=== PATIENT | female | born 1995 | race Caucasian/White ===

== ENCOUNTER 2017-03-16 16:54 | Emergency (ER) | payer OTHER ==
[2017-03-16 17:22] VITALS: BP 104/69; PULSE 72; RESP 18; TEMP 98.6
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
--- NOTE | 2017-03-16 18:13 | XR ---
EXAMINATION TYPE: XR foot complete RT DATE OF EXAM: 03/16/2017 COMPARISON: NONE HISTORY: Pain TECHNIQUE: 3 views FINDINGS: I see no fracture nor dislocation. Metatarsals are intact. IMPRESSION: Negative right foot exam
== END 2017-03-16 18:06 | disposition home or self-care (01) ==
LOC: EC 16:54
DX: S90.111A Contusion of right great toe without damage to nail, initial encounter (principal); S90.121A Contusion of right lesser toe(s) without damage to nail, initial encounter; V98.8XXA Other specified transport accidents, initial encounter; Y92.69 Other specified industrial and construction area as the place of occurrence of the external cause; Y99.0 Civilian activity done for income or pay
CPT/HCPCS: 99284

== ENCOUNTER 2017-06-01 17:41 | Emergency (ER) | payer OTHER ==
[2017-06-01] MEDS ORDERED: ACETAMINOPHEN TAB 325 MG TAB PO STA (17:58)
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
--- NOTE | 2017-06-01 19:03 | CT ---
EXAMINATION TYPE: CT brain wo con DATE OF EXAM: 06/01/2017 COMPARISON: November 04, 2012. HISTORY: Right sided injury today. Complain of headache and dizziness CT DLP: 999.8 mGycm. Automated Exposure Control for Dose Reduction was Utilized. TECHNIQUE: CT scan of the head is performed without contrast. FINDINGS: There is no acute intracranial hemorrhage, mass effect, or midline shift identified. The ventricles and sulci are within normal limits in size. The globes are intact and the visualized sin uses are clear. There is a mucous retention cyst/polyp in the right maxillary sinus which is stable w hen compared to the previous study from November 04, 2012. IMPRESSION: No acute intracranial hemorrhage, mass effect, or midline shift is seen.
[2017-06-01 19:27] VITALS: BP 120/64; PULSE 75; RESP 18; TEMP 98.4
== END 2017-06-01 19:46 | disposition home or self-care (01) ==
LOC: EC 17:41
DX: S06.0X0A Concussion without loss of consciousness, initial encounter (principal); W22.8XXA Striking against or struck by other objects, initial encounter
CPT/HCPCS: 70450; 81025; 99284

== ENCOUNTER 2017-06-05 08:42 | Emergency (ER) | payer OTHER ==
[2017-06-05 08:57] VITALS: BP 124/75; PULSE 101; RESP 18; TEMP 98.1
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
== END 2017-06-05 09:29 | disposition home or self-care (01) ==
LOC: EC 08:42
DX: F07.81 Postconcussional syndrome (principal); R11.0 Nausea
CPT/HCPCS: 99284

== ENCOUNTER → 2017-06-07 | Outpatient (CLI) | payer OTHER ==
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
== END | disposition home or self-care (01) ==
LOC: RADCTMAIN 14:33
PROVIDERS: ATTEND Family Medicine
DX: G44.319 Acute post-traumatic headache, not intractable (principal); R53.83 Other fatigue; R11.0 Nausea
CPT/HCPCS: 70450

== ENCOUNTER 2017-07-26 19:47 | Emergency (ER) | payer OTHER ==
--- NOTE | 2017-07-26 21:36 | ED ---
General Adult HPI - General Chief complaint: Abdominal Pain Stated complaint: abd pain Time Seen by Provider: 07/26/17 21:30 Source: patient, RN notes reviewed Mode of arrival: ambulatory Limitations: no limitations - History of Present Illness Initial comments: Patient is a pleasant 22-year-old female presenting to the emergency department with lower abdominal discomfort. Onset of symptoms was yesterday morning. Discomfort has been somewhat intermittent. Patient has had some similar symptoms previously associated with her irritable bowel syndrome. Patient does have nausea. No vomiting. patient diarrhea. No fever. Patient is approximately 3 weeks . Last menstrual period was . - Related Data Home Medications Medication Instructions Recorded Confirmed Vitafusion Gummies 2 tab PO DAILY 07/26/17 07/26/17 Allergies Allergy/AdvReac Type Severity Reaction Status Date / Time No Known Allergies Allergy Verified 07/26/17 20:42 Review of Systems ROS Statement: Those systems with pertinent positive or pertinent negative responses have been documented in the HPI. ROS Other: All systems not noted in ROS Statement are negative. Constitutional: Denies: fever Eyes: Denies: eye pain ENT: Denies: ear pain Respiratory: Denies: cough Cardiovascular: Denies: chest pain Endocrine: Denies: fatigue Gastrointestinal: Reports: abdominal pain Genitourinary: Denies: urgency Musculoskeletal: Denies: back pain Skin: Denies: rash Neurological: Denies: weakness Past Medical History Past Medical History: No Reported History History of Any Multi-Drug Resistant Organisms: None Reported Past Surgical History: Adenoidectomy, Tonsillectomy Past Psychological History: Anxiety, Depression Smoking Status: Never smoker Past Alcohol Use History: None Reported Past Drug Use History: None Reported General Exam Limitations: no limitations General appearance: alert, in no apparent distress Head exam: Present: atraumatic Eye exam: Present: normal appearance, PERRL ENT exam: Present: normal oropharynx Neck exam: Present: normal inspection Respiratory exam: Present: normal lung sounds bilaterally Cardiovascular Exam: Present: regular rate, normal rhythm GI/Abdominal exam: Present: soft, tenderness (Mild tenderness in the lower abdomen). Absent: distended, guarding, rebound, rigid External exam: Present: normal external exam (RN Whit is present) Speculum exam: Present: normal speculum exam By manual exam: Present: normal by manual exam Extremities exam: Present: normal inspection Neurological exam: Present: alert Psychiatric exam: Present: normal affect, normal mood Skin exam: Present: normal color Course Vital Signs 07/26/17 20:15 Temperature 98.7 F Pulse Rate 76 Respiratory 18 Rate Blood Pressure 119/67 O2 Sat by Pulse 100 Oximetry Medical Decision Making - Medical Decision Making Patient is reexamined in updated. Patient and mother are made aware that tubal/ ectopic has not completely ruled out at this time. Patient is aware of need for repeat beta hCG level in 48 hours. Patient is also made aware of need to follow-up with [facility] on Saturday. Patient states she has an appointment with her primary care physician on Saturday however is advised to follow-up with [facility] sooner. - Lab Data Result diagrams: 07/26/17 21:40 07/26/17 21:40 Lab Results 07/26/17 07/26/17 07/26/17 Range/Units 20:15 21:40 21:40 WBC 7.8 (4.0-11.0) k/uL RBC 4.13 (3.80-5.40) m/uL Hgb 12.6 (11.4-16.0) gm/dL Hct 37.5 (34.0-46.0) % MCV 91.0 (80.0-100.0) fL MCH 30.4 (25.0-35.0) pg MCHC 33.5 (31.0-37.0) g/dL RDW 13.7 (11.5-15.5) % Plt Count 268 (150-450) k/uL Neutrophils % 56 % Lymphocytes % 34 % Monocytes % 5 % Eosinophils % 1 % Basophils % 1 % Neutrophils # 4.4 (1.3-7.7) k/uL Lymphocytes # 2.7 (1.0-4.8) k/uL Monocytes # 0.4 (0-1.0) k/uL Eosinophils # 0.1 (0-0.7) k/uL Basophils # 0.1 (0-0.2) k/uL Sodium 139 (137-145) mmol/L Potassium 3.9 (3.5-5.1) mmol/L Chloride 106 (98-107) mmol/L Carbon Dioxide 21 L (22-30) mmol/L Anion Gap 12 mmol/L BUN 14 (7-17) mg/dL Creatinine 0.60 (0.52-1.04) mg/dL Est GFR (MDRD) Af Amer >60 (>60 ml/min/1.73 sqM) Est GFR (MDRD) Non-Af >60 (>60 ml/min/1.73 sqM) Glucose 76 (74-99) mg/dL Calcium 9.1 (8.4-10.2) mg/dL Total Bilirubin 0.7 (0.2-1.3) mg/dL AST 18 (14-36) U/L ALT 20 (9-52) U/L Alkaline Phosphatase 69 (38-126) U/L Total Protein 6.7 (6.3-8.2) g/dL Albumin 4.2 (3.5-5.0) g/dL HCG, Quant 113.1 mIU/mL Urine Color Yellow Urine Appearance Cloudy H (Clear) Urine pH 5.5 (5.0-8.0) Ur Specific [place] 1.018 (1.001-1.035) Urine Protein Negative (Negative) Urine Glucose (UA) Negative (Negative) Urine Ketones 2+ H (Negative) Urine Blood Negative (Negative) Urine Nitrite Negative (Negative) Urine Bilirubin Negative (Negative) Urine Urobilinogen <2.0 (<2.0) mg/dL Ur Leukocyte Esterase Negative (Negative) Urine RBC <1 (0-5) /hpf Urine WBC 2 (0-5) /hpf Ur Squamous Epith Cells 17 H (0-4) /hpf Urine Bacteria Rare H (None) /hpf Urine Mucus Rare H (None) /hpf Blood Type Blood Type Recheck 07/26/17 Range/Units 21:40 WBC (4.0-11.0) k/uL RBC (3.80-5.40) m/uL Hgb (11.4-16.0) gm/dL Hct (34.0-46.0) % MCV (80.0-100.0) fL MCH (25.0-35.0) pg MCHC (31.0-37.0) g/dL RDW (11.5-15.5) % Plt Count (150-450) k/uL Neutrophils % % Lymphocytes % % Monocytes % % Eosinophils % % Basophils % % Neutrophils # (1.3-7.7) k/uL Lymphocytes # (1.0-4.8) k/uL Monocytes # (0-1.0) k/uL Eosinophils # (0-0.7) k/uL Basophils # (0-0.2) k/uL Sodium (137-145) mmol/L Potassium (3.5-5.1) mmol/L Chloride (98-107) mmol/L Carbon Dioxide (22-30) mmol/L Anion Gap mmol/L BUN (7-17) mg/dL Creatinine (0.52-1.04) mg/dL Est GFR (MDRD) Af Amer (>60 ml/min/1.73 sqM) Est GFR (MDRD) Non-Af (>60 ml/min/1.73 sqM) Glucose (74-99) mg/dL Calcium (8.4-10.2) mg/dL Total Bilirubin (0.2-1.3) mg/dL AST (14-36) U/L ALT (9-52) U/L Alkaline Phosphatase (38-126) U/L Total Protein (6.3-8.2) g/dL Albumin (3.5-5.0) g/dL HCG, Quant mIU/mL Urine Color Urine Appearance (Clear) Urine pH (5.0-8.0) Ur Specific [place] (1.001-1.035) Urine Protein (Negative) Urine Glucose (UA) (Negative) Urine Ketones (Negative) Urine Blood (Negative) Urine Nitrite (Negative) Urine Bilirubin (Negative) Urine Urobilinogen (<2.0) mg/dL Ur Leukocyte Esterase (Negative) Urine RBC (0-5) /hpf Urine WBC (0-5) /hpf Ur Squamous Epith Cells (0-4) /hpf Urine Bacteria (None) /hpf Urine Mucus (None) /hpf Blood Type O Positive Blood Type Recheck No - Radiology Data Radiology results: report reviewed (Pelvic ultrasound shows no evidence of or ectopic .) Disposition Clinical Impression: Abdominal pain Disposition: HOME SELF-CARE Condition: Stable Instructions: Abdominal Pain in (ED) Additional Instructions: Please follow-up with primary care physician as scheduled or earlier. Please follow-up with [facility] on Saturday. Return for increased pain, vaginal bleeding, fevers, worsening or changing symptoms or other concerns. Description written for repeat serum beta hCG in 48 hours for right now. Referrals: Lynn Clemens MD [Primary Care Provider] - 1-2 days Fely Garcia DO [Doctor of Osteopathic Medicine] - 1-2 days Time of Disposition: 23:16
[2017-07-26 21:54] LABS: Basophils # (A) 0.1 k/uL (0-0.2); Basophils % (A) 1 %; CH 30.2; CHCM 33.3; Eosinophils # (A) 0.1 k/uL (0-0.7); Eosinophils % (A) 1 %; HCT 37.5 % (34.0-46.0); HDW 2.27; HGB 12.6 gm/dL (11.4-16.0); Luc # (Auto) 0.17; Luc % (Auto) 2; Lymphocytes # (A) 2.7 k/uL (1.0-4.8); Lymphocytes % (A) 34 %; MCH 30.4 pg (25.0-35.0); MCHC 33.5 g/dL (31.0-37.0); Mean Platelet Volume 7.9; Monocytes # (A) 0.4 k/uL (0-1.0); Monocytes % (A) 5 %; Neutrophils # (A) 4.4 k/uL (1.3-7.7); Neutrophils % (A) 56 %; RBC 4.13 m/uL (3.80-5.40); RDW 13.7 % (11.5-15.5); WBC 7.8 k/uL (4.0-11.0); WBC (Perox) 8.06
[2017-07-26 21:56] LABS: Appearance,Urine Cloudy (Clear); Bacteria,Urine Rare /hpf; Bilirubin,Urine Negative (Negative); Glucose,Urine (UA) Negative (Negative); Ketones,Urine 2+ (Negative); Leukocyte Esterase,Urine Negative (Negative); Mucus,Urine Rare /hpf; Nitrite,Urine Negative (Negative); PH, Urine 5.5 (5.0-8.0); Particle Count 7085; Protein,Urine Negative (Negative); RBC,Urine <1 /hpf (0-5); Specific Gravity,Urine 1.018 (1.001-1.035); Squamous Epithelial Cell,Urine 17 /hpf (0-4); UA Billing (MACRO vs. MICRO) MICRO; Urobilinogen,Urine <2.0 mg/dL (<2.0); WBC,Urine 2 /hpf (0-5)
[2017-07-26 22:07] LABS: ALT 20 U/L (9-52); AST 18 U/L (14-36); Alkaline Phosphatase 69 U/L (38-126); Anion Gap 12 mmol/L; Blood Urea Nitrogen 14 mg/dL (7-17); Calcium 9.1 mg/dL (8.4-10.2); Carbon Dioxide 21 mmol/L (22-30); Chloride 106 mmol/L (98-107); Glucose 76 mg/dL (74-99); Non-African American GFR(MDRD) >60 (>60 ml/min/1.73 sqM); Potassium 3.9 mmol/L (3.5-5.1); Sodium 139 mmol/L (137-145); Total Bilirubin 0.7 mg/dL (0.2-1.3); Total Protein 6.7 g/dL (6.3-8.2)
--- NOTE | 2017-07-26 22:48 | US ---
EXAMINATION TYPE: US OB <= 14 wks transvag DATE OF EXAM: 07/26/2017 COMPARISON: NONE CLINICAL HISTORY: pain. EXAM PERFORMED: Transvaginal (TV) and Transabdominal (TA) EXAM MEASUREMENTS: GESTATIONAL AGE / DATING Physician Established: Not yet established Dates by LMP: (4 weeks/0 days) EDC: 04/04/2018 Dates by First Scan: No previous this is first scan Dates by Current Scan for: No IUP seen at this time MATERNAL ANATOMY Uterus: 7.5 x 3.5 x 5.0 cm Right Ovary: 2.6 x 1.6 x 1.4cm Left Ovary: 3.2 x 2.1 x 3.5cm Post CDS / Adnexa: wnl Presence of free fluid: no Presence of corpus luteal cyst: no GESTATION / SURVEY CRL: Not seen at this time MSD: Not seen at this time Yolk Sac (normal less than 6mm): Not seen IUP: No IUP seen at this time Date of LMP: 06/28/2018 Beta HcG (if available): Not available at this time No IUP visualized at this time IMPRESSION: No evidence of a . No evidence of ectopic . MTDD
[2017-07-26 23:45] VITALS: BP 110/59; PULSE 83; RESP 14; TEMP 97.8
[2017-07-29 12:05] LABS: Chlamydia/GC Source Vaginal
== END 2017-07-26 23:46 | disposition home or self-care (01) ==
LOC: EC 19:47
DX: O99.89 Other specified diseases and conditions complicating pregnancy, childbirth and the puerperium (principal); R10.30 Lower abdominal pain, unspecified; R11.0 Nausea; Z79.899 Other long term (current) drug therapy; Z3A.01 Less than 8 weeks gestation of pregnancy
CPT/HCPCS: 36415; 76801; 76817; 80053; 81001; 84702; 85025; 86900; 86901; 87070; 87205; 87491; 87591; 87808; 99284

== ENCOUNTER 2017-08-17 21:44 | Emergency (ER) | payer OTHER ==
[2017-08-17 21:50] VITALS: TEMP 98
[2017-08-17 22:50] LABS: Appearance,Urine Cloudy (Clear); Bacteria,Urine Rare /hpf; Bilirubin,Urine Negative (Negative); Blood,Urine Negative (Negative); Color,Urine Yellow; Glucose,Urine (UA) Negative (Negative); Ketones,Urine Trace (Negative); Leukocyte Esterase,Urine Negative (Negative); Mucus,Urine Rare /hpf; Nitrite,Urine Negative (Negative); Protein,Urine Trace (Negative); RBC,Urine 1 /hpf (0-5); Specific Gravity,Urine 1.029 (1.001-1.035); Squamous Epithelial Cell,Urine 8 /hpf (0-4); WBC,Urine 2 /hpf (0-5)
--- NOTE | 2017-08-17 23:13 | ED ---
Skin/Abscess/FB HPI - General Chief complaint: Skin/Abscess/Foreign Body Stated complaint: Rash Time Seen by Provider: 08/17/17 21:55 Source: patient, RN notes reviewed, old records reviewed Mode of arrival: ambulatory Limitations: no limitations - History of Present Illness Initial comments: This is a 22-year-old female presents in there to department today to complain of a rash of her vaginal area for the past three days. Very painful. She reports that she's been diagnosed with herpes in the past. She's currently eight weeks . She denies any fever chills. She denies any vaginal discharge. She reports she came back from [place] and is stressed due to family trouble. This rash started then. - Related Data Home Medications Medication Instructions Recorded Confirmed Vitafusion Gummies 2 tab PO DAILY 07/26/17 08/17/17 Previous Rx's Medication Instructions Recorded Nitrofurantoin Monohyd/M-Cryst 100 mg PO Q12HR #14 cap 08/17/17 [Macrobid] valACYclovir HCL [Valtrex] 1,000 mg PO Q12HR #20 tab 08/17/17 Allergies Allergy/AdvReac Type Severity Reaction Status Date / Time No Known Allergies Allergy Verified 08/17/17 21:50 Review of Systems ROS Statement: Those systems with pertinent positive or pertinent negative responses have been documented in the HPI. ROS Other: All systems not noted in ROS Statement are negative. Past Medical History Past Medical History: No Reported History History of Any Multi-Drug Resistant Organisms: None Reported Past Surgical History: Adenoidectomy, Tonsillectomy Past Psychological History: Anxiety, Depression Smoking Status: Never smoker Past Alcohol Use History: None Reported Past Drug Use History: None Reported General Exam - General Exam Comments Initial Comments: This is a 22 year old female, no distress Limitations: no limitations General appearance: alert, in no apparent distress Head exam: Present: atraumatic, normocephalic, normal inspection Eye exam: Present: normal appearance, PERRL, EOMI. Absent: scleral icterus, conjunctival injection, periorbital swelling ENT exam: Present: normal exam, mucous membranes moist Neck exam: Present: normal inspection. Absent: tenderness, meningismus, lymphadenopathy Respiratory exam: Present: normal lung sounds bilaterally. Absent: respiratory distress, wheezes, rales, rhonchi, stridor Cardiovascular Exam: Present: regular rate, normal rhythm, normal heart sounds. Absent: systolic murmur, diastolic murmur, rubs, gallop, clicks GI/Abdominal exam: Present: soft, normal bowel sounds. Absent: distended, tenderness, guarding, rebound, rigid External exam: Present: normal external exam, lesions (erythematous sporadic lesions over bilateral labia. Some area of blistering. ) Extremities exam: Present: normal inspection, full ROM, normal capillary refill. Absent: tenderness, pedal edema, joint swelling, calf tenderness Back exam: Present: normal inspection Neurological exam: Present: alert, oriented X3, CN II-XII intact Psychiatric exam: Present: normal affect, normal mood Skin exam: Present: warm, dry, intact, normal color. Absent: rash Course Vital Signs 08/17/17 08/17/17 21:48 23:39 Temperature 98 F Pulse Rate 116 H 91 Respiratory 18 16 Rate Blood Pressure 138/69 123/63 O2 Sat by Pulse 98 98 Oximetry Medical Decision Making - Medical Decision Making This is a 22 year old female with 3 days of vaginal rash. She has been diagnosed with herpes in the past. Rash appears to be similiar to herpes genitalia. Patient urinalysis shows evidence of bacteruria. she is 8 weeks . I will start patient on macrobid for bacteruiria, as well as acyclovir. discussed follow up with OBGYN and return parameters discussed. - Lab Data Lab Results 08/17/17 Range/Units 22:38 Urine Color Yellow Urine Appearance Cloudy H (Clear) Urine pH 6.0 (5.0-8.0) Ur Specific [place] 1.029 (1.001-1.035) Urine Protein Trace H (Negative) Urine Glucose (UA) Negative (Negative) Urine Ketones Trace H (Negative) Urine Blood Negative (Negative) Urine Nitrite Negative (Negative) Urine Bilirubin Negative (Negative) Urine Urobilinogen 2.0 (<2.0) mg/dL Ur Leukocyte Esterase Negative (Negative) Urine RBC 1 (0-5) /hpf Urine WBC 2 (0-5) /hpf Ur Squamous Epith Cells 8 H (0-4) /hpf Urine Bacteria Rare H (None) /hpf Urine Mucus Rare H (None) /hpf Disposition Clinical Impression: Herpes genitalia, Bacteriuria during Disposition: HOME SELF-CARE Condition: Good Instructions: Genital Herpes Simplex (ED) Additional Instructions: is follow-up with primary care provider. Return to emergency department if any alarming signs or symptoms occur. Prescriptions: Nitrofurantoin Monohyd/M-Cryst [Macrobid] 100 mg PO Q12HR #14 cap valACYclovir HCL [Valtrex] 1,000 mg PO Q12HR #20 tab Referrals: Lynn Clemens MD [Primary Care Provider] - 1-2 days Time of Disposition: 23:11
[2017-08-17 23:40] VITALS: BP 123/63; PULSE 91; RESP 16
--- NOTE | 2017-08-19 03:00 | CDI ---
Documentation Clarification OP Dear KENNETH Adam: Please do addendum to ED report for HPI , Physical exam and MDM. Thank you, Julienne Chase Specimen Processor If you have any question, Please contact manager social media at [phone] [facility]
== END 2017-08-17 23:40 | disposition home or self-care (01) ==
LOC: EC 21:44
DX: O98.311 Other infections with a predominantly sexual mode of transmission complicating pregnancy, first trimester (principal); A60.09 Herpesviral infection of other urogenital tract; O23.40 Unspecified infection of urinary tract in pregnancy, unspecified trimester; R82.71 Bacteriuria; Z3A.08 8 weeks gestation of pregnancy
CPT/HCPCS: 81001; 87086; 99283

== ENCOUNTER → 2017-08-27 | Outpatient (CLI) | payer BC, OTHER ==
--- NOTE | 2017-08-27 18:30 | US ---
EXAMINATION TYPE: US OB <= 14 wk fetus DATE OF EXAM: 08/27/2017 COMPARISON: CLINICAL HISTORY: Z34.01 Encounter for supervision of normal first p. Dates EXAM PERFORMED: Transabdominal (TA) EXAM MEASUREMENTS: GESTATIONAL AGE / DATING Dates by LMP: (8 weeks/4 days) EDC: 04/04/2018 Dates by First Scan: IUP not seen with first scan Dates by Current Scan for: (8 weeks/3 days) EDC: 04/05/2018 MATERNAL ANATOMY Uterus: 8.2 x 6.5 x 6.0 cm Right Ovary: 3.0 x 1.9 x 1.5 cm Left Ovary: 2.9 x 2.2 x 1.5 cm Post CDS / Adnexa: no free fluid Presence of free fluid: no Presence of corpus luteal cyst: no Presence of subchorionic bleed: Hypoechoic lesion seen in JUDAH adjacent to gestational sac = 1.8 x 2.3 x 1.3 cm GESTATION / SURVEY CRL: 1.9 cm (8 weeks/3 days) MSD: seen, not measured Yolk Sac (normal less than 6mm): 2.8 mm Heart Rate: 168 bpm Rhythm: Normal IUP: Viable IUP Date of LMP: 06/28/2017 Beta HcG (if available): not available Live IUP measuring 8 weeks 3 days. IMPRESSION: The ultrasound gestational age is 8 weeks and 3 days. There is probably a very small subchorionic hem orrhage..
== END | disposition home or self-care (01) ==
LOC: RADUSWWP 16:09
PROVIDERS: ATTEND Obstetrics & Gynecology
DX: Z34.01 Encounter for supervision of normal first pregnancy, first trimester (principal); Z3A.08 8 weeks gestation of pregnancy
CPT/HCPCS: 76801

== ENCOUNTER 2017-10-02 17:25 | Emergency (ER) | payer BC, OTHER ==
[2017-10-02 17:50] VITALS: RESP 18
--- NOTE | 2017-10-02 18:48 | ED ---
General Adult HPI - General Chief complaint: Nausea/Vomiting/Diarrhea Stated complaint: poss med reaction, 14 weeks preg Time Seen by Provider: 10/02/17 18:06 Source: patient, RN notes reviewed Mode of arrival: ambulatory Limitations: no limitations - History of Present Illness Initial comments: 22-year-old female presents to the emergency department with a chief complaint of episode of diarrhea. She states that she is currently on an antibiotic that she does not recall the name for UTI that her BILLBOARD POSTER Y and started on her a few days ago. She states she had one episode of diarrhea and became very concerned. She's been very nervous throughout this entire . She states that she she is very anxious about the whole process she's always anxious about what could happen in the she states this diarrhea just made her feel weird so she thought that she should be seen. She has any abdominal pain she denies any vaginal discharge or any vaginal bleeding. She states she had one episode of diarrhea and since has not had any. She was concerned due the episode and she read the package insert of the antibiotic that said that she should contact her doctor and her doctor is not in the office so she is here. Patient denies any recent fever, chills, shortness of breath, chest pain, back pain, abdominal pain, nausea vomiting, numbness or tingling, dysuria or hematuria, constipation, headaches or visual changes, or any other current symptoms. - Related Data Home Medications Medication Instructions Recorded Confirmed metroNIDAZOLE [Flagyl] 500 mg PO BID 10/02/17 10/02/17 Allergies Allergy/AdvReac Type Severity Reaction Status Date / Time No Known Allergies Allergy Verified 10/02/17 17:50 Review of Systems ROS Statement: Those systems with pertinent positive or pertinent negative responses have been documented in the HPI. ROS Other: All systems not noted in ROS Statement are negative. Past Medical History Past Medical History: No Reported History History of Any Multi-Drug Resistant Organisms: None Reported Past Surgical History: Adenoidectomy, Tonsillectomy Past Psychological History: Anxiety, Depression Smoking Status: Never smoker Past Alcohol Use History: None Reported Past Drug Use History: None Reported General Exam Limitations: no limitations General appearance: alert, in no apparent distress Eye exam: Present: normal appearance, PERRL, EOMI. Absent: scleral icterus, conjunctival injection, periorbital swelling ENT exam: Present: normal exam, mucous membranes moist Neck exam: Present: normal inspection. Absent: tenderness, meningismus, lymphadenopathy Respiratory exam: Present: normal lung sounds bilaterally. Absent: respiratory distress, wheezes, rales, rhonchi, stridor Cardiovascular Exam: Present: regular rate, normal rhythm, normal heart sounds. Absent: systolic murmur, diastolic murmur, rubs, gallop, clicks GI/Abdominal exam: Present: soft, normal bowel sounds. Absent: distended, tenderness, guarding, rebound, rigid Neurological exam: Present: alert, oriented X3 Psychiatric exam: Present: normal affect, normal mood Skin exam: Present: warm, dry, intact, normal color. Absent: rash Course Vital Signs 10/02/17 17:44 Temperature 97.9 F Pulse Rate 103 H Respiratory 18 Rate Blood Pressure 113/68 O2 Sat by Pulse 100 Oximetry Medical Decision Making - Medical Decision Making 22-year-old female presents for diarrhea who is currently . Patient has a lot of anxiety about her . So far she has been told by the OB/ QUALITY IMPROVEMENT ANALYST everything is normal. At this time patient's urinalysis has been reviewed. At this time patient is informed to increase fluids in the diet. At this time we did discuss continued follow-up with the BILLBOARD POSTER. We discussed return parameters all questions. Patient stated that she understood and she is agreement this plan. She'll be discharged - Lab Data Lab Results 10/02/17 Range/Units 18:54 Urine Color Yellow Urine Appearance Clear (Clear) Urine pH 6.0 (5.0-8.0) Ur Specific [place] 1.019 (1.001-1.035) Urine Protein Negative (Negative) Urine Glucose (UA) Negative (Negative) Urine Ketones Trace H (Negative) Urine Blood Negative (Negative) Urine Nitrite Negative (Negative) Urine Bilirubin Negative (Negative) Urine Urobilinogen <2.0 (<2.0) mg/dL Ur Leukocyte Esterase Negative (Negative) Disposition Clinical Impression: Diarrhea Disposition: HOME SELF-CARE Condition: Stable Instructions: Acute Diarrhea (ED) Additional Instructions: Please use medication as discussed. Please follow up with family doctor if symptoms have not improved over the next two days. Please return to the emergency room if your symptoms increase or worsen or for any other concerns. Referrals: Lynn Clemens MD [Primary Care Provider] - 1-2 days Time of Disposition: 19:18
[2017-10-02 19:05] LABS: Appearance,Urine Clear (Clear); Bilirubin,Urine Negative (Negative); Blood,Urine Negative (Negative); Color,Urine Yellow; Glucose,Urine (UA) Negative (Negative); Ketones,Urine Trace (Negative); Leukocyte Esterase,Urine Negative (Negative); Nitrite,Urine Negative (Negative); Protein,Urine Negative (Negative); Specific Gravity,Urine 1.019 (1.001-1.035); Urobilinogen,Urine <2.0 mg/dL (<2.0)
[2017-10-02 19:40] VITALS: BP 118/58; PULSE 89; TEMP 98.2
== END 2017-10-02 19:39 | disposition home or self-care (01) ==
LOC: EC 17:25
DX: O99.89 Other specified diseases and conditions complicating pregnancy, childbirth and the puerperium (principal); R19.7 Diarrhea, unspecified; O99.342 Other mental disorders complicating pregnancy, second trimester; F41.9 Anxiety disorder, unspecified; Z3A.14 14 weeks gestation of pregnancy
CPT/HCPCS: 81003; 87086; 99284

== ENCOUNTER 2017-11-06 17:32 | Emergency (ER) | payer BC, OTHER ==
[2017-11-06 17:44] VITALS: RESP 18; TEMP 97.4
[2017-11-06] MEDS ORDERED: SODIUM CHLORIDE 0.9% 1,000 ML IV STA (18:07)
--- NOTE | 2017-11-06 18:08 | ED ---
Abdominal Pain HPI - General Chief Complaint: Abdominal Pain Stated Complaint: Stomach pain/19 wks Time Seen by Provider: 11/06/17 17:55 Source: patient, RN notes reviewed, old records reviewed Mode of arrival: ambulatory Limitations: no limitations - History of Present Illness Initial Comments: Physical is a 22-year-old female presents emergency Department chief complaint of syncopal episode. She is currently 19 weeks . She states that she started to feel very weird today she thought she initially was having episode of low blood sugar. She states that she also has chronic hyponatremia but has been eating a lot of salty foods lately since she does not believe that the hyponatremia is related to her syncopal episode. Patient states that yesterday she did have an asthma attack which she was "wrestling with her boyfriend". Patient reports that she does not have an inhaler that she is regular. She states that she got over those symptoms briefly denies any chest pain or shortness of breath at this time. She states that she's been having some lower abdominal discomfort during her entire related to the baby growing and stretching. - Related Data Home Medications Medication Instructions Recorded Confirmed Acetaminophen [Tylenol Extra 1,000 mg PO BID PRN 11/06/17 11/06/17 Strength] Pnv No.95/Ferrous Fum/Folic AC 1 tab PO DAILY 11/06/17 11/06/17 [ Multivitamin Tablet] Allergies Allergy/AdvReac Type Severity Reaction Status Date / Time No Known Allergies Allergy Verified 11/06/17 18:31 Review of Systems ROS Statement: Those systems with pertinent positive or pertinent negative responses have been documented in the HPI. ROS Other: All systems not noted in ROS Statement are negative. Past Medical History Past Medical History: No Reported History History of Any Multi-Drug Resistant Organisms: None Reported Past Surgical History: Adenoidectomy, Tonsillectomy Past Psychological History: Anxiety, Depression Smoking Status: Never smoker Past Alcohol Use History: None Reported Past Drug Use History: None Reported General Exam - General Exam Comments Initial Comments: 22-year-old female. No acute distress. Limitations: no limitations General appearance: alert, in no apparent distress Head exam: Present: atraumatic, normocephalic, normal inspection Eye exam: Present: normal appearance, PERRL, EOMI. Absent: scleral icterus, conjunctival injection, periorbital swelling ENT exam: Present: normal exam, mucous membranes moist Neck exam: Present: normal inspection. Absent: tenderness, meningismus, lymphadenopathy Respiratory exam: Present: normal lung sounds bilaterally. Absent: respiratory distress, wheezes, rales, rhonchi, stridor Cardiovascular Exam: Present: regular rate, normal rhythm, normal heart sounds. Absent: systolic murmur, diastolic murmur, rubs, gallop, clicks GI/Abdominal exam: Present: soft, tenderness (Patient reports some left lower quadrant tenderness has been chronic her entire . Patient has protuberant abdomen consistent with proximal smelling 19/20 weeks gestation.), normal bowel sounds. Absent: distended, guarding, rebound, rigid Extremities exam: Present: normal inspection, full ROM, normal capillary refill. Absent: tenderness, pedal edema, joint swelling, calf tenderness Back exam: Present: normal inspection Neurological exam: Present: alert, oriented X3, CN II-XII intact Psychiatric exam: Present: normal affect, normal mood Skin exam: Present: warm, dry, intact, normal color. Absent: rash Course Vital Signs 11/06/17 11/06/17 17:40 18:54 Temperature 97.4 F L Pulse Rate 104 H 86 Respiratory 18 18 Rate Blood Pressure 111/60 120/66 O2 Sat by Pulse 98 99 Oximetry Medical Decision Making - Medical Decision Making Patient is a 22-year-old female is 19 weeks presents after blood. Initial vitals to low blood sugar or low sodium. She snacks and that had a short syncopal episode. She was sitting position and felt slightly forward. She denies any specific pain chest pain shortness of breath. Denies any abdominal pain cramping. Patient was given IV fluids labwork obtained. Patient 's lower was all reviewed with a normal heart tones are between 150 and 140 range. Patient reports otherwise she feels well. Urinalysis negative for infection. Patient is reevaluated states she would like to go home after seeing the fluids. I discussed that she needs to remain hydrated. Discussed return to emergency department if any alarming signs or symptoms occur. She follows up with her WEB PRESS OPERATOR in the next couple days. - Lab Data Result diagrams: 11/06/17 18:12 11/06/17 18:12 Lab Results 11/06/17 11/06/17 11/06/17 Range/Units 18:12 18:12 18:12 WBC 12.1 H (4.0-11.0) k/uL RBC 4.10 (3.80-5.40) m/uL Hgb 12.4 (11.4-16.0) gm/dL Hct 36.3 (34.0-46.0) % MCV 88.4 (80.0-100.0) fL MCH 30.3 (25.0-35.0) pg MCHC 34.2 (31.0-37.0) g/dL RDW 13.1 (11.5-15.5) % Plt Count 269 (150-450) k/uL Neutrophils % 76 % Lymphocytes % 17 % Monocytes % 4 % Eosinophils % 1 % Basophils % 0 % Neutrophils # 9.3 H (1.3-7.7) k/uL Lymphocytes # 2.1 (1.0-4.8) k/uL Monocytes # 0.5 (0-1.0) k/uL Eosinophils # 0.2 (0-0.7) k/uL Basophils # 0.0 (0-0.2) k/uL PT (9.0-12.0) sec INR (<1.2) APTT (22.0-30.0) sec Sodium 139 (137-145) mmol/L Potassium 4.4 (3.5-5.1) mmol/L Chloride 108 H (98-107) mmol/L Carbon Dioxide 20 L (22-30) mmol/L Anion Gap 11 mmol/L BUN 9 (7-17) mg/dL Creatinine 0.40 L (0.52-1.04) mg/dL Est GFR (CKD-EPI)AfAm >90 (>60 ml/min/1.73 sqM) Est GFR (CKD-EPI)NonAf >90 (>60 ml/min/1.73 sqM) Glucose 85 (74-99) mg/dL Calcium 9.6 (8.4-10.2) mg/dL Magnesium 1.8 (1.6-2.3) mg/dL Total Bilirubin 0.4 (0.2-1.3) mg/dL AST 23 (14-36) U/L ALT 11 (9-52) U/L Alkaline Phosphatase 59 (38-126) U/L Total Creatine Kinase 53 (30-135) U/L CK-MB (CK-2) 0.4 (0.0-2.4) ng/mL CK-MB (CK-2) Rel Index 0.8 Troponin I <0.012 (0.000-0.034) ng/mL Total Protein 7.2 (6.3-8.2) g/dL Albumin 4.2 (3.5-5.0) g/dL Urine Color Urine Appearance (Clear) Urine pH (5.0-8.0) Ur Specific [place] (1.001-1.035) Urine Protein (Negative) Urine Glucose (UA) (Negative) Urine Ketones (Negative) Urine Blood (Negative) Urine Nitrite (Negative) Urine Bilirubin (Negative) Urine Urobilinogen (<2.0) mg/dL Ur Leukocyte Esterase (Negative) 11/06/17 11/06/17 Range/Units 18:12 18:12 WBC (4.0-11.0) k/uL RBC (3.80-5.40) m/uL Hgb (11.4-16.0) gm/dL Hct (34.0-46.0) % MCV (80.0-100.0) fL MCH (25.0-35.0) pg MCHC (31.0-37.0) g/dL RDW (11.5-15.5) % Plt Count (150-450) k/uL Neutrophils % % Lymphocytes % % Monocytes % % Eosinophils % % Basophils % % Neutrophils # (1.3-7.7) k/uL Lymphocytes # (1.0-4.8) k/uL Monocytes # (0-1.0) k/uL Eosinophils # (0-0.7) k/uL Basophils # (0-0.2) k/uL PT 9.6 (9.0-12.0) sec INR 1.0 (<1.2) APTT 24.8 (22.0-30.0) sec Sodium (137-145) mmol/L Potassium (3.5-5.1) mmol/L Chloride (98-107) mmol/L Carbon Dioxide (22-30) mmol/L Anion Gap mmol/L BUN (7-17) mg/dL Creatinine (0.52-1.04) mg/dL Est GFR (CKD-EPI)AfAm (>60 ml/min/1.73 sqM) Est GFR (CKD-EPI)NonAf (>60 ml/min/1.73 sqM) Glucose (74-99) mg/dL Calcium (8.4-10.2) mg/dL Magnesium (1.6-2.3) mg/dL Total Bilirubin (0.2-1.3) mg/dL AST (14-36) U/L ALT (9-52) U/L Alkaline Phosphatase (38-126) U/L Total Creatine Kinase (30-135) U/L CK-MB (CK-2) (0.0-2.4) ng/mL CK-MB (CK-2) Rel Index Troponin I (0.000-0.034) ng/mL Total Protein (6.3-8.2) g/dL Albumin (3.5-5.0) g/dL Urine Color Colorless Urine Appearance Clear (Clear) Urine pH 5.5 (5.0-8.0) Ur Specific [place] 1.006 (1.001-1.035) Urine Protein Negative (Negative) Urine Glucose (UA) Negative (Negative) Urine Ketones Negative (Negative) Urine Blood Negative (Negative) Urine Nitrite Negative (Negative) Urine Bilirubin Negative (Negative) Urine Urobilinogen <2.0 (<2.0) mg/dL Ur Leukocyte Esterase Negative (Negative) - Radiology Data Radiology results: report reviewed EKG sinus tachycardia, ventricular rate of 102 bpm. ID interval 132 ms. QRS duration 94 ms. QT QTc is 328/427 ms. No evidence of ST elevation or T-wave inversion. On suture ventricular arrhythmias. Disposition Clinical Impression: Syncope, Disposition: HOME SELF-CARE Condition: Good Instructions: Syncope (ED) Additional Instructions: Patient is follow-up with WEB PRESS OPERATOR. Patient remaining hydrated. Has small frequent snacks throughout the day. Return to the emergency department if any alarming signs or symptoms occur. Referrals: Lynn Clemens MD [Primary Care Provider] - 1-2 days Time of Disposition: 19:52
[2017-11-06 18:26] LABS: Basophils % (A) 0 %; Eosinophils # (A) 0.2 k/uL (0-0.7); Eosinophils % (A) 1 %; HCT 36.3 % (34.0-46.0); HGB 12.4 gm/dL (11.4-16.0); Lymphocytes # (A) 2.1 k/uL (1.0-4.8); Lymphocytes % (A) 17 %; MCH 30.3 pg (25.0-35.0); MCHC 34.2 g/dL (31.0-37.0); MCV 88.4 fL (80.0-100.0); Mean Platelet Volume 7.4; Monocytes # (A) 0.5 k/uL (0-1.0); Monocytes % (A) 4 %; Neutrophils # (A) 9.3 k/uL (1.3-7.7); Neutrophils % (A) 76 %; Platelet Count 269 k/uL (150-450); RDW 13.1 % (11.5-15.5); WBC 12.1 k/uL (4.0-11.0)
[2017-11-06 18:28] LABS: Appearance,Urine Clear (Clear); Bilirubin,Urine Negative (Negative); Blood,Urine Negative (Negative); Color,Urine Colorless; Glucose,Urine (UA) Negative (Negative); Ketones,Urine Negative (Negative); Leukocyte Esterase,Urine Negative (Negative); Nitrite,Urine Negative (Negative); PH, Urine 5.5 (5.0-8.0); Protein,Urine Negative (Negative); Specific Gravity,Urine 1.006 (1.001-1.035); Urobilinogen,Urine <2.0 mg/dL (<2.0)
[2017-11-06 18:46] LABS: ALT 11 U/L (9-52); AST 23 U/L (14-36); Albumin 4.2 g/dL (3.5-5.0); Alkaline Phosphatase 59 U/L (38-126); Anion Gap 11 mmol/L; Blood Urea Nitrogen 9 mg/dL (7-17); Calcium 9.6 mg/dL (8.4-10.2); Carbon Dioxide 20 mmol/L (22-30); Chloride 108 mmol/L (98-107); Glucose 85 mg/dL (74-99); Magnesium 1.8 mg/dL (1.6-2.3); Partial Thromboplastin Time 24.8 sec (22.0-30.0); Potassium 4.4 mmol/L (3.5-5.1); Prothrombin Time 9.6 sec (9.0-12.0); Sodium 139 mmol/L (137-145); Total Bilirubin 0.4 mg/dL (0.2-1.3); Total Protein 7.2 g/dL (6.3-8.2)
[2017-11-06 18:54] LABS: Creatine Kinase 53 U/L (30-135)
[2017-11-06 19:07] LABS: Creatine Kinase MB 0.4 ng/mL (0.0-2.4); Troponin I <0.012 ng/mL (0.000-0.034)
[2017-11-06 20:15] VITALS: BP 109/67; PULSE 84
== END 2017-11-06 20:15 | disposition home or self-care (01) ==
LOC: EC 17:32
DX: O99.89 Other specified diseases and conditions complicating pregnancy, childbirth and the puerperium (principal); R55 Syncope and collapse; Z3A.19 19 weeks gestation of pregnancy
CPT/HCPCS: 36415; 80053; 81003; 82550; 82553; 83735; 84484; 85025; 85610; 85730; 93005; 96360; 96361; 99284

== ENCOUNTER → 2017-11-11 | Outpatient (CLI) | payer BC, OTHER ==
--- NOTE | 2017-11-12 10:02 | US ---
EXAMINATION TYPE: US OB anatomy transabd DATE OF EXAM: 11/11/2017 COMPARISON: NONE HISTORY: Z34.02 Encounter for supervision of normal TECHNIQUE: Transabdominal (TA) EXAM MEASUREMENTS: GESTATIONAL AGE / DATING Physician Established: (19 weeks/3 days) EDC: 04/04/18 Dates by LMP: (19 weeks/3 days) EDC: 04/04/18 Dates by First Scan: (19 weeks/2 days) EDC: 04/05/18 Dates by Current Scan for: (19 weeks/5 days) EDC: 04/02/18 SURVEY IUP: Single PLACENTA: Anterior PREVIA: No previa SHAILESH: 10.2cm CERVICAL LENGTH (transabdominal: norm > 3.0cm): 3.1 cm BIOMETRY PRESENTATION: Breech LIE: Vini BPD: 4.6 cm 19 weeks / 5 days HC: 17.2 cm 19 weeks / 5 days AC: 15.4 cm 20 weeks / 4 days FL: 3.1 cm 19 weeks / 4 days ESTIMATED WEIGHT IN GRAMS: 331 grams ESTIMATED WEIGHT IN LBS/OZ: 0 lbs. 12 oz. WEIGHT PERCENTAGE BASED ON ESTABLISHED DATE: 82 % HC/AC: 1.1 FL/AC: 20.0 HEART RATE: 153 bpm RHYTHM: Normal ANATOMY SEEN (within normal limits): * Lateral Vent (< 1 cm) 0.7 cm * Cisterna Magna (< 1.1 cm) 0.5 cm * Nuchal Fold (< 0.6 cm) 0.4 cm * Cerebellum (varies with age) 1.5 cm Choroid Plexus (bilateral) Midline Falx Cavus Septi Pellucidi Four Chamber Heart Outflow tracts: LVOT/RVOT Stomach Situs Nose / Lips Diaphragm Kidneys (bilateral) Bladder Cord Insert Three Vessel Cord Longitudinal Spine Transverse Spine Arms (bilateral) Legs (bilateral) 2nd tech called in, 4 ch, diaphragm, situs. MP IMPRESSION: Single live intrauterine with a sonographic calculated age of 19 weeks and 5 days and estim ated date of delivery of 04/02/2018, concordant with menstrual age. Unremarkable anatomic exam.
== END | disposition home or self-care (01) ==
LOC: RADUSWWP 13:34
PROVIDERS: ATTEND Obstetrics & Gynecology
DX: Z34.02 Encounter for supervision of normal first pregnancy, second trimester (principal); Z3A.19 19 weeks gestation of pregnancy
CPT/HCPCS: 76811

== ENCOUNTER 2017-11-28 15:15 | Emergency (ER) | payer BC, OTHER ==
[2017-11-28] MEDS ORDERED: SODIUM CHLORIDE 0.9% 500 ML IV STA (15:48)
[2017-11-28] MEDS ORDERED: SODIUM CHLORIDE 0.9% 1,000 ML IV STA (15:48)
[2017-11-28 16:09] LABS: Basophils % (A) 0 %; Eosinophils # (A) 0.1 k/uL (0-0.7); Eosinophils % (A) 1 %; HCT 37.7 % (34.0-46.0); HGB 12.6 gm/dL (11.4-16.0); Lymphocytes # (A) 2.1 k/uL (1.0-4.8); Lymphocytes % (A) 16 %; MCH 30.4 pg (25.0-35.0); MCHC 33.6 g/dL (31.0-37.0); MCV 90.6 fL (80.0-100.0); Mean Platelet Volume 7.4; Monocytes # (A) 0.6 k/uL (0-1.0); Monocytes % (A) 5 %; Neutrophils # (A) 10.1 k/uL (1.3-7.7); Neutrophils % (A) 77 %; Platelet Count 266 k/uL (150-450); RBC 4.16 m/uL (3.80-5.40); WBC 13.1 k/uL (4.0-11.0)
[2017-11-28 16:12] LABS: Appearance,Urine Cloudy (Clear); Bacteria,Urine Rare /hpf; Bilirubin,Urine Negative (Negative); Blood,Urine Negative (Negative); Color,Urine Yellow; Glucose,Urine (UA) Negative (Negative); Ketones,Urine Negative (Negative); Leukocyte Esterase,Urine Negative (Negative); Mucus,Urine Rare /hpf; Nitrite,Urine Negative (Negative); Protein,Urine Negative (Negative); RBC,Urine <1 /hpf (0-5); Specific Gravity,Urine 1.019 (1.001-1.035); Squamous Epithelial Cell,Urine 8 /hpf (0-4); Urobilinogen,Urine <2.0 mg/dL (<2.0); WBC,Urine 2 /hpf (0-5)
[2017-11-28 16:26] LABS: ALT 15 U/L (9-52); AST 23 U/L (14-36); Albumin 3.6 g/dL (3.5-5.0); Alkaline Phosphatase 60 U/L (38-126); Anion Gap 10 mmol/L; Blood Urea Nitrogen 10 mg/dL (7-17); Carbon Dioxide 23 mmol/L (22-30); Chloride 106 mmol/L (98-107); Glucose 63 mg/dL (74-99); Magnesium 1.8 mg/dL (1.6-2.3); Potassium 4.1 mmol/L (3.5-5.1); Sodium 139 mmol/L (137-145); Total Bilirubin 0.3 mg/dL (0.2-1.3); Total Protein 6.2 g/dL (6.3-8.2)
--- NOTE | 2017-11-28 16:33 | ED ---
Syncope HPI - General Chief Complaint: Syncope Stated Complaint: Syncope Time Seen by Provider: 11/28/17 15:48 Source: patient, EMS, RN notes reviewed Mode of arrival: EMS Limitations: no limitations - History of Present Illness Initial Comments: 22-year-old female presents emergency Department chief complaint syncopal episode. Patient was at work at a witnessed syncopal episode. Patient states right before she became hot flash felt very dizzy and lightheaded. Patient states that she's had this happen several times in the past. She's had extensive workup with multiple specialists who told her that it was due to her anxiety and low sodium. Patient states that she feels really normal at this time she is not concerned she does not want to be here at this time. 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 States that she feels baby moving denies any vaginal bleeding or vaginal discharge. Denies chest pain or shortness of breath. - Related Data Home Medications Medication Instructions Recorded Confirmed Acetaminophen [Tylenol Extra 1,000 mg PO BID PRN 11/06/17 11/28/17 Strength] Pnv No.95/Ferrous Fum/Folic AC 1 tab PO DAILY 11/06/17 11/28/17 [ Multivitamin Tablet] Docusate [Colace] 100 mg PO BID PRN 11/28/17 11/28/17 Allergies Allergy/AdvReac Type Severity Reaction Status Date / Time No Known Allergies Allergy Verified 11/28/17 15:24 Review of Systems ROS Statement: Those systems with pertinent positive or pertinent negative responses have been documented in the HPI. ROS Other: All systems not noted in ROS Statement are negative. Past Medical History Past Medical History: No Reported History Additional Past Medical History / Comment(s): syncope, low sodium History of Any Multi-Drug Resistant Organisms: None Reported Past Surgical History: Adenoidectomy, Tonsillectomy Past Psychological History: Anxiety, Depression Smoking Status: Never smoker Past Alcohol Use History: None Reported Past Drug Use History: None Reported General Exam Limitations: no limitations General appearance: alert, in no apparent distress Head exam: Present: atraumatic, normocephalic, normal inspection Eye exam: Present: normal appearance, PERRL, EOMI. Absent: scleral icterus, conjunctival injection, periorbital swelling ENT exam: Present: normal exam, normal oropharynx, mucous membranes moist Neck exam: Present: normal inspection, full ROM. Absent: tenderness, meningismus, lymphadenopathy Respiratory exam: Present: normal lung sounds bilaterally. Absent: respiratory distress, wheezes, rales, rhonchi, stridor Cardiovascular Exam: Present: regular rate, normal rhythm, normal heart sounds. Absent: systolic murmur, diastolic murmur, rubs, gallop, clicks GI/Abdominal exam: Present: soft, normal bowel sounds. Absent: distended, tenderness, guarding, rebound, rigid Neurological exam: Present: alert, oriented X3, CN II-XII intact, reflexes normal. Absent: motor sensory deficit Skin exam: Present: warm, dry, intact, normal color. Absent: rash Course Vital Signs 11/28/17 15:23 Temperature 97.8 F Pulse Rate 97 Respiratory 18 Rate Blood Pressure 111/61 O2 Sat by Pulse 98 Oximetry EKG Findings - EKG Comments: EKG Findings:: EKG performed at 16:50 normal sinus rhythm with rate of 85. PA interval 152 QRS 98 QT/QTC 382/454 Medical Decision Making - Medical Decision Making 22-year-old female presented emergency department for staple episode. Patient had episodes like this in the past has been extensively worked up. Patient is found to be hyperglycemic ccurrently at 63. Patient is improved after eating and drinking. Patient will be discharged with close follow-up return parameters were discussed. - Lab Data Result diagrams: 11/28/17 15:51 11/28/17 15:51 Lab Results 11/28/17 11/28/17 11/28/17 Range/Units 15:51 15:51 15:51 WBC 13.1 H (4.0-11.0) k/uL RBC 4.16 (3.80-5.40) m/uL Hgb 12.6 (11.4-16.0) gm/dL Hct 37.7 (34.0-46.0) % MCV 90.6 (80.0-100.0) fL MCH 30.4 (25.0-35.0) pg MCHC 33.6 (31.0-37.0) g/dL RDW 13.0 (11.5-15.5) % Plt Count 266 (150-450) k/uL Neutrophils % 77 % Lymphocytes % 16 % Monocytes % 5 % Eosinophils % 1 % Basophils % 0 % Neutrophils # 10.1 H (1.3-7.7) k/uL Lymphocytes # 2.1 (1.0-4.8) k/uL Monocytes # 0.6 (0-1.0) k/uL Eosinophils # 0.1 (0-0.7) k/uL Basophils # 0.0 (0-0.2) k/uL Sodium 139 (137-145) mmol/L Potassium 4.1 (3.5-5.1) mmol/L Chloride 106 (98-107) mmol/L Carbon Dioxide 23 (22-30) mmol/L Anion Gap 10 mmol/L BUN 10 (7-17) mg/dL Creatinine 0.40 L (0.52-1.04) mg/dL Est GFR (CKD-EPI)AfAm >90 (>60 ml/min/1.73 sqM) Est GFR (CKD-EPI)NonAf >90 (>60 ml/min/1.73 sqM) Glucose 63 L (74-99) mg/dL Calcium 9.0 (8.4-10.2) mg/dL Magnesium 1.8 (1.6-2.3) mg/dL Total Bilirubin 0.3 (0.2-1.3) mg/dL AST 23 (14-36) U/L ALT 15 (9-52) U/L Alkaline Phosphatase 60 (38-126) U/L Troponin I <0.012 (0.000-0.034) ng/mL Total Protein 6.2 L (6.3-8.2) g/dL Albumin 3.6 (3.5-5.0) g/dL Urine Color Urine Appearance (Clear) Urine pH (5.0-8.0) Ur Specific [place] (1.001-1.035) Urine Protein (Negative) Urine Glucose (UA) (Negative) Urine Ketones (Negative) Urine Blood (Negative) Urine Nitrite (Negative) Urine Bilirubin (Negative) Urine Urobilinogen (<2.0) mg/dL Ur Leukocyte Esterase (Negative) Urine RBC (0-5) /hpf Urine WBC (0-5) /hpf Ur Squamous Epith Cells (0-4) /hpf Urine Bacteria (None) /hpf Urine Mucus (None) /hpf 11/28/17 Range/Units 15:51 WBC (4.0-11.0) k/uL RBC (3.80-5.40) m/uL Hgb (11.4-16.0) gm/dL Hct (34.0-46.0) % MCV (80.0-100.0) fL MCH (25.0-35.0) pg MCHC (31.0-37.0) g/dL RDW (11.5-15.5) % Plt Count (150-450) k/uL Neutrophils % % Lymphocytes % % Monocytes % % Eosinophils % % Basophils % % Neutrophils # (1.3-7.7) k/uL Lymphocytes # (1.0-4.8) k/uL Monocytes # (0-1.0) k/uL Eosinophils # (0-0.7) k/uL Basophils # (0-0.2) k/uL Sodium (137-145) mmol/L Potassium (3.5-5.1) mmol/L Chloride (98-107) mmol/L Carbon Dioxide (22-30) mmol/L Anion Gap mmol/L BUN (7-17) mg/dL Creatinine (0.52-1.04) mg/dL Est GFR (CKD-EPI)AfAm (>60 ml/min/1.73 sqM) Est GFR (CKD-EPI)NonAf (>60 ml/min/1.73 sqM) Glucose (74-99) mg/dL Calcium (8.4-10.2) mg/dL Magnesium (1.6-2.3) mg/dL Total Bilirubin (0.2-1.3) mg/dL AST (14-36) U/L ALT (9-52) U/L Alkaline Phosphatase (38-126) U/L Troponin I (0.000-0.034) ng/mL Total Protein (6.3-8.2) g/dL Albumin (3.5-5.0) g/dL Urine Color Yellow Urine Appearance Cloudy H (Clear) Urine pH 7.0 (5.0-8.0) Ur Specific [place] 1.019 (1.001-1.035) Urine Protein Negative (Negative) Urine Glucose (UA) Negative (Negative) Urine Ketones Negative (Negative) Urine Blood Negative (Negative) Urine Nitrite Negative (Negative) Urine Bilirubin Negative (Negative) Urine Urobilinogen <2.0 (<2.0) mg/dL Ur Leukocyte Esterase Negative (Negative) Urine RBC <1 (0-5) /hpf Urine WBC 2 (0-5) /hpf Ur Squamous Epith Cells 8 H (0-4) /hpf Urine Bacteria Rare H (None) /hpf Urine Mucus Rare H (None) /hpf Disposition Clinical Impression: Syncope, , Hypoglycemia Disposition: HOME SELF-CARE Condition: Stable Instructions: Non-diabetic Hypoglycemia (ED) Additional Instructions: Please return to the Emergency Department if symptoms worsen or any other concerns. Referrals: Lynn Clemens MD [Primary Care Provider] - 1-2 days Time of Disposition: 16:56
[2017-11-28 17:43] VITALS: BP 120/67; PULSE 95; RESP 16; TEMP 98.3
== END 2017-11-28 17:57 | disposition home or self-care (01) ==
LOC: EC 15:15
DX: O99.282 Endocrine, nutritional and metabolic diseases complicating pregnancy, second trimester (principal); E16.2 Hypoglycemia, unspecified; O99.89 Other specified diseases and conditions complicating pregnancy, childbirth and the puerperium; R55 Syncope and collapse; Z3A.22 22 weeks gestation of pregnancy
CPT/HCPCS: 36415; 80053; 81001; 83735; 84484; 85025; 93005; 96360; 99285

== ENCOUNTER 2017-12-14 16:42 | Outpatient (CLI) | payer BC, OTHER ==
[2017-12-14 17:15] LABS: Glucose,Whole Blood 96 mg/dL (75-99)
[2017-12-14] MEDS ORDERED: LACTATED RINGERS 1,000 ML IV SCH (17:29)
[2017-12-14 17:34] LABS: Appearance,Urine Clear (Clear); Bilirubin,Urine Negative (Negative); Blood,Urine Negative (Negative); Color,Urine Yellow; Glucose,Urine (UA) Negative (Negative); Ketones,Urine Negative (Negative); Leukocyte Esterase,Urine Negative (Negative); Nitrite,Urine Negative (Negative); PH, Urine 5.5 (5.0-8.0); Protein,Urine Negative (Negative); Urobilinogen,Urine <2.0 mg/dL (<2.0)
[2017-12-14] MEDS ORDERED: LACTATED RINGERS 1,000 ML IV ONE (18:45)
[2017-12-14 19:27] VITALS: BP 116/61; PULSE 82; RESP 18; TEMP 98.3
--- NOTE | 2017-12-15 07:38 | P.MSEPDOC ---
Presenting Problems - Arrival Data Date of Arrival on Unit: 12/14/17 Time of Arrival on Unit: 16:42 Mode of Transport: Ambulatory - Complaint OB-Reason for Admission/Chief Complaint: Dizziness Medical History - Information : 1 Para: 0 Term: 0 : 0 Abortions: Spontaneous or Elective: 0 Number of Living Children: 0 - Gestational Age Gestational Age by NEHEMIAH (wks/days): 24 Weeks and 1 Days Review of Systems - Review of Systems Constitutional: No problems Breast: No problems ENT: No problems Cardiovascular: No problems Respiratory: No problems Gastrointestinal: No problems Genitourinary: No problems Musculoskeletal: No problems Neurological: No problems Skin: No problems Comment: tonsils and adnoids when a child Vital Signs - Temperature Temperature: 98.3 F Temperature Source: Temporal Artery Scan - Pulse Right Pulse Rate: 82 Pulse Assessment Method: Auscultation - Respirations Respiratory Rate: 18 Oxygen Delivery Method: Room Air - Blood Pressure Right Arm Blood Pressure: 116/61 Blood Pressure Mean: 79 Blood Pressure Source: Automatic Cuff Medical Screen Scoring (Pre) - Cervical Exam Dilation: 0 cm = 0 Membranes: Intact - Uterine Contractions Frequency: N/A Duration: N/A Intensity: N/A - Maternal Vital Signs Maternal Temperature: N/A Maternal Blood Pressure: N/A Signs of Preeclampsia: N/A Maternal Respirations: N/A - Pain Assessment Pain Scale Used: Numeric (1 - 10) Pain Intensity: 0 - Maternal Trauma Maternal Trauma: N/A - Assessment Baseline FHR: 140 Heart Rate - NICHD Category: Category I (Normal) = 0 - Total Score Total Score (Pre): 0 - Level of Risk Level of Risk: Low (0-5) Physician Notification (Pre) - Physician Notified Physician Notified Date: 12/14/17 Physician Notified Time: 18:25 Physician/Practitioner Notifed:: dr elliott New Order Received: Yes - Notification Comment Comment: May discharge home to follow up with dr sousa. No longer govind after hydration Disposition - Disposition OB Disposition: Observe, Triage, Discharge to home, Written follow up instructions reviewed Discharge Date: 12/14/17 Discharge Time: 18:40 I agree with the RN Medical Screening Exam: Yes Risk & Benefit of care provided described in d/c instruction: Yes Diagnosis: DIZZINESS AND GIDDINESS
== END 2017-12-14 18:40 | disposition home or self-care (01) ==
LOC: FBPOP 16:42
PROVIDERS: ATTEND Obstetrics & Gynecology
DX: O26.892 Other specified pregnancy related conditions, second trimester (principal); R42 Dizziness and giddiness; Z3A.24 24 weeks gestation of pregnancy
CPT/HCPCS: 81003; 96360; 99214

== ENCOUNTER 2017-12-16 22:50 | Outpatient (CLI) | payer BC, OTHER ==
[2017-12-17 00:51] VITALS: BP 118/59; PULSE 83; RESP 16; TEMP 97.8
--- NOTE | 2017-12-29 08:00 | P.MSEPDOC ---
Presenting Problems - Arrival Data Date of Arrival on Unit: 12/16/17 Time of Arrival on Unit: 22:50 Mode of Transport: Ambulatory - Complaint OB-Reason for Admission/Chief Complaint: Pain Comment: 6 min lower abdominal pain since resolved Medical History - Information : 1 Para: 0 Term: 0 : 0 Abortions: Spontaneous or Elective: 0 Number of Living Children: 0 - Gestational Age Gestational Age by NEHEMIAH (wks/days): 24 Weeks and 4 Days Review of Systems - Review of Systems Constitutional: No problems Breast: No problems ENT: No problems Cardiovascular: No problems Respiratory: No problems Gastrointestinal: No problems Genitourinary: No problems Musculoskeletal: No problems Neurological: No problems Skin: No problems Vital Signs - Temperature Temperature: 97.8 F Temperature Source: Temporal Artery Scan - Pulse Right Brachial Pulse Rate: 83 Pulse Assessment Method: Automatic Cuff - Respirations Respiratory Rate: 16 Oxygen Delivery Method: Room Air O2 Sat by Pulse Oximetry: 99 - Blood Pressure Right Arm Blood Pressure: 118/59 Blood Pressure Mean: 78 Blood Pressure Source: Automatic Cuff Medical Screen Scoring (Pre) - Cervical Exam Dilation: Exam Deferred Effacement: Exam Deferred Membranes: Intact - Uterine Contractions Frequency: > 5 minutes apart = 1 Duration: N/A Intensity: N/A - Maternal Vital Signs Maternal Temperature: N/A Maternal Blood Pressure: N/A Signs of Preeclampsia: N/A Maternal Respirations: N/A - Total Score Total Score (Pre): 1 - Level of Risk Level of Risk: Low (0-5) Physician Notification (Pre) - Physician Notified Physician Notified Date: 12/16/17 Physician Notified Time: 23:45 Spoke With: Marion Cole Order Received: Yes - Notification Comment Comment: discharge with instruction to follow up with Porsha and seek care at [facility] if non emergent Disposition - Disposition OB Disposition: Discharge to home, Written follow up instructions reviewed Discharge Date: 12/16/17 Discharge Time: 23:50 I agree with the RN Medical Screening Exam: Yes Risk & Benefit of care provided described in d/c instruction: Yes Diagnosis: RELATED CONDITIONS, UNSPECIFIED, SECOND TRIMESTER ( abdominal pain)
== END 2017-12-16 23:50 | disposition home or self-care (01) ==
LOC: FBPOP 22:50
PROVIDERS: ATTEND Obstetrics & Gynecology
DX: O26.92 Pregnancy related conditions, unspecified, second trimester (principal); Z3A.24 24 weeks gestation of pregnancy
CPT/HCPCS: 99213

== ENCOUNTER 2017-12-20 17:00 | Emergency (ER) | payer BC, OTHER ==
[2017-12-20 17:16] VITALS: RESP 18; TEMP 98.5
[2017-12-20] MEDS ORDERED: SODIUM CHLORIDE 0.9% 1,000 ML IV STA (17:29)
--- NOTE | 2017-12-20 17:35 | ED ---
General Adult HPI - General Chief complaint: Syncope Stated complaint: syncope Time Seen by Provider: 12/20/17 17:17 Source: patient, family, RN notes reviewed, old records reviewed Mode of arrival: ambulatory Limitations: no limitations - History of Present Illness Initial comments: This is a 22-year-old female, currently 25 weeks , who presents to the emergency department with chief complaint of syncope. Patient states that she has been evaluated for her syncopal episodes and is supposed to be following up with a kalsominer, although she is unsure why. Patient states that she has called Dr. Guthrie's office multiple times but has not yet heard back. She states that she has passed out 8 times since she was 12 weeks . All episodes of syncope have occurred at work. Patient states that today she passed out at approximately 3:40 in the afternoon. She states she feels hot, dizzy and has a headache before passing out. She was told that she is unconsciousness for a couple minutes each time. 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 Story are both aware of these syncopal episodes. Denies fever, chills, chest pain, shortness of breath, abdominal pain , nausea or vomiting, constipation or diarrhea, dysuria or hematuria, numbness or tingling, or vision changes. - Related Data Home Medications Medication Instructions Recorded Confirmed Acetaminophen Tab [Tylenol Tab] 500 - 1,000 mg PO Q6HR PRN 12/20/17 12/20/17 Docusate [Colace] 100 mg PO DAILY PRN 12/20/17 12/20/17 Hog-Funw-Huyxq Acid 1 cap PO DAILY 12/20/17 12/20/17 [-U Capsule (formulary)] Allergies Allergy/AdvReac Type Severity Reaction Status Date / Time No Known Allergies Allergy Verified 12/20/17 17:19 Review of Systems ROS Statement: Those systems with pertinent positive or pertinent negative responses have been documented in the HPI. ROS Other: All systems not noted in ROS Statement are negative. Past Medical History Past Medical History: No Reported History Additional Past Medical History / Comment(s): syncope, low sodium History of Any Multi-Drug Resistant Organisms: None Reported Past Surgical History: Adenoidectomy, Tonsillectomy Past Psychological History: Anxiety, Depression Smoking Status: Never smoker Past Alcohol Use History: None Reported Past Drug Use History: None Reported General Exam - General Exam Comments Initial Comments: General: Awake and alert, well-developed; in no apparent distress. HEENT: Head atraumatic, normocephalic. Pupils are equal, round and reactive to light. Extraocular movements intact. Oropharynx moist without erythema or exudate. Neck: Supple. Normal ROM. Cardiovascular: Regular rate and rhythm. No murmurs, rubs or gallops. Chest symmetrical. Respiratory: Lungs clear to auscultation bilaterally. No wheezes, rales or rhonchi. Normal respiratory effort with no use of accessory muscles. Abdomen: Soft, non-tender, non-distended. No rigidity, rebound or guarding. Musculoskeletal: Normal ROM, no tenderness bilateral upper and lower extremities. Ambulating normally. Skin: [place], warm and dry without rashes or lesions. Neurological: Alert and oriented x3. CN II-XII grossly intact. Speech is fluent and answers are appropriate. No focal neuro deficits. Psychiatric: Normal mood and affect. No overt signs of depression or anxiety noted. Limitations: no limitations Course Vital Signs 12/20/17 12/20/17 17:13 18:17 Temperature 98.5 F Pulse Rate 76 Pulse Rate [ 78 Bilateral Cleaner And Presser ] Respiratory 18 Rate Blood Pressure 116/67 O2 Sat by Pulse 98 Oximetry EKG Findings - EKG Comments: EKG Findings:: 17:57:51. Normal sinus rhythm. Ventricular rate 88 bpm, AL interval 132, QRS duration 98, QT/QTC 364/440 Medical Decision Making - Medical Decision Making This is a 22-year-old female, currently 25 weeks , who presents to the emergency department with chief complaint of syncope. Patient has been evaluated here in the emergency department as well as by her primary care provider and Dr. Story for these syncopal episodes. Patient presents again today because she had an another syncopal episode while at work. Patient states that she has only had these episodes while working. She states that she believes it is related to her anxiety. CBC, CMP, UA were unremarkable. EKG revealed normal sinus rhythm. Troponin was negative. Patient's mother is at bedside. She states that while in the emergency department she was in contact with Dr. Story's office. Follow-up was discussed and patient was given excusal from work through Saturday. Dr. Story's office did recommend a cardiology consult. Patient will be provided with contact information for the on-call kalsominer. Patient's vital signs have been stable and she is in no acute distress. She will be discharged home at this time. She is in agreement with plan and voices understanding. All questions were answered. - Lab Data Result diagrams: 12/20/17 17:39 12/20/17 17:39 Lab Results 12/20/17 12/20/17 12/20/17 Range/Units 17:31 17:39 17:39 WBC 12.9 H (4.0-11.0) k/uL RBC 3.96 (3.80-5.40) m/uL Hgb 12.3 (11.4-16.0) gm/dL Hct 35.9 (34.0-46.0) % MCV 90.7 (80.0-100.0) fL MCH 31.1 (25.0-35.0) pg MCHC 34.4 (31.0-37.0) g/dL RDW 12.9 (11.5-15.5) % Plt Count 261 (150-450) k/uL Neutrophils % 77 % Lymphocytes % 15 % Monocytes % 6 % Eosinophils % 1 % Basophils % 0 % Neutrophils # 9.9 H (1.3-7.7) k/uL Lymphocytes # 2.0 (1.0-4.8) k/uL Monocytes # 0.7 (0-1.0) k/uL Eosinophils # 0.1 (0-0.7) k/uL Basophils # 0.0 (0-0.2) k/uL PT (9.0-12.0) sec INR (<1.2) APTT (22.0-30.0) sec Sodium 139 (137-145) mmol/L Potassium 4.2 (3.5-5.1) mmol/L Chloride 105 (98-107) mmol/L Carbon Dioxide 22 (22-30) mmol/L Anion Gap 12 mmol/L BUN 10 (7-17) mg/dL Creatinine 0.42 L (0.52-1.04) mg/dL Est GFR (CKD-EPI)AfAm >90 (>60 ml/min/1.73 sqM) Est GFR (CKD-EPI)NonAf >90 (>60 ml/min/1.73 sqM) Glucose 78 (74-99) mg/dL POC Glucose (mg/dL) 85 (75-99) mg/dL POC Glu Lifts And Cranes Inspector ID Carlos Alberto Irby Calcium 9.5 (8.4-10.2) mg/dL Total Bilirubin 0.3 (0.2-1.3) mg/dL AST 24 (14-36) U/L ALT 31 (9-52) U/L Alkaline Phosphatase 73 (38-126) U/L Troponin I (0.000-0.034) ng/mL Total Protein 6.4 (6.3-8.2) g/dL Albumin 3.9 (3.5-5.0) g/dL Amylase 82 (30-110) U/L Lipase 100 (23-300) U/L Urine Color Urine Appearance (Clear) Urine pH (5.0-8.0) Ur Specific [place] (1.001-1.035) Urine Protein (Negative) Urine Glucose (UA) (Negative) Urine Ketones (Negative) Urine Blood (Negative) Urine Nitrite (Negative) Urine Bilirubin (Negative) Urine Urobilinogen (<2.0) mg/dL Ur Leukocyte Esterase (Negative) 12/20/17 12/20/17 12/20/17 Range/Units 17:39 17:39 17:39 WBC (4.0-11.0) k/uL RBC (3.80-5.40) m/uL Hgb (11.4-16.0) gm/dL Hct (34.0-46.0) % MCV (80.0-100.0) fL MCH (25.0-35.0) pg MCHC (31.0-37.0) g/dL RDW (11.5-15.5) % Plt Count (150-450) k/uL Neutrophils % % Lymphocytes % % Monocytes % % Eosinophils % % Basophils % % Neutrophils # (1.3-7.7) k/uL Lymphocytes # (1.0-4.8) k/uL Monocytes # (0-1.0) k/uL Eosinophils # (0-0.7) k/uL Basophils # (0-0.2) k/uL PT 9.5 (9.0-12.0) sec INR 0.9 (<1.2) APTT 24.1 (22.0-30.0) sec Sodium (137-145) mmol/L Potassium (3.5-5.1) mmol/L Chloride (98-107) mmol/L Carbon Dioxide (22-30) mmol/L Anion Gap mmol/L BUN (7-17) mg/dL Creatinine (0.52-1.04) mg/dL Est GFR (CKD-EPI)AfAm (>60 ml/min/1.73 sqM) Est GFR (CKD-EPI)NonAf (>60 ml/min/1.73 sqM) Glucose (74-99) mg/dL POC Glucose (mg/dL) (75-99) mg/dL POC Glu Lifts And Cranes Inspector ID Calcium (8.4-10.2) mg/dL Total Bilirubin (0.2-1.3) mg/dL AST (14-36) U/L ALT (9-52) U/L Alkaline Phosphatase (38-126) U/L Troponin I <0.012 (0.000-0.034) ng/mL Total Protein (6.3-8.2) g/dL Albumin (3.5-5.0) g/dL Amylase (30-110) U/L Lipase (23-300) U/L Urine Color Light Yellow Urine Appearance Clear (Clear) Urine pH 5.5 (5.0-8.0) Ur Specific [place] 1.008 (1.001-1.035) Urine Protein Negative (Negative) Urine Glucose (UA) Negative (Negative) Urine Ketones Negative (Negative) Urine Blood Negative (Negative) Urine Nitrite Negative (Negative) Urine Bilirubin Negative (Negative) Urine Urobilinogen <2.0 (<2.0) mg/dL Ur Leukocyte Esterase Negative (Negative) Disposition Clinical Impression: Syncope Disposition: HOME SELF-CARE Condition: Good Instructions: Syncope (ED) Additional Instructions: Please follow-up with Dr. Story's office as scheduled. Please follow up with cardiology as was discussed. Please follow up with primary care provider within 1-2 days. Return to emergency department if symptoms should worsen or any concerns arise. Is patient prescribed a controlled substance at d/c from ED?: No Referrals: Lynn Clemens MD [Primary Care Provider] - 1-2 days Jose Francisco Gilliland MD [STAFF PHYSICIAN] - 1-2 days Time of Disposition: 18:47
[2017-12-20 17:39] LABS: Glucose,Whole Blood 85 mg/dL (75-99)
[2017-12-20 17:56] LABS: Basophils % (A) 0 %; Eosinophils # (A) 0.1 k/uL (0-0.7); Eosinophils % (A) 1 %; HCT 35.9 % (34.0-46.0); HGB 12.3 gm/dL (11.4-16.0); Lymphocytes % (A) 15 %; MCH 31.1 pg (25.0-35.0); MCHC 34.4 g/dL (31.0-37.0); MCV 90.7 fL (80.0-100.0); Mean Platelet Volume 7.6; Monocytes # (A) 0.7 k/uL (0-1.0); Monocytes % (A) 6 %; Neutrophils # (A) 9.9 k/uL (1.3-7.7); Neutrophils % (A) 77 %; Platelet Count 261 k/uL (150-450); RBC 3.96 m/uL (3.80-5.40); RDW 12.9 % (11.5-15.5); WBC 12.9 k/uL (4.0-11.0)
[2017-12-20 18:00] LABS: Appearance,Urine Clear (Clear); Bilirubin,Urine Negative (Negative); Blood,Urine Negative (Negative); Color,Urine Light Yellow; Glucose,Urine (UA) Negative (Negative); Ketones,Urine Negative (Negative); Leukocyte Esterase,Urine Negative (Negative); Nitrite,Urine Negative (Negative); PH, Urine 5.5 (5.0-8.0); Protein,Urine Negative (Negative); Specific Gravity,Urine 1.008 (1.001-1.035); Urobilinogen,Urine <2.0 mg/dL (<2.0)
[2017-12-20 18:04] LABS: INR 0.9 (<1.2); Partial Thromboplastin Time 24.1 sec (22.0-30.0); Prothrombin Time 9.5 sec (9.0-12.0)
[2017-12-20 18:05] LABS: ALT 31 U/L (9-52); AST 24 U/L (14-36); Albumin 3.9 g/dL (3.5-5.0); Alkaline Phosphatase 73 U/L (38-126); Amylase 82 U/L (30-110); Anion Gap 12 mmol/L; Blood Urea Nitrogen 10 mg/dL (7-17); Calcium 9.5 mg/dL (8.4-10.2); Carbon Dioxide 22 mmol/L (22-30); Chloride 105 mmol/L (98-107); Glucose 78 mg/dL (74-99); Lipase 100 U/L (23-300); Potassium 4.2 mmol/L (3.5-5.1); Sodium 139 mmol/L (137-145); Total Bilirubin 0.3 mg/dL (0.2-1.3); Total Protein 6.4 g/dL (6.3-8.2)
[2017-12-20 19:13] VITALS: BP 110/59; PULSE 84
== END 2017-12-20 19:13 | disposition home or self-care (01) ==
LOC: EC 17:00
DX: O99.89 Other specified diseases and conditions complicating pregnancy, childbirth and the puerperium (principal); R55 Syncope and collapse; R42 Dizziness and giddiness; R51 Headache; Z3A.25 25 weeks gestation of pregnancy
CPT/HCPCS: 36415; 80053; 81003; 82150; 83690; 84484; 85025; 85610; 85730; 93005; 96360; 99284

== ENCOUNTER → 2017-12-31 | Outpatient (CLI) | payer BC, OTHER ==
[2017-12-31 15:20] LABS: T4, Free (Free Thyroxine) 0.64 ng/dL (0.78-2.19)
== END | disposition home or self-care (01) ==
LOC: LABWHC1 13:54
PROVIDERS: ATTEND Internal Medicine Interventional Cardiology
DX: E05.90 Thyrotoxicosis, unspecified without thyrotoxic crisis or storm (principal); R00.2 Palpitations
CPT/HCPCS: 36415; 84439; 84443

== ENCOUNTER 2018-02-14 13:38 | Outpatient (CLI) | payer BC, OTHER ==
[2018-02-14] MEDS ORDERED: valACYclovir 500 MG TAB PO STA (14:25)
[2018-02-14] MEDS ORDERED: LACTATED RINGERS 1,000 ML IV ONE (14:45)
[2018-02-14] MEDS: TERBUTALINE 1 MG/ML VIAL SQ PRN ×2 (14:57→15:13)
[2018-02-14 16:23] VITALS: BP 113/68; PULSE 92; RESP 16; TEMP 97.2
== END 2018-02-14 15:45 | disposition home or self-care (01) ==
LOC: FBPOP 13:38
PROVIDERS: ATTEND Obstetrics & Gynecology Obstetrics
DX: O47.03 False labor before 37 completed weeks of gestation, third trimester (principal); Z3A.33 33 weeks gestation of pregnancy
CPT/HCPCS: 59025; 99214; 96360; 96365; 96372; 84112; 82731; J3105

== ENCOUNTER 2018-02-15 13:15 | Outpatient (CLI) | payer BC, OTHER ==
[2018-02-15 14:09] LABS: Appearance,Urine Cloudy (Clear); Bacteria,Urine Moderate /hpf; Bilirubin,Urine Negative (Negative); Blood,Urine Negative (Negative); Color,Urine Yellow; Glucose,Urine (UA) Negative (Negative); Ketones,Urine Negative (Negative); Leukocyte Esterase,Urine Large (Negative); Mucus,Urine Occasional /hpf; Nitrite,Urine Negative (Negative); PH, Urine 6.5 (5.0-8.0); Protein,Urine Trace (Negative); Specific Gravity,Urine 1.015 (1.001-1.035); Squamous Epithelial Cell,Urine 19 /hpf (0-4); Urobilinogen,Urine <2.0 mg/dL (<2.0); WBC,Urine 13 /hpf (0-5)
[2018-02-15 14:31] VITALS: BP 122/71; PULSE 109; RESP 16; TEMP 97.2
--- NOTE | 2018-02-15 16:39 | US ---
EXAMINATION TYPE: US OB TV Cervical Measurement DATE OF EXAM: 02/15/2018 COMPARISON: None HISTORY: 22-year-old female with contractions REASON FOR EXAM: Per Ordering Physician?this transvaginal scan is to assess the CERVICAL LENGTH for i ncompetence or funneling. GESTATIONAL AGE / DATING Physician Established: (33 weeks/1 days) EDC: 04/04/2018 MATERNAL/ SURVEY CERVICAL LENGTH (transvaginal: norm> 2.5cm): 3.1 cm Ultrasound evidence of shortened cervix? no Ultrasound evidence of funneling? no HEART RATE: 126 bpm RHYTHM: Normal Multiple images of cervix taken. IMPRESSION: No ultrasound evidence for cervical shortening or any significant funneling at this time.
--- NOTE | 2018-02-17 09:57 | P.MSEPDOC ---
Presenting Problems - Arrival Data Date of Arrival on Unit: 02/15/18 Time of Arrival on Unit: 13:15 Mode of Transport: Portable - Complaint OB-Reason for Admission/Chief Complaint: Observation/Evaluation Medical History - Information : 1 Para: 0 Term: 0 : 0 Abortions: Spontaneous or Elective: 0 Number of Living Children: 0 - Gestational Age Gestational Age by NEHEMIAH (wks/days): 33 Weeks and 1 Days - History Comment: herpes Review of Systems - Review of Systems Constitutional: No problems Breast: No problems ENT: No problems Cardiovascular: No problems Respiratory: No problems Gastrointestinal: No problems Genitourinary: No problems Musculoskeletal: No problems Neurological: No problems Skin: No problems Vital Signs - Temperature Temperature: 97.2 F Temperature Source: Temporal Artery Scan - Pulse Right Sitting Pulse Rate: 109 Pulse Assessment Method: Automatic Cuff - Respirations Respiratory Rate: 16 Oxygen Delivery Method: Room Air - Blood Pressure Right Arm Blood Pressure: 122/71 Blood Pressure Mean: 88 Blood Pressure Source: Automatic Cuff Medical Screen Scoring (Pre) - Uterine Contractions Frequency: > 5 minutes apart = 1 Duration: > 40 seconds = 2 - Maternal Vital Signs Maternal Temperature: N/A Maternal Blood Pressure: N/A Signs of Preeclampsia: N/A Maternal Respirations: N/A - Pain Assessment Pain Location and Character: Back Pain Scale Used: Numeric (1 - 10) Pain Intensity: 7 Pain Management Goal: 7 Pain Description: *Chronic Pain Frequency: Intermittent Pain Duration Units: Months Pain Behavior: None Exhibited - Maternal Trauma Maternal Trauma: N/A - Assessment Baseline FHR: 135 Heart Rate - NICHD Category: Category I (Normal) = 0 NST: Reactive Position: N/A Station: N/A - Total Score Total Score (Pre): 3 - Level of Risk Level of Risk: Low (0-5) Physician Notification (Pre) - Physician Notified Physician Notified Date: 02/15/18 Physician Notified Time: 14:14 Physician/Practitioner Notifed:: Carter New Order Received: Yes (check cervix and transvag u/s) Medical Screen Scoring (Post) - Cervical Exam Dilation: 0 cm = 0 Membranes: Intact - Uterine Contractions Frequency: > 5 minutes apart = 1 Duration: > 40 seconds = 2 - Maternal Vital Signs Maternal Temperature: N/A Maternal Blood Pressure: N/A Signs of Preeclampsia: N/A Maternal Respirations: N/A - Pain Assessment Pain Behavior: None Exhibited - Assessment Heart Rate: 135 Heart Rate - NICHD Category: Category I (Normal) = 0 NST: Reactive Position: N/A Station: N/A - Total Score Total Score (Post): 3 - Post Treatment Level of Risk Post Treatment Level of Risk: Low (0-5) Physician Notification (Post) - Physician Notified Physician Notified Date: 02/15/18 Physician Notified Time: 15:38 Physician/Practitioner Notified:: Carter New Order Received: Yes (Discharge home) - Notification Comment Comment: antibiotics called into [facility] for UTI Disposition - Disposition OB Disposition: Discharge to home Discharge Date: 02/15/18 Discharge Time: 15:43 I agree with the RN Medical Screening Exam: Yes Risk & Benefit of care provided described in d/c instruction: Yes Diagnosis: UNSPECIFIED ABNORMAL FINDINGS IN URINE
== END 2018-02-15 15:43 | disposition home or self-care (01) ==
LOC: FBPOP 13:15
PROVIDERS: ATTEND Obstetrics & Gynecology
DX: O99.89 Other specified diseases and conditions complicating pregnancy, childbirth and the puerperium (principal); R82.90 Unspecified abnormal findings in urine; Z3A.33 33 weeks gestation of pregnancy
CPT/HCPCS: 59025; 76817; 81001; 99213

== ENCOUNTER 2018-03-12 14:31 | Outpatient (CLI) | payer BC, OTHER ==
[2018-03-12 15:51] LABS: Appearance,Urine Cloudy (Clear); Bacteria,Urine Rare /hpf; Bilirubin,Urine Negative (Negative); Blood,Urine Negative (Negative); Color,Urine Yellow; Glucose,Urine (UA) Negative (Negative); Ketones,Urine Negative (Negative); Leukocyte Esterase,Urine Trace (Negative); Mucus,Urine Few /hpf; Nitrite,Urine Negative (Negative); Protein,Urine Trace (Negative); RBC,Urine 1 /hpf (0-5); Specific Gravity,Urine 1.016 (1.001-1.035); Squamous Epithelial Cell,Urine 10 /hpf (0-4); Urobilinogen,Urine <2.0 mg/dL (<2.0); WBC,Urine 3 /hpf (0-5)
[2018-03-12 16:41] VITALS: BP 141/82; PULSE 138; RESP 18; TEMP 97.8
--- NOTE | 2018-03-26 19:34 | P.MSEPDOC ---
Presenting Problems - Arrival Data Date of Arrival on Unit: 03/12/18 Time of Arrival on Unit: 14:28 Mode of Transport: Wheelchair - Complaint OB-Reason for Admission/Chief Complaint: Possible Onset of Labor Comment: reports pain for past hour and a half. possible rom, loss of mucus plug Medical History - Information : 1 Para: 0 Term: 0 : 0 Abortions: Spontaneous or Elective: 0 Number of Living Children: 1 - Gestational Age Gestational Age by NEHEMIAH (wks/days): 37 Weeks and 0 Days Review of Systems - Review of Systems Constitutional: No problems Breast: No problems ENT: No problems Cardiovascular: No problems Respiratory: No problems Gastrointestinal: No problems Genitourinary: No problems Musculoskeletal: No problems Neurological: No problems Skin: No problems Vital Signs - Temperature Temperature: 97.8 F Temperature Source: Temporal Artery Scan - Pulse Pulse Oximetery Pulse Rate: 138 Pulse Assessment Method: Pulse Oximetry - Respirations Respiratory Rate: 18 Oxygen Delivery Method: Room Air - Blood Pressure Right Arm Blood Pressure: 141/82 Blood Pressure Mean: 101 Blood Pressure Source: Automatic Cuff Medical Screen Scoring (Pre) - Cervical Exam Dilation: 1-3 cm = 1 Membranes: Intact - Uterine Contractions Frequency: N/A Duration: N/A - Maternal Vital Signs Maternal Temperature: N/A Signs of Preeclampsia: N/A Maternal Respirations: N/A - Pain Assessment Pain Location and Character: Abdomen Pain Scale Used: Numeric (1 - 10) Pain Intensity: 5 Pain Duration: 1 Pain Duration Units: Hours Pain Behavior: None Exhibited - Assessment Baseline FHR: 145 Heart Rate - NICHD Category: Category I (Normal) = 0 NST: Reactive Position: N/A - Total Score Total Score (Pre): 1 - Level of Risk Level of Risk: Low (0-5) Physician Notification (Pre) - Physician Notified Physician Notified Date: 03/12/18 Physician Notified Time: 14:42 Physician/Practitioner Notifed:: dahlia Spoke With: dahlia New Order Received: Yes - Notification Comment Comment: at bedside. orders ua and repeat cervical exam in one hour. pt may be discharged home with no change and ua wnl Disposition - Disposition OB Disposition: Discharge to home Discharge Date: 03/12/18 Discharge Time: 16:29 I agree with the RN Medical Screening Exam: Yes Risk & Benefit of care provided described in d/c instruction: Yes Diagnosis: FALSE LABOR BEFORE 37 COMPLETED WEEKS OF GEST, THIRD TRI
== END 2018-03-12 16:29 | disposition home or self-care (01) ==
LOC: FBPOP 14:31
PROVIDERS: ATTEND Obstetrics & Gynecology Obstetrics
DX: O47.03 False labor before 37 completed weeks of gestation, third trimester (principal); Z3A.37 37 weeks gestation of pregnancy
CPT/HCPCS: 59025; 81001; 99213

== ENCOUNTER 2018-03-21 02:45 | Inpatient (IN) | payer BC, OTHER ==
[2018-03-21] MEDS ORDERED: CARBOPROST TROMETHAMINE 250 MCG/ML 1 ML AMP IM PRN (03:18)
[2018-03-21] MEDS ORDERED: LIDOCAINE 1% (PF) 10 MG/ML (30 ML SDV) SQ PRN (03:18)
[2018-03-21] MEDS ORDERED: OXYTOCIN 10 UNIT/ML 1 ML VIAL IM PRN (03:18)
[2018-03-21] MEDS ORDERED: METHYLERGONOVINE 0.2 MG/ML 1 ML AMP IM PRN (03:18)
[2018-03-21] MEDS ORDERED: TERBUTALINE 1 MG/ML VIAL SQ PRN (03:18)
[2018-03-21] MEDS: LACTATED RINGERS 1,000 ML IV SCH ×3 (04:02→20:59)
[2018-03-21 04:23] LABS: Basophils # (A) 0.1 k/uL (0-0.2); Basophils % (A) 0 %; Eosinophils # (A) 0.1 k/uL (0-0.7); Eosinophils % (A) 0 %; HCT 38.6 % (34.0-46.0); HGB 12.5 gm/dL (11.4-16.0); Lymphocytes # (A) 2.5 k/uL (1.0-4.8); Lymphocytes % (A) 17 %; MCH 30.4 pg (25.0-35.0); MCHC 32.5 g/dL (31.0-37.0); MCV 93.4 fL (80.0-100.0); Mean Platelet Volume 7.4; Monocytes % (A) 7 %; Neutrophils % (A) 73 %; Platelet Count 267 k/uL (150-450); RBC 4.13 m/uL (3.80-5.40); RDW 13.4 % (11.5-15.5); WBC 15.1 k/uL (3.8-10.6)
[2018-03-21] MEDS: BUTORPHANOL 1 MG/ML 1 ML VIAL IV PRN ×2 (05:03→08:50)
[2018-03-21] MEDS ORDERED: OXYTOCIN 20 UNITS/1000 ML NS 1,000 ML IV SCH (06:15)
[2018-03-21] MEDS ORDERED: fentaNYL (PF) 50 MCG/ML 5 ML AMP ONE (11:12)
[2018-03-21] MEDS ORDERED: SODIUM CHLORIDE 0.9% 100 ML BAG ONE (11:12)
[2018-03-21] MEDS ORDERED: ROPIVACAINE 5MG/ML 20ML VIAL ONE (11:12)
--- NOTE | 2018-03-21 15:09 | P.HPOB ---
History of Present Illness H&P Date: 03/21/18 Chief Complaint: IUP at 38-0/7 weeks, spontaneous rupture of membranes This is a 23-year-old 1 para 0 at 38-0/7 weeks with an estimated due date of 2017. Patient presents with complaints of spontaneous rupture of membranes clear in nature. Patient notes occasional contraction, good movement. 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 GBS is negative. Review of Systems Constitutional: Reports fatigue, Denies chills, Denies fever Cardiovascular: Reports leg edema Respiratory: Denies dyspnea Gastrointestinal: Denies constipation, Denies diarrhea Genitourinary: Reports Past Medical History Past Medical History: Asthma Additional Past Medical History / Comment(s): syncope, IBS, tachycardia during History of Any Multi-Drug Resistant Organisms: None Reported Past Surgical History: Adenoidectomy, Tonsillectomy Additional Past Surgical History / Comment(s): childhood Past Anesthesia/Blood Transfusion Reactions: No Reported Reaction Past Psychological History: Anxiety, Depression Smoking Status: Never smoker Past Alcohol Use History: None Reported Past Drug Use History: None Reported - Past Family History Mother Family Medical History: Diabetes Mellitus, Hypertension, Vascular Disorder Additional Family Medical History / Comment(s): crohns, hernia, neuropathy Medications and Allergies Home Medications Medication Instructions Recorded Confirmed Type Crc-Cwnk-Mkcgy Acid 1 cap PO DAILY 12/20/17 03/21/18 History [-U Capsule (formulary)] Acyclovir 500 mg PO DAILY 03/21/18 03/21/18 History Allergies Allergy/AdvReac Type Severity Reaction Status Date / Time No Known Allergies Allergy Verified 03/21/18 02:54 Exam Osteopathic Statement: *. No significant issues noted on an osteopathic structural exam other than those noted in the History and Physical/Consult. Vital Signs Temp Pulse Pulse Resp BP BP Pulse Ox 03/21/18 03:27 97.5 F L 126 H 16 128/80 98 03/21/18 02:56 97.5 F L 126 H 16 128/80 98 Intake and Output 03/21/18 03/21/18 03/21/18 06:59 14:59 22:59 Other: # Voids 2 1 Weight 84.368 kg - OBG Physical Exam Abdomen: Gravid Cervix: 2/80/-2 AROM clear fluid obtained without difficulty. Patient was grossly ruptured on initial exam, but bulging amniotic membrane was noted on exam there for rupture of membranes was performed Uterus: enlarged (Appropriate for gestational age) Results Result Diagrams: 03/21/18 03:52 Abnormal Lab Results - Last 24 Hours (Table) 03/21/18 Range/Units 03:52 WBC 15.1 H (3.8-10.6) k/uL Neutrophils # 11.0 H (1.3-7.7) k/uL Assessment and Plan (1) Term Current Visit: Yes Status: Acute Code(s): Z34.80 - ENCOUNTER FOR SUPRVSN OF NORMAL , UNSP TRIMESTER SNOMED Code(s): 99390918 (2) SROM (spontaneous rupture of membranes) Current Visit: Yes Status: Acute Code(s): TTA2180 - SNOMED Code(s): 737430277 Plan: Admitted to labor and delivery, will await spontaneous labor if she does not start govind regularly we'll start Pitocin augmentation of labor. Anticipate spontaneous vaginal delivery later today. Epidural/Stadol for pain management
--- NOTE | 2018-03-21 15:11 | P.PROBDLV ---
Vaginal Delivery Note - . Vaginal Delivery Note: This is a pleasant 23-year-old 1 para 0 at 38-0/7 weeks that presented to labor and delivery on 727 with complaints of spontaneous rupture of membranes. Patient was admitted to labor and delivery and Pitocin augmentation of labor was begun. On initial physical exam she was 2 cm and a bulging membrane was noted therefore amniotomy was performed with clear fluid. Patient progressed through labor eventually getting an epidural becoming complete and had a normal spontaneous vaginal delivery of a viable male at 1441, weight of 7 pounds 2.1 ounces, Apgars of 8 and 9 at one and 5 minutes or sexually. Patient had a loose nuchal cord at delivery which was delivered through. A spontaneous cry was noted at delivery. The placenta was then removed spontaneously intact with a three-vessel cord. Estimated blood loss approximately 400 mL. A second-degree midline vaginal laceration was noted after delivery and inspection the vaginal vault was performed. This laceration was then repaired with 3-0 Vicryl in the routine fashion. Afterwards the vaginal vault was inspected once again hemostasis was appreciated from the laceration no further lacerations were appreciated. The uterus was firm and below the umbilicus at this time. Mother and infant tolerated delivery well and are resting comfortably.
[2018-03-21 20:55] VITALS: RESP 16
[2018-03-21] MEDS ORDERED: LANOLIN CREAM 5 GM TUBE TOPICAL PRN (22:52)
[2018-03-21] MEDS ORDERED: diphenhydrAMINE 50 MG CAP PO PRN (22:52)
[2018-03-21] MEDS ORDERED: HYDROCORTISONE 2.5% RECTAL CREAM 30 GM TUBE RECTAL PRN (22:52)
[2018-03-21] MEDS ORDERED: SIMETHICONE 80 MG CHEWABLE PO PRN (22:52)
[2018-03-21] MEDS ORDERED: ACETAMINOPHEN TAB 325 MG TAB PO PRN (22:52)
[2018-03-21] MEDS ORDERED: ZOLPIDEM 5 MG TAB PO PRN (22:52)
[2018-03-21] MEDS ORDERED: WITCH HAZEL 1 EACH MED..PAD TOPICAL PRN (22:52)
[2018-03-21] MEDS ORDERED: BENZOCAINE/MENTHOL SPRAY 1 GM/SPRAY AEROSOL TOPICAL PRN (22:52)
[2018-03-21] MEDS ORDERED: diphenhydrAMINE 25 MG CAP PO PRN (22:52)
[2018-03-21] MEDS ORDERED: diphenhydrAMINE 50 MG/ML 1 ML VIAL IVP PRN ×2 (22:52)
[2018-03-21] MEDS ORDERED: IBUPROFEN 600 MG TAB PO PRN (22:52)
[2018-03-22 07:53] LABS: Basophils % (A) 0 %; Eosinophils # (A) 0.1 k/uL (0-0.7); Eosinophils % (A) 0 %; HGB 10.7 gm/dL (11.4-16.0); Lymphocytes # (A) 2.5 k/uL (1.0-4.8); Lymphocytes % (A) 15 %; MCH 30.7 pg (25.0-35.0); MCHC 32.4 g/dL (31.0-37.0); MCV 94.8 fL (80.0-100.0); Mean Platelet Volume 7.6; Monocytes % (A) 6 %; Neutrophils % (A) 77 %; Platelet Count 240 k/uL (150-450); RBC 3.48 m/uL (3.80-5.40); RDW 13.5 % (11.5-15.5); WBC 16.8 k/uL (3.8-10.6)
[2018-03-22] MEDS ORDERED: SENNOSIDES-DOCUSATE SODIUM 1 EACH TAB PO SCH (08:00)
--- NOTE | 2018-03-22 08:54 | P.DS ---
Providers Date of admission: 03/21/18 03:06 Expected date of discharge: 03/22/18 Attending physician: Emiliana Herrera Primary care physician: Emiliana Herrera - Discharge Diagnosis(es) (1) Term Current Visit: Yes Status: Acute (2) SROM (spontaneous rupture of membranes) Current Visit: Yes Status: Acute (3) Status post vaginal delivery Current Visit: Yes Status: Acute Hospital Course: This is a very pleasant 23-year-old 1 para 0 at 38-0/7 weeks with an estimated due date of 810. Patient presented to labor and delivery with complaints of rupture of membranes this was confirmed she was grossly ruptured. On initial physical exam she was noted to have a bulging bag of water rupture was suspected this bulging bag was then ruptured and clear fluid was obtained. Patient was admitted to labor and delivery and Pitocin augmentation of labor was begun. Patient did request an epidural during labor and this was placed without difficulty by anesthesia. She progressed throughout eventually becoming complete she started pushing and had a normal spontaneous vaginal delivery of viable male at 1442, weight of 7 pounds 2.1 ounces, Apgars of 8 and 9 at one and 5 minutes respectively. Patient's course has been uneventful she is ambulating and voiding without difficulty. She tolerated regular diet this morning without nausea or vomiting. She states her pain is well-controlled. She is bottle feeding. She states her lochia is minimal at this time. She does wish discharge home this afternoon. Patient Condition at Discharge: Good Plan - Discharge Summary New Discharge Prescriptions: No Action Wbj-Yryk-Uirsc Acid [-U Capsule (formulary)] 1 cap PO DAILY Acyclovir 500 mg PO DAILY Discharge Medication List Jla-Niia-Jrnxp Acid [-U Capsule (formulary)] 1 cap PO DAILY [History] Acyclovir 500 mg PO DAILY 03/21/18 [History] Follow up Appointment(s)/Referral(s): Emiliana Herrera DO [Primary Care Provider] - 4 Weeks Patient Instructions/Handouts: Vaginal Delivery (DC), Vaginal Delivery (GEN) Activity/Diet/Wound Care/Special Instructions: No tub baths or intercourse until 6 weeks Discharge Disposition: HOME SELF-CARE
[2018-03-22] MEDS ORDERED: MEASLES-MUMPS-RUBELLA VACC/PF 12,500 UNIT/0.5 ML VIAL SQ ONE (14:05)
[2018-03-22 15:56] VITALS: BP 109/71; PULSE 105; TEMP 98.7
== END 2018-03-22 18:00 | disposition home or self-care (01) | DRG 774 ==
LOC: FBPOP 02:45 → 4FBP 03:06
PROVIDERS: ADMIT Obstetrics & Gynecology; ATTEND Obstetrics & Gynecology Obstetrics
PROC: 00HU33Z Insertion of Infusion Device into Spinal Canal, Percutaneous Approach (ICD-10-PCS; principal; 2018-03-21)
PROC: 10907ZC Drainage of Amniotic Fluid, Therapeutic from Products of Conception, Via Natural or Artificial Opening (ICD-10-PCS; principal; 2018-03-21)
PROC: 3E0R3NZ Introduction of Analgesics, Hypnotics, Sedatives into Spinal Canal, Percutaneous Approach (ICD-10-PCS; principal; 2018-03-21)
PROC: 0KQM0ZZ Repair Perineum Muscle, Open Approach (ICD-10-PCS; principal; 2018-03-21)
PROC: 10E0XZZ Delivery of Products of Conception, External Approach (ICD-10-PCS; principal; 2018-03-21)
DX: O69.81X0 Labor and delivery complicated by cord around neck, without compression, not applicable or unspecified (principal); O98.32 Other infections with a predominantly sexual mode of transmission complicating childbirth; Z37.0 Single live birth; O70.1 Second degree perineal laceration during delivery; A60.00 Herpesviral infection of urogenital system, unspecified; Z3A.38 38 weeks gestation of pregnancy; Z82.49 Family history of ischemic heart disease and other diseases of the circulatory system; Z83.3 Family history of diabetes mellitus; Z79.899 Other long term (current) drug therapy
CPT/HCPCS: 59025; 84112; 85025; 90707; 99213

== ENCOUNTER 2018-06-22 07:18 | Emergency (ER) | payer OTHER ==
[2018-06-22 07:28] VITALS: BP 120/76; PULSE 80; RESP 18; TEMP 98.2
[2018-06-22] MEDS ORDERED: PROPARACAINE 0.5% OPHTH DROPS 15 ML BTL LEFT EYE STA (07:47)
--- NOTE | 2018-06-22 08:03 | ED ---
General Adult HPI - General Chief complaint: Eye Problems Stated complaint: swollen eye Time Seen by Provider: 06/22/18 07:43 Source: patient, RN notes reviewed, old records reviewed Mode of arrival: ambulatory Limitations: no limitations - History of Present Illness Initial comments: 23-year-old female presenting for evaluation of left eye irritation and pain. Patient states yesterday evening she rubbed her eye and had a burning sensation on the medial left upper lid. Today she noted there was some swelling in her lid. Patient is otherwise healthy, no chronic medical problems. No fever or chills. She does not wear contacts, no specific trauma reported. Denies any visual changes. Denies any URI symptoms. - Related Data Home Medications Medication Instructions Recorded Confirmed Zzf-Arsm-Cdhra Acid 1 cap PO DAILY 12/20/17 03/21/18 [-U Capsule (formulary)] Acyclovir 500 mg PO DAILY 03/21/18 03/21/18 Previous Rx's Medication Instructions Recorded Erythromycin Ophth Oint [Romycin 1 applic LEFT EYE QID #3.5 gm 06/22/18 Ophth Oint] Allergies Allergy/AdvReac Type Severity Reaction Status Date / Time No Known Allergies Allergy Verified 03/21/18 02:54 Review of Systems ROS Statement: Those systems with pertinent positive or pertinent negative responses have been documented in the HPI. ROS Other: All systems not noted in ROS Statement are negative. Past Medical History Past Medical History: Asthma Additional Past Medical History / Comment(s): syncope, IBS, tachycardia during History of Any Multi-Drug Resistant Organisms: None Reported Past Surgical History: Adenoidectomy, Tonsillectomy Additional Past Surgical History / Comment(s): childhood Past Anesthesia/Blood Transfusion Reactions: No Reported Reaction Past Psychological History: Anxiety, Depression Smoking Status: Never smoker Past Alcohol Use History: None Reported Past Drug Use History: None Reported - Past Family History Mother Family Medical History: Diabetes Mellitus, Hypertension, Vascular Disorder Additional Family Medical History / Comment(s): crohns, hernia, neuropathy General Exam Limitations: no limitations General appearance: alert, in no apparent distress Head exam: Present: atraumatic, normocephalic Eye exam: Present: normal appearance, PERRL, EOMI, other (Very small edema and erythema in the medial upper lid. Globes are soft, normal ocular movement. ). Absent: periorbital swelling ENT exam: Present: normal exam, normal oropharynx Neck exam: Present: normal inspection. Absent: tenderness, meningismus Respiratory exam: Present: normal lung sounds bilaterally. Absent: respiratory distress Cardiovascular Exam: Present: regular rate, normal rhythm GI/Abdominal exam: Present: soft. Absent: distended, tenderness, guarding Course Vital Signs 06/22/18 07:26 Temperature 98.2 F Pulse Rate 80 Respiratory 18 Rate Blood Pressure 120/76 O2 Sat by Pulse 99 Oximetry Medical Decision Making - Medical Decision Making 23-year-old female with irritation of the left eye. She has a small amount of edema and erythema suggestive of early hordeolum. Lid is everted, no foreign body, there is no corneal abrasion on fluorescein staining. Visual acuity is normal. Globes are soft. Patient will begin warm compresses, avoid eye makeup , and apply topical antibiotic. Disposition Clinical Impression: Internal hordeolum Disposition: HOME SELF-CARE Condition: Good Instructions: Laney (ED) Prescriptions: Erythromycin Ophth Oint [Romycin Ophth Oint] 1 applic LEFT EYE QID #3.5 gm Is patient prescribed a controlled substance at d/c from ED?: No Referrals: Lynn Clemens MD [Primary Care Provider] - 1-2 days Time of Disposition: 08:02
== END 2018-06-22 08:23 | disposition home or self-care (01) ==
LOC: EC 07:18
DX: H00.024 Hordeolum internum left upper eyelid (principal); Z79.899 Other long term (current) drug therapy
CPT/HCPCS: 99283

== ENCOUNTER 2018-08-20 12:25 | Emergency (ER) | payer BC, OTHER ==
[2018-08-20 12:49] VITALS: BP 114/63; PULSE 89; RESP 18; TEMP 98.2
--- NOTE | 2018-08-20 14:30 | ED ---
General Adult HPI - General Chief complaint: Upper Respiratory Infection Stated complaint: Sore throat, congested Time Seen by Provider: 08/20/18 13:56 Source: patient, RN notes reviewed Mode of arrival: ambulatory Limitations: no limitations - History of Present Illness Initial comments: Patient is a 23 year old female with history of adenoidectomy and tonsillectomy with complaint of sore throat, congestion and runny nose since yesterday. Her baby has RSV. Denies cough, shortness of breath, fever, chills, ear pain or drainage, chest pain, abdominal pain, back pain, nausea, vomiting, diarrhea, changes in bowel movements, or any other complaints. - Related Data Home Medications Medication Instructions Recorded Confirmed Pzh-Emod-Sfqvj Acid 1 cap PO DAILY 12/20/17 03/21/18 [-U Capsule (formulary)] Acyclovir 500 mg PO DAILY 03/21/18 03/21/18 Previous Rx's Medication Instructions Recorded Erythromycin Ophth Oint [Romycin 1 applic LEFT EYE QID #3.5 gm 06/22/18 Ophth Oint] Allergies Allergy/AdvReac Type Severity Reaction Status Date / Time No Known Allergies Allergy Verified 08/20/18 12:45 Review of Systems ROS Statement: Those systems with pertinent positive or pertinent negative responses have been documented in the HPI. ROS Other: All systems not noted in ROS Statement are negative. Past Medical History Past Medical History: Asthma Additional Past Medical History / Comment(s): syncope, IBS, tachycardia during History of Any Multi-Drug Resistant Organisms: None Reported Past Surgical History: Adenoidectomy, Tonsillectomy Additional Past Surgical History / Comment(s): childhood Past Anesthesia/Blood Transfusion Reactions: No Reported Reaction Past Psychological History: Anxiety, Depression Smoking Status: Never smoker Past Alcohol Use History: None Reported Past Drug Use History: None Reported - Past Family History Mother Family Medical History: Diabetes Mellitus, Hypertension, Vascular Disorder Additional Family Medical History / Comment(s): crohns, hernia, neuropathy General Exam Limitations: no limitations General appearance: alert, in no apparent distress Head exam: Present: atraumatic, normocephalic Eye exam: Present: normal appearance ENT exam: Present: normal exam, normal oropharynx (No tonsils.), TM's normal bilaterally Neck exam: Present: normal inspection, other (No lymphadenopathy.) Respiratory exam: Present: normal lung sounds bilaterally Cardiovascular Exam: Present: regular rate, normal rhythm Neurological exam: Present: alert, oriented X3 Psychiatric exam: Present: normal affect, normal mood Skin exam: Present: warm, dry Course Vital Signs 08/20/18 12:45 Temperature 98.2 F Pulse Rate 89 Respiratory 18 Rate Blood Pressure 114/63 O2 Sat by Pulse 97 Oximetry Medical Decision Making - Medical Decision Making RSV is positive. Influenza A/B and Rapid Strep are negative. Case discussed in detail with attending physician Dr. Jett. - Lab Data Lab Results 08/20/18 08/20/18 Range/Units 14:31 14:31 Influenza Type A RNA Not Detected (Not Detectd) Influenza Type B (PCR) Not Detected (Not Detectd) RSV (PCR) Positive H (Negative) Group A Strep Rapid Negative (Negative) Disposition Clinical Impression: RSV infection Disposition: HOME SELF-CARE Condition: Good Instructions: Upper Respiratory Infection (ED) Additional Instructions: Follow up with your PCP in 1-2 days. Return to the ER if your symptoms worsen or any other concerns. Is patient prescribed a controlled substance at d/c from ED?: No Referrals: Lynn Clemens MD [Primary Care Provider] - 1-2 days Time of Disposition: 16:16
== END 2018-08-20 16:30 | disposition home or self-care (01) ==
LOC: EC 12:25
DX: B97.4 Respiratory syncytial virus as the cause of diseases classified elsewhere (principal)
CPT/HCPCS: 87081; 87430; 87502; 87634; 99283

== ENCOUNTER 2018-09-16 20:46 | Emergency (ER) | payer BC, OTHER ==
[2018-09-16 20:51] LABS: Glucose,Whole Blood 95 mg/dL (75-99)
[2018-09-16] MEDS ORDERED: SODIUM CHLORIDE 0.9% 1,000 ML IV STA ×2 (20:51)
--- NOTE | 2018-09-16 20:51 | ED ---
Chest Pain HPI - General Stated Complaint: Chest Pain Time Seen by Provider: 09/16/18 20:50 Source: RN notes reviewed, old records reviewed - History of Present Illness Initial Comments: This is a 23-year-old female the ER for evaluation patient resents today for evaluation regards to chest pain and near syncopal event, then patient did have a syncopal event here in the ER waiting for triaged. Syncope last seconds. Patient no change in color, patient was unresponsive but continued breathing. Patient's coming of chest pain anterior chest pain feels muscular scale mainly when she takes a deep breath. States she had some heart disease with a recent and delivery about 6 months ago. Was taken off all medications as of recent. Does not get occasional chest pain. Patient denies any modifying factors for symptoms no fever cough or congestion MD Complaint: chest pain -: hour(s) Onset: during rest Pain Location: substernal Pain Radiation: none Severity: mild Severity scale (1-10): 3 Quality: aching, dull Consistency: constant, other Improves With: nothing Worsens With: nothing Other Symptoms: syncope Treatments Prior to Arrival: none - Related Data Home Medications Medication Instructions Recorded Confirmed Albuterol Sulfate [Proair Hfa] 2 puff INHALATION RT-Q6H PRN 09/16/18 09/16/18 Docusate [Colace] 100 mg PO DAILY PRN 09/16/18 09/16/18 Allergies Allergy/AdvReac Type Severity Reaction Status Date / Time No Known Allergies Allergy Verified 09/16/18 21:06 Review of Systems ROS Statement: Those systems with pertinent positive or pertinent negative responses have been documented in the HPI. ROS Other: All systems not noted in ROS Statement are negative. EKG Findings - EKG Comments: EKG Findings:: EKG shows normal sinus rhythm rate of 87, NE 1:30, QRS 90, QTc 442 Past Medical History Past Medical History: Asthma Additional Past Medical History / Comment(s): syncope, IBS, tachycardia during History of Any Multi-Drug Resistant Organisms: None Reported Past Surgical History: Adenoidectomy, Tonsillectomy Additional Past Surgical History / Comment(s): childhood Past Anesthesia/Blood Transfusion Reactions: No Reported Reaction Past Psychological History: Anxiety, Depression Smoking Status: Never smoker Past Alcohol Use History: None Reported Past Drug Use History: None Reported - Past Family History Mother Family Medical History: Diabetes Mellitus, Hypertension, Vascular Disorder Additional Family Medical History / Comment(s): crohns, hernia, neuropathy General Exam General appearance: alert, in no apparent distress Head exam: Present: atraumatic, normocephalic, normal inspection Eye exam: Present: normal appearance, PERRL, EOMI. Absent: scleral icterus, conjunctival injection, periorbital swelling ENT exam: Present: normal exam, mucous membranes moist Neck exam: Present: normal inspection. Absent: tenderness, meningismus, lymphadenopathy Respiratory exam: Present: normal lung sounds bilaterally. Absent: respiratory distress, wheezes, rales, rhonchi, stridor Cardiovascular Exam: Present: regular rate, normal rhythm, normal heart sounds. Absent: systolic murmur, diastolic murmur, rubs, gallop, clicks GI/Abdominal exam: Present: soft, normal bowel sounds. Absent: distended, tenderness, guarding, rebound, rigid Extremities exam: Present: normal inspection, full ROM, normal capillary refill. Absent: tenderness, pedal edema, joint swelling, calf tenderness Back exam: Present: normal inspection Neurological exam: Present: alert, oriented X3, CN II-XII intact Psychiatric exam: Present: normal affect, normal mood Skin exam: Present: warm, dry, intact, normal color. 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 Disposition Clinical Impression: Chest pain, Syncope and collapse Disposition: HOME SELF-CARE Condition: Good Instructions (If sedation given, give patient instructions): Chest Pain (ED) Is patient prescribed a controlled substance at d/c from ED?: No Referrals: Lynn Clemens MD [Primary Care Provider] - 1-2 days
[2018-09-16 21:05] VITALS: RESP 18
[2018-09-16 21:17] LABS: Basophils # (A) 0.1 k/uL (0-0.2); Basophils % (A) 1 %; Eosinophils # (A) 0.2 k/uL (0-0.7); Eosinophils % (A) 2 %; HCT 39.8 % (34.0-46.0); HGB 12.9 gm/dL (11.4-16.0); Lymphocytes # (A) 3.7 k/uL (1.0-4.8); Lymphocytes % (A) 36 %; MCH 28.4 pg (25.0-35.0); MCHC 32.5 g/dL (31.0-37.0); MCV 87.5 fL (80.0-100.0); Mean Platelet Volume 6.7; Monocytes # (A) 0.5 k/uL (0-1.0); Monocytes % (A) 5 %; Neutrophils # (A) 5.5 k/uL (1.3-7.7); Neutrophils % (A) 54 %; Platelet Count 293 k/uL (150-450); RBC 4.55 m/uL (3.80-5.40); RDW 13.5 % (11.5-15.5); WBC 10.2 k/uL (3.8-10.6)
[2018-09-16 21:30] LABS: INR 0.9 (<1.2)
--- NOTE | 2018-09-16 21:30 | XR ---
EXAMINATION: XR chest 2V DATE AND TIME: 09/16/2018 9:19 PM CLINICAL INDICATION: PHH; Chest Pain TECHNIQUE: Departmental protocol COMPARISON: 10/20/2012 FINDINGS: The lungs are clear. The pleural spaces are negative. The cardiac silhouette is not enlarged. The remainder of the mediastinal silhouette is unremarkable. The skeletal structures and soft tissues are negative for acute findings. IMPRESSION: NO ACUTE PROCESS.
[2018-09-16 21:31] LABS: D-Dimer <0.17 mg/L FEU (<0.60); Partial Thromboplastin Time 27.4 sec (22.0-30.0); Prothrombin Time 10.2 sec (9.0-12.0)
[2018-09-16 21:37] LABS: ALT 14 U/L (9-52); AST 20 U/L (14-36); Albumin 4.5 g/dL (3.5-5.0); Alkaline Phosphatase 88 U/L (38-126); Anion Gap 10 mmol/L; Blood Urea Nitrogen 17 mg/dL (7-17); Calcium 9.5 mg/dL (8.4-10.2); Carbon Dioxide 23 mmol/L (22-30); Chloride 110 mmol/L (98-107); Glucose 99 mg/dL (74-99); Lipase 102 U/L (23-300); Potassium 4.1 mmol/L (3.5-5.1); Sodium 143 mmol/L (137-145); Total Bilirubin 0.5 mg/dL (0.2-1.3); Total Protein 7.1 g/dL (6.3-8.2)
[2018-09-16 21:54] LABS: Creatine Kinase 128 U/L (30-135)
[2018-09-16 22:07] LABS: Creatine Kinase MB 0.7 ng/mL (0.0-2.4); Troponin I <0.012 ng/mL (0.000-0.034)
[2018-09-16 22:44] VITALS: TEMP 98
[2018-09-16] MEDS ORDERED: DIAZEPAM 5 MG/ML 2 ML INJ IVP STA (22:48)
[2018-09-16] MEDS ORDERED: KETOROLAC 30 MG/ML 1 ML VIAL IVP STA (22:48)
[2018-09-16 22:54] LABS: Appearance,Urine Clear (Clear); Bilirubin,Urine Negative (Negative); Blood,Urine Negative (Negative); Color,Urine Yellow; Glucose,Urine (UA) Negative (Negative); Ketones,Urine Negative (Negative); Leukocyte Esterase,Urine Negative (Negative); Nitrite,Urine Negative (Negative); PH, Urine 6.5 (5.0-8.0); Protein,Urine Negative (Negative); Specific Gravity,Urine 1.024 (1.001-1.035)
[2018-09-16 23:22] VITALS: BP 118/70; PULSE 80
== END 2018-09-16 23:21 | disposition home or self-care (01) ==
LOC: EC 20:46
DX: R07.9 Chest pain, unspecified (principal); R55 Syncope and collapse; J45.909 Unspecified asthma, uncomplicated
CPT/HCPCS: 36415; 93005; 85379; 83880; 80053; 82550; 82553; 83690; 83735; 84484; 85025; 85610; 85730; 81003; 71046; 99285; 96374; 96361 ×2; J1885

== ENCOUNTER → 2018-10-09 | Day surgery (SDC) | payer OTHER ==
[2018-10-07 10:39] VITALS: BMI 26.5
[~2018-10-09] MED LIST: SODIUM CHLORIDE 0.9% 1,000 ML IV SCH
--- NOTE | 2018-10-09 15:29 | P.PCN ---
Preoperative Diagnosis: Diagnosis Recurrent dizzy spells Twelve-lead ECG shows sinus rhythm with normal VT narrow QRS normal ST segments normal QT interval Tilt table test per protocol Baseline blood pressure 125/85 mmHg Baseline heart rate 72 beats a minute. Patient was tilted upright at an angle of 70 per protocol heart rate and blood pressure remained stable Immediately upon assuming upright position the patient was unable to speak and appeared to have passed out briefly and then subsequently woke up spontaneously and then complained of her hands tingling did during this apparent phase of unresponsiveness her heart rate and blood pressure remained normal She found that she was seeing spots. Pulse rate 85 blood pressure 108/69 mmHg Impression Normal heart rate and blood pressure response to upright tilting Normal twelve-lead ECG with normal QT interval During the period of apparent unresponsiveness, patient's heart rate and blood pressure were completely normal Consider psychogenic syncope in the differential diagnosis of her symptomatology Follow-up with Dr. Guthrie and with Dr. Bailey
== END ==
LOC: CATHEP 09:43
PROVIDERS: ATTEND Internal Medicine Clinical Cardiac Electrophysiology
DX: R55 Syncope and collapse (principal); R00.0 Tachycardia, unspecified; I95.1 Orthostatic hypotension; R00.2 Palpitations; Z79.899 Other long term (current) drug therapy
CPT/HCPCS: 81025; 93660

== ENCOUNTER → 2019-01-01 | Outpatient (CLI) | payer OTHER ==
--- NOTE | 2019-01-01 17:38 | MR ---
EXAMINATION TYPE: MR brain wo con DATE OF EXAM: 01/01/2019 COMPARISON: CT 06/07/2017 HISTORY: 23-year-old female Vasovagal syncope TECHNIQUE: Multiplanar, multisequence images of the brain and brainstem were acquired without IV con trast. Diffusion weighted imaging is performed. FINDINGS: No evidence for acute infarction, hemorrhage, mass, mass effect, midline shift, herniation, effacemen t of basal cisterns, or extra-axial fluid collection. The ventricles and sulci are age-appropriate. Major intracranial flow voids are intact. No white matter signal abnormality. Midline structures demonstrate normal morphology. The craniocervical junction is normal. Redemonstrated polyp within the right maxillary sinus. Globes are intact. Slight leftward nasal septa l deviation. IMPRESSION: 1. No intracranial abnormality seen. 2. Mucosal retention cyst redemonstrated within the right maxillary sinus..
== END | disposition home or self-care (01) ==
LOC: RADMRIMAIN 13:43
PROVIDERS: ATTEND Psychiatry & Neurology Neurology
DX: R55 Syncope and collapse (principal)
CPT/HCPCS: 70551

== ENCOUNTER 2019-11-14 14:40 | Emergency (ER) | payer BC, OTHER ==
[2019-11-14 14:43] VITALS: BP 117/78; PULSE 63; RESP 18; TEMP 98
[2019-11-14 15:23] LABS: Basophils % (A) 1 %; Eosinophils # (A) 0.1 k/uL (0-0.7); Eosinophils % (A) 1 %; HCT 40.5 % (34.0-46.0); HGB 13.1 gm/dL (11.4-16.0); Lymphocytes % (A) 37 %; MCH 29.5 pg (25.0-35.0); MCHC 32.4 g/dL (31.0-37.0); MCV 91.1 fL (80.0-100.0); Mean Platelet Volume 7.7; Monocytes # (A) 0.4 k/uL (0-1.0); Monocytes % (A) 5 %; Neutrophils # (A) 4.4 k/uL (1.3-7.7); Neutrophils % (A) 54 %; Platelet Count 256 k/uL (150-450); RBC 4.45 m/uL (3.80-5.40); RDW 12.1 % (11.5-15.5); WBC 8.2 k/uL (3.8-10.6)
[2019-11-14 15:30] LABS: ALT 6 U/L (4-34); AST 21 U/L (14-36); African American GFR (CKD) >90 (>60 ml/min/1.73 sqM); Albumin 4.6 g/dL (3.5-5.0); Alkaline Phosphatase 82 U/L (38-126); Anion Gap 9 mmol/L; Blood Urea Nitrogen 18 mg/dL (7-17); Calcium 9.2 mg/dL (8.4-10.2); Carbon Dioxide 24 mmol/L (22-30); Chloride 105 mmol/L (98-107); Glucose 97 mg/dL (74-99); Non-African American GFR(CKD) >90 (>60 ml/min/1.73 sqM); Potassium 3.7 mmol/L (3.5-5.1); Sodium 138 mmol/L (137-145); Total Bilirubin 0.3 mg/dL (0.2-1.3); Total Protein 7.1 g/dL (6.3-8.2)
--- NOTE | 2019-11-14 15:31 | ED ---
General Adult HPI - General Chief complaint: Vaginal Bleeding Stated complaint: 6 wks preg/vaginal bleeding Time Seen by Provider: 11/14/19 14:46 Source: patient, RN notes reviewed Mode of arrival: ambulatory Limitations: no limitations - History of Present Illness Initial comments: 24-year-old female currently about 6 weeks with an LMP of 10/01/2019 presents to the emergency department for a chief complaint of vaginal bleeding. Patient states she was having some mild pelvic cramping today at work. States that when she went to the bathroom she noticed that she was having light vaginal bleeding. Patient states she became concerned and wanted to present to the emergency Department. Patient denies lightheadedness. She denies chest pain or shortness of breath. Patient has not yet had a confirmed intrauterine by ultrasound. She is taking vitamins.Patient has no other complaints at this time including shortness of breath, chest pain, abdominal pain, nausea or vomiting, headache, or visual changes. - Related Data Home Medications Medication Instructions Recorded Confirmed Pnv No.95/Ferrous Fum/Folic AC 1 tab PO DAILY 11/14/19 11/14/19 [ Multivitamin Tablet] Previous Rx's Medication Instructions Recorded Cephalexin [Keflex] 500 mg PO Q8H 7 Days #21 cap 11/14/19 Allergies Allergy/AdvReac Type Severity Reaction Status Date / Time No Known Allergies Allergy Verified 11/14/19 15:38 Review of Systems ROS Statement: Those systems with pertinent positive or pertinent negative responses have been documented in the HPI. ROS Other: All systems not noted in ROS Statement are negative. Past Medical History Past Medical History: Asthma Additional Past Medical History / Comment(s): syncope, IBS, tachycardia during History of Any Multi-Drug Resistant Organisms: None Reported Past Surgical History: Adenoidectomy, Tonsillectomy Additional Past Surgical History / Comment(s): childhood Past Anesthesia/Blood Transfusion Reactions: No Reported Reaction Past Psychological History: Anxiety, Depression Smoking Status: Never smoker Past Alcohol Use History: None Reported Past Drug Use History: None Reported - Past Family History Mother Family Medical History: Diabetes Mellitus, Hypertension, Vascular Disorder Additional Family Medical History / Comment(s): crohns, hernia, neuropathy General Exam Limitations: no limitations General appearance: alert, in no apparent distress Head exam: Present: atraumatic, normocephalic, normal inspection Eye exam: Present: normal appearance, PERRL, EOMI. Absent: scleral icterus, conjunctival injection, periorbital swelling ENT exam: Present: normal exam, mucous membranes moist Neck exam: Present: normal inspection. Absent: tenderness, meningismus, lymph adenopathy Respiratory exam: Present: normal lung sounds bilaterally. Absent: respiratory distress, wheezes, rales, rhonchi, stridor Cardiovascular Exam: Present: regular rate, normal rhythm, normal heart sounds. Absent: systolic murmur, diastolic murmur, rubs, gallop, clicks GI/Abdominal exam: Present: soft, normal bowel sounds. Absent: distended, tenderness (no significant abdominal tenderenss), guarding, rebound, rigid External exam: Present: normal external exam. Absent: erythema, swelling, lesions, lacerations, ecchymosis Speculum exam: Present: vaginal bleeding (Minimal bleeding from cervix). Absent: normal speculum exam, erythema, vaginal discharge, cervical discharge, foreign body, tissue, laceration, other By manual exam: Present: uterine tenderness (Mild). Absent: normal by manual exam, cervical motion tenderness, adnexal tenderness, adnexal mass, uterine enlargement Course Vital Signs 11/14/19 14:41 Temperature 98 F Pulse Rate 63 Respiratory 18 Rate Blood Pressure 117/78 O2 Sat by Pulse 100 Oximetry Medical Decision Making - Medical Decision Making Vitals are stable. Patient is well-appearing. Physical exam does reveal minimal vaginal bleeding with uterine tenderness. CBC CMP unremarkable. U rinalysis does show 8 white blood cells with occasional bacteria, patient will be treated for possible urinary tract infection. Patient is O+ blood type, does not require RhoGAM. Ultrasound shows an empty uterus without adnexal mass or free fluid. There is no sign of ectopic . HCG is 413. I discussed the patient that it is possible this could be an early versus miscarriage. I also discussed the importance of ruling out ectopic and repeating an hCG in 2 days. Discussed the importance of returning if she has worsening pain. Otherwise she will follow-up with [facility], patient is already established. - Lab Data Result diagrams: 11/14/19 14:55 11/14/19 14:55 Lab Results 11/14/19 11/14/19 11/14/19 Range/Units 14:55 14:55 14:55 WBC 8.2 (3.8-10.6) k/uL RBC 4.45 (3.80-5.40) m/uL Hgb 13.1 (11.4-16.0) gm/dL Hct 40.5 (34.0-46.0) % MCV 91.1 (80.0-100.0) fL MCH 29.5 (25.0-35.0) pg MCHC 32.4 (31.0-37.0) g/dL RDW 12.1 (11.5-15.5) % Plt Count 256 (150-450) k/uL Neutrophils % 54 % Lymphocytes % 37 % Monocytes % 5 % Eosinophils % 1 % Basophils % 1 % Neutrophils # 4.4 (1.3-7.7) k/uL Lymphocytes # 3.0 (1.0-4.8) k/uL Monocytes # 0.4 (0-1.0) k/uL Eosinophils # 0.1 (0-0.7) k/uL Basophils # 0.0 (0-0.2) k/uL Sodium 138 (137-145) mmol/L Potassium 3.7 (3.5-5.1) mmol/L Chloride 105 (98-107) mmol/L Carbon Dioxide 24 (22-30) mmol/L Anion Gap 9 mmol/L BUN 18 H (7-17) mg/dL Creatinine 0.51 L (0.52-1.04) mg/dL Est GFR (CKD-EPI)AfAm >90 (>60 ml/min/1.73 sqM) Est GFR (CKD-EPI)NonAf >90 (>60 ml/min/1.73 sqM) Glucose 97 (74-99) mg/dL Calcium 9.2 (8.4-10.2) mg/dL Total Bilirubin 0.3 (0.2-1.3) mg/dL AST 21 (14-36) U/L ALT 6 (4-34) U/L Alkaline Phosphatase 82 (38-126) U/L Total Protein 7.1 (6.3-8.2) g/dL Albumin 4.6 (3.5-5.0) g/dL HCG, Quant 413.4 mIU/mL Urine Color Urine Appearance (Clear) Urine pH (5.0-8.0) Ur Specific [place] (1.001-1.035) Urine Protein (Negative) Urine Glucose (UA) (Negative) Urine Ketones (Negative) Urine Blood (Negative) Urine Nitrite (Negative) Urine Bilirubin (Negative) Urine Urobilinogen (<2.0) mg/dL Ur Leukocyte Esterase (Negative) Urine RBC (0-5) /hpf Urine WBC (0-5) /hpf Ur Squamous Epith Cells (0-4) /hpf Urine Bacteria (None) /hpf Hyaline Casts (0-2) /lpf Urine Mucus (None) /hpf Blood Type O Positive Blood Type Recheck O Pos Bld Type Recheck Status No 11/14/19 Range/Units 15:00 WBC (3.8-10.6) k/uL RBC (3.80-5.40) m/uL Hgb (11.4-16.0) gm/dL Hct (34.0-46.0) % MCV (80.0-100.0) fL MCH (25.0-35.0) pg MCHC (31.0-37.0) g/dL RDW (11.5-15.5) % Plt Count (150-450) k/uL Neutrophils % % Lymphocytes % % Monocytes % % Eosinophils % % Basophils % % Neutrophils # (1.3-7.7) k/uL Lymphocytes # (1.0-4.8) k/uL Monocytes # (0-1.0) k/uL Eosinophils # (0-0.7) k/uL Basophils # (0-0.2) k/uL Sodium (137-145) mmol/L Potassium (3.5-5.1) mmol/L Chloride (98-107) mmol/L Carbon Dioxide (22-30) mmol/L Anion Gap mmol/L BUN (7-17) mg/dL Creatinine (0.52-1.04) mg/dL Est GFR (CKD-EPI)AfAm (>60 ml/min/1.73 sqM) Est GFR (CKD-EPI)NonAf (>60 ml/min/1.73 sqM) Glucose (74-99) mg/dL Calcium (8.4-10.2) mg/dL Total Bilirubin (0.2-1.3) mg/dL AST (14-36) U/L ALT (4-34) U/L Alkaline Phosphatase (38-126) U/L Total Protein (6.3-8.2) g/dL Albumin (3.5-5.0) g/dL HCG, Quant mIU/mL Urine Color Yellow Urine Appearance Clear (Clear) Urine pH 5.5 (5.0-8.0) Ur Specific [place] 1.028 (1.001-1.035) Urine Protein Negative (Negative) Urine Glucose (UA) Negative (Negative) Urine Ketones Negative (Negative) Urine Blood Moderate H (Negative) Urine Nitrite Negative (Negative) Urine Bilirubin Negative (Negative) Urine Urobilinogen <2.0 (<2.0) mg/dL Ur Leukocyte Esterase Small H (Negative) Urine RBC 3 (0-5) /hpf Urine WBC 8 H (0-5) /hpf Ur Squamous Epith Cells 3 (0-4) /hpf Urine Bacteria Occasional H (None) /hpf Hyaline Casts 1 (0-2) /lpf Urine Mucus Rare H (None) /hpf Blood Type Blood Type Recheck Bld Type Recheck Status Disposition Clinical Impression: Vaginal bleeding during , Threatened miscarriage Disposition: HOME SELF-CARE Condition: Good Instructions (If sedation given, give patient instructions): Threatened Miscarriage (ED) Additional Instructions: Please repeat blood work on Saturday afternoon. Call Dr. Lance on Saturday for an appointment. If you have worsening symptoms such as worsening abdominal pain re turn here to the emergency department. Otherwise take antibiotics as directed. Prescriptions: Cephalexin [Keflex] 500 mg PO Q8H 7 Days #21 cap Is patient prescribed a controlled substance at d/c from ED?: No Referrals: Lynn Clemens MD [Primary Care Provider] - 1-2 days Emiliana Herrera DO [Family Provider] - 1-2 days Time of Disposition: 16:34
[2019-11-14 15:43] LABS: Appearance,Urine Clear (Clear); Bacteria,Urine Occasional /hpf; Bilirubin,Urine Negative (Negative); Blood,Urine Moderate (Negative); Color,Urine Yellow; Glucose,Urine (UA) Negative (Negative); Hyaline Casts,Urine 1 /lpf (0-2); Ketones,Urine Negative (Negative); Leukocyte Esterase,Urine Small (Negative); Mucus,Urine Rare /hpf; Nitrite,Urine Negative (Negative); PH, Urine 5.5 (5.0-8.0); Protein,Urine Negative (Negative); RBC,Urine 3 /hpf (0-5); Specific Gravity,Urine 1.028 (1.001-1.035); Squamous Epithelial Cell,Urine 3 /hpf (0-4); Urobilinogen,Urine <2.0 mg/dL (<2.0); WBC,Urine 8 /hpf (0-5)
[2019-11-14 15:46] LABS: HCG,Quantitative Serum 413.4 mIU/mL
--- NOTE | 2019-11-14 16:03 | US ---
EXAMINATION TYPE: Transabdominal DATE OF EXAM: 11/14/2019 2:55 PM COMPARISON: NONE CLINICAL HISTORY: vag bleeding. Pelvic cramping and bleeding x 1 day, 2, para 1 EXAM PERFORMED: Transabdominal (TA) EXAM MEASUREMENTS: GESTATIONAL AGE / DATING Physician Established: Not established yet Dates by LMP: (6 weeks/1 days) EDC: 07/08/2020 Dates by First Scan: This is 1st scan Dates by Current Scan for: No IUP seen at this time MATERNAL ANATOMY Uterus: 7.7 x 4.0 x 5.7cm, anteverted Right Ovary: 2.4 x 1.3 x 1.7cm Left Ovary: 2.3 x 1.5 x 2.1cm Post CDS / Adnexa: wnl Presence of free fluid: no Presence of corpus luteal cyst: not seen Presence of subchorionic bleed: no GESTATION / SURVEY IUP: No IUP seen at this time Date of LMP: 10/02/2019 Beta HcG (if available): Not available at time of exam. IMPRESSION: Empty uterus. No adnexal mass or free fluid. No sign of ectopic .
[2019-11-14] MEDS ORDERED: CEPHALEXIN 500MG STARTER PACK 4 CAP BTL PO STA (16:31)
[2019-11-15 13:59] LABS: C. trachomatis,PCR Negative (Neg,Equiv); Chlamydia trachomatis Source Vagina; N. gonorrhoeae,PCR Negative (Neg,Equiv); Neisseria Source Vagina
== END 2019-11-14 17:07 | disposition home or self-care (01) ==
LOC: EC 14:40
DX: O20.0 Threatened abortion (principal); O20.9 Hemorrhage in early pregnancy, unspecified; Z3A.01 Less than 8 weeks gestation of pregnancy
CPT/HCPCS: 36415; 76801; 80053; 81001; 84702; 85025; 86900; 86901; 87086; 87491; 87591; 99284

== ENCOUNTER → 2019-11-16 | Outpatient (CLI) | payer OTHER | END | disposition home or self-care (01) | LOC: LABWHC1 10:11 | PROVIDERS: ATTEND Physician Assistant Medical | DX: O46.90 Antepartum hemorrhage, unspecified, unspecified trimester (principal); Z3A.00 Weeks of gestation of pregnancy not specified | CPT/HCPCS: 36415; 84702 ==

== ENCOUNTER → 2019-12-01 | Outpatient (CLI) | payer OTHER | END | disposition home or self-care (01) | LOC: LABWHC1 11:26 | PROVIDERS: ATTEND Obstetrics & Gynecology Obstetrics | DX: O02.1 Missed abortion (principal) | CPT/HCPCS: 36415; 84702 ==

== ENCOUNTER 2020-05-14 18:54 | Emergency (ER) | payer OTHER ==
[2020-05-14] MEDS ORDERED: ACETAMINOPHEN TAB 500 MG TAB PO STA (19:06)
[2020-05-14 19:56] LABS: Appearance,Urine Clear (Clear); Bilirubin,Urine Negative (Negative); Blood,Urine Negative (Negative); Color,Urine Colorless; Glucose,Urine (UA) Negative (Negative); Ketones,Urine Negative (Negative); Leukocyte Esterase,Urine Negative (Negative); Nitrite,Urine Negative (Negative); Protein,Urine Negative (Negative); Specific Gravity,Urine 1.005 (1.001-1.035); Urobilinogen,Urine <2.0 mg/dL (<2.0)
[2020-05-14 20:18] VITALS: RESP 16
--- NOTE | 2020-05-14 20:28 | ED ---
General Adult HPI - General Chief complaint: Back Pain/Injury Stated complaint: Lower Back Pain Time Seen by Provider: 05/14/20 19:00 Source: patient, RN notes reviewed Mode of arrival: ambulatory Limitations: no limitations - History of Present Illness Initial comments: 25-year-old female currently 5 weeks presents to the emergency room for a chief complaint of back pain. Patient reports she has pain in her tailbone area patient states that she has had this pain in the past with previous pregnancies. States it persisted throughout her first . Patient denies any abdominal pain whatsoever. Denies any vaginal bleeding. P yamilex reports she did miscarry about 6 months ago. Patient denies dysuria. Denies fevers or chills. No flank pain.Patient has no other complaints at this time including shortness of breath, chest pain, abdominal pain, nausea or vomiting, headache, or visual changes. - Related Data Home Medications Medication Instructions Recorded Confirmed Pnv No.95/Ferrous Fum/Folic AC 1 tab PO DAILY 11/14/19 05/14/20 [ Multivitamin Tablet] Albuterol Sulfate [Ventolin HFA] 1 - 2 puff INHALATION RT-Q6H PRN 05/14/20 05/14/20 Allergies Allergy/AdvReac Type Severity Reaction Status Date / Time No Known Allergies Allergy Verified 05/14/20 21:02 Review of Systems ROS Statement: Those systems with pertinent positive or pertinent negative responses have been documented in the HPI. ROS Other: All systems not noted in ROS Statement are negative. Past Medical History Past Medical History: Asthma Additional Past Medical History / Comment(s): syncope, IBS, tachycardia during History of Any Multi-Drug Resistant Organisms: None Reported Past Surgical History: Adenoidectomy, Tonsillectomy Additional Past Surgical History / Comment(s): childhood Past Anesthesia/Blood Transfusion Reactions: No Reported Reaction Past Psychological History: Anxiety, Depression Smoking Status: Never smoker Past Alcohol Use History: None Reported Past Drug Use History: None Reported - Past Family History Mother Family Medical History: Diabetes Mellitus, Hypertension, Vascular Disorder Additional Family Medical History / Comment(s): crohns, hernia, neuropathy General Exam Limitations: no limitations General appearance: alert, in no apparent distress Head exam: Present: atraumatic, normocephalic, normal inspection Eye exam: Present: normal appearance, PERRL, EOMI. Absent: scleral icterus, conjunctival injection, periorbital swelling ENT exam: Present: normal exam, mucous membranes moist Neck exam: Present: normal inspection. Absent: tenderness, meningismus, lymphadenopathy Respiratory exam: Present: normal lung sounds bilaterally. Absent: respiratory distress, wheezes, rales, rhonchi, stridor Cardiovascular Exam: Present: regular rate, normal rhythm, normal heart sounds. Absent: systolic murmur, diastolic murmur, rubs, gallop, clicks GI/Abdominal exam: Present: soft, normal bowel sounds. Absent: distended, tenderness (No abdominal tenderness whatsoever), guarding, rebound, rigid Back exam: Absent: CVA tenderness (R), CVA tenderness (L), vertebral tenderness (No lumbar spine tenderness. Full range of motion of lumbar spine.) Course Vital Signs 05/14/20 05/14/20 05/14/20 18:57 20:05 21:10 Temperature 97.8 F 98.0 F 98.4 F Pulse Rate 109 H 80 87 Respiratory 18 16 16 Rate Blood Pressure 120/77 118/63 128/70 O2 Sat by Pulse 99 99 99 Oximetry Medical Decision Making - Medical Decision Making Urinalysis was initially performed given patient was concerned that she had a urinary tract infection with this back pain. Urinalysis was unremarkable. Therefore I did have a discussion with patient about following up outpatient versus further workup here in the emergency room. Patient would prefer to have ultrasound and laboratory evaluation performed today. CBC and CMP are unremarkable. HCG Quant is 4700. Urinalysis is negative. Ultrasound shows too early to visualize intrauterine . However spontaneous is in the differential an ectopic is not entirely excluded. There is a possible early gestational sac. Both ovaries are identified without suspicious extra ovarian adnexal lesion. There is no free fluid present. Patient reevaluated after Tylenol and has no pain at this time. No history of vaginal bleeding. I did speak with patient's FORENSIC ACCOUNTANT Dr. Herrera who feels this is likely an early and recommends repeat hCG and to see her early next week. Prescription given for repeat blood work. Patient adamantly refused pelvic exam throughout her stay. - Lab Data Result diagrams: 05/14/20 20:31 05/14/20 20:31 Lab Results 05/14/20 05/14/20 05/14/20 Range/Units 19:14 19:14 20:31 WBC 11.3 H (3.8-10.6) k/uL RBC 4.42 (3.80-5.40) m/uL Hgb 13.0 (11.4-16.0) gm/dL Hct 39.3 (34.0-46.0) % MCV 88.7 (80.0-100.0) fL MCH 29.3 (25.0-35.0) pg MCHC 33.0 (31.0-37.0) g/dL RDW 12.0 (11.5-15.5) % Plt Count 282 (150-450) k/uL Neutrophils % 67 % Lymphocytes % 25 % Monocytes % 4 % Eosinophils % 2 % Basophils % 1 % Neutrophils # 7.6 (1.3-7.7) k/uL Lymphocytes # 2.9 (1.0-4.8) k/uL Monocytes # 0.5 (0-1.0) k/uL Eosinophils # 0.2 (0-0.7) k/uL Basophils # 0.1 (0-0.2) k/uL Sodium (137-145) mmol/L Potassium (3.5-5.1) mmol/L Chloride (98-107) mmol/L Carbon Dioxide (22-30) mmol/L Anion Gap mmol/L BUN (7-17) mg/dL Creatinine (0.52-1.04) mg/dL Est GFR (CKD-EPI)AfAm (>60 ml/min/1.73 sqM) Est GFR (CKD-EPI)NonAf (>60 ml/min/1.73 sqM) Glucose (74-99) mg/dL Calcium (8.4-10.2) mg/dL Total Bilirubin (0.2-1.3) mg/dL AST (14-36) U/L ALT (4-34) U/L Alkaline Phosphatase (38-126) U/L Total Protein (6.3-8.2) g/dL Albumin (3.5-5.0) g/dL HCG, Quant mIU/mL Urine Color Colorless Urine Appearance Clear (Clear) Urine pH 6.0 (5.0-8.0) Ur Specific Irene 1.005 (1.001-1.035) Urine Protein Negative (Negative) Urine Glucose (UA) Negative (Negative) Urine Ketones Negative (Negative) Urine Blood Negative (Negative) Urine Nitrite Negative (Negative) Urine Bilirubin Negative (Negative) Urine Urobilinogen <2.0 (<2.0) mg/dL Ur Leukocyte Esterase Negative (Negative) Urine HCG, Qual Detected (Not Detectd) 05/14/20 Range/Units 20:31 WBC (3.8-10.6) k/uL RBC (3.80-5.40) m/uL Hgb (11.4-16.0) gm/dL Hct (34.0-46.0) % MCV (80.0-100.0) fL MCH (25.0-35.0) pg MCHC (31.0-37.0) g/dL RDW (11.5-15.5) % Plt Count (150-450) k/uL Neutrophils % % Lymphocytes % % Monocytes % % Eosinophils % % Basophils % % Neutrophils # (1.3-7.7) k/uL Lymphocytes # (1.0-4.8) k/uL Monocytes # (0-1.0) k/uL Eosinophils # (0-0.7) k/uL Basophils # (0-0.2) k/uL Sodium 139 (137-145) mmol/L Potassium 4.5 (3.5-5.1) mmol/L Chloride 108 H (98-107) mmol/L Carbon Dioxide 22 (22-30) mmol/L Anion Gap 9 mmol/L BUN 12 (7-17) mg/dL Creatinine 0.54 (0.52-1.04) mg/dL Est GFR (CKD-EPI)AfAm >90 (>60 ml/min/1.73 sqM) Est GFR (CKD-EPI)NonAf >90 (>60 ml/min/1.73 sqM) Glucose 105 H (74-99) mg/dL Calcium 9.2 (8.4-10.2) mg/dL Total Bilirubin 0.6 (0.2-1.3) mg/dL AST 27 (14-36) U/L ALT 7 (4-34) U/L Alkaline Phosphatase 64 (38-126) U/L Total Protein 7.0 (6.3-8.2) g/dL Albumin 4.5 (3.5-5.0) g/dL HCG, Quant 4731.7 mIU/mL Urine Color Urine Appearance (Clear) Urine pH (5.0-8.0) Ur Specific Irene (1.001-1.035) Urine Protein (Negative) Urine Glucose (UA) (Negative) Urine Ketones (Negative) Urine Blood (Negative) Urine Nitrite (Negative) Urine Bilirubin (Negative) Urine Urobilinogen (<2.0) mg/dL Ur Leukocyte Esterase (Negative) Urine HCG, Qual (Not Detectd) Disposition Clinical Impression: Elevated serum hCG Disposition: HOME SELF-CARE Condition: Good Instructions (If sedation given, give patient instructions): (ED) Additional Instructions: Please repeat beta hCG on Saturday through the outpatient lab. Follow-up with Dr. Herrera for an appointment on Saturday or Saturday. If you have any worsening symptoms such as severe abdominal pain or vaginal bleeding [place] [facility] [place] Is patient prescribed a controlled substance at d/c from ED?: No Referrals: Lynn Clemens MD [Primary Care Provider] - 1-2 days Emiliana Herrera DO [Doctor of Osteopathic Medicine] - 1-2 days Time of Disposition: 21:59
[2020-05-14 20:50] LABS: Basophils # (A) 0.1 k/uL (0-0.2); Basophils % (A) 1 %; Eosinophils # (A) 0.2 k/uL (0-0.7); Eosinophils % (A) 2 %; HCT 39.3 % (34.0-46.0); Lymphocytes # (A) 2.9 k/uL (1.0-4.8); Lymphocytes % (A) 25 %; MCH 29.3 pg (25.0-35.0); MCV 88.7 fL (80.0-100.0); Mean Platelet Volume 7.2; Monocytes # (A) 0.5 k/uL (0-1.0); Monocytes % (A) 4 %; Neutrophils # (A) 7.6 k/uL (1.3-7.7); Neutrophils % (A) 67 %; Platelet Count 282 k/uL (150-450); RBC 4.42 m/uL (3.80-5.40); WBC 11.3 k/uL (3.8-10.6)
[2020-05-14 20:59] LABS: ALT 7 U/L (4-34); AST 27 U/L (14-36); African American GFR (CKD) >90 (>60 ml/min/1.73 sqM); Albumin 4.5 g/dL (3.5-5.0); Alkaline Phosphatase 64 U/L (38-126); Anion Gap 9 mmol/L; Blood Urea Nitrogen 12 mg/dL (7-17); Calcium 9.2 mg/dL (8.4-10.2); Carbon Dioxide 22 mmol/L (22-30); Chloride 108 mmol/L (98-107); Glucose 105 mg/dL (74-99); Non-African American GFR(CKD) >90 (>60 ml/min/1.73 sqM); Potassium 4.5 mmol/L (3.5-5.1); Sodium 139 mmol/L (137-145); Total Bilirubin 0.6 mg/dL (0.2-1.3)
[2020-05-14 21:14] LABS: HCG,Quantitative Serum 4731.7 mIU/mL
[2020-05-14 21:18] VITALS: BP 128/70; PULSE 87; TEMP 98.4
--- NOTE | 2020-05-14 21:20 | US ---
EXAMINATION TYPE: Transabdominal DATE OF EXAM: 05/14/2020 9:00 PM COMPARISON: NONE CLINICAL HISTORY: pain. Low back pain. Positive beta-hCG test. EXAM PERFORMED: Transabdominal (TA) EXAM MEASUREMENTS: GESTATIONAL AGE / DATING Physician Established: Not yet established Dates by LMP: 04/05/2020 (5 weeks/4 days) EDC: 01/10/2021 Dates by First Scan: No previous this is first scan Dates by Current Scan for: Unable to date by today's study MATERNAL ANATOMY Uterus: 7.9 x 4.8 x 6.7 cm Right Ovary: 4.4 x 2.7 x 2.3 cm Left Ovary: 3.9 x 2.2 x 2.9 cm Post CDS / Adnexa: wnl Presence of free fluid: none Presence of subchorionic bleed: 1.2 x 0.5 x 0.7 cm hypoechoic area adjacent to gestational sac. GESTATION / SURVEY MSD: 0.8 cm measures out of range or too small to date. Date of LMP: 04/05/2020 Beta HcG (if available): not available at time of scan Suboptimal as only transabdominal pelvic ultrasound imaging performed. Heterogeneous anteverted uteru s with endometrium thickened up to 22 mm. Oval 1.0 x 0.4 x 0.9 7 cm anechoic area could reflect early gestational sac. Adjacent small hypoechoic area suspicious for adjacent implantation bleeding No yol k sac or pole seen. No free fluid in pelvic cul-de-sac. Both ovaries identified without suspicious extraovarian adnexal lesion. IMPRESSION: Suspect too early to visualize intrauterine . However spontaneous is in the differential and ectopic is not entirely excluded. Serial beta-hCG and ultrasound foll ow-up advised.
== END 2020-05-14 22:06 | disposition home or self-care (01) ==
LOC: EC 18:54
DX: O99.511 Diseases of the respiratory system complicating pregnancy, first trimester (principal); J45.909 Unspecified asthma, uncomplicated; R79.89 Other specified abnormal findings of blood chemistry; M54.5 Low back pain; Z3A.01 Less than 8 weeks gestation of pregnancy
CPT/HCPCS: 36415; 76801; 80053; 81003; 81025; 84702; 85025; 99284

== ENCOUNTER → 2020-05-16 | Outpatient (CLI) | payer OTHER | END | disposition home or self-care (01) | LOC: LABWHC1 12:43 | PROVIDERS: ATTEND Physician Assistant Medical | DX: R10.9 Unspecified abdominal pain (principal); N93.9 Abnormal uterine and vaginal bleeding, unspecified; O02.81 Inappropriate change in quantitative human chorionic gonadotropin (hCG) in early pregnancy | CPT/HCPCS: 36415; 84702 ==

== ENCOUNTER 2020-10-14 00:40 | Outpatient (CLI) | payer OTHER ==
[2020-10-14] MEDS ORDERED: FAMOTIDINE 20 MG TAB PO STA (01:23)
[2020-10-14 03:11] VITALS: BP 114/68; PULSE 95; RESP 16; TEMP 96.4
--- NOTE | 2020-10-21 15:40 | P.MSEPDOC ---
Presenting Problems - Arrival Data Date of Arrival on Unit: 10/14/20 Time of Arrival on Unit: 00:40 Mode of Transport: Wheelchair - Complaint OB-Reason for Admission/Chief Complaint: Other Comment: patient presents to triage stating that she has had upper abdominal and back. pain rated at a 6/10. patient states that the pain started at 4:58pm on 10/13/20. patient also reports that she has been having nausea but no vommiting. Patient. states that she did have [employer] earlier today, but typically food does not upset her. stomach. Medical History - Information : 3 Para: 1 Term: 1 : 0 Abortions: Spontaneous or Elective: 1 Number of Living Children: 1 - Gestational Age Gestational Age by NEHEMIAH (wks/days): 27 Weeks and 1 Days Review of Systems - Review of Systems Constitutional: No problems Breast: No problems ENT: No problems Cardiovascular: No problems Respiratory: No problems Gastrointestinal: No problems Genitourinary: No problems Musculoskeletal: No problems Neurological: No problems Skin: No problems Vital Signs - Temperature Temperature: 96.4 F Temperature Source: Temporal Artery Scan - Pulse Right Brachial Pulse Rate: 95 Pulse Assessment Method: Automatic Cuff - Respirations Respiratory Rate: 16 Oxygen Delivery Method: Room Air O2 Sat by Pulse Oximetry: 100 - Blood Pressure Right Arm Blood Pressure: 114/68 Blood Pressure Mean: 83 Blood Pressure Source: Automatic Cuff Medical Screen Scoring (Pre) - Cervical Exam Dilation: Exam Deferred Effacement: Exam Deferred Membranes: Intact - Uterine Contractions Frequency: N/A, Scheduled / = 6 Intensity: N/A - Maternal Vital Signs Maternal Temperature: N/A Signs of Preeclampsia: N/A Maternal Respirations: N/A - Maternal Trauma Maternal Trauma: N/A - Assessment - Baby A Baseline FHR: 145 Heart Rate - NICHD Category: Category I (Normal) = 0 Position: N/A Station: N/A - Total Score - Baby A Total Score - Baby A: 6 - Total Score - Baby B Total Score - Baby B: 6 - Total Score - Baby C Total Score - Baby C: 6 - Level of Risk - Baby A Level of Risk - Baby A: Medium (6-9) - Level of Risk - Baby B Level of Risk - Baby B: Medium (6-9) - Level of Risk - Baby C Level of Risk - Baby C: Medium (6-9) Physician Notification (Pre) - Physician Notified Physician Notified Date: 10/14/20 Physician Notified Time: 01:17 New Order Received: Yes - Notification Comment Comment: report given to Dr. Fernandes on abdominal/ back pain and nausea, vitals wnl,. tracing, and no contractions noted. Dr. Fernandes ordered pepcid 20mg po to be. given. Patient to follow up in office tomorrow for work up of gallbladder and liver. no. further ordered recieved. Disposition - Disposition OB Disposition: Discharge to home Discharge Date: 10/14/20 Discharge Time: 01:45 I agree with the RN Medical Screening Exam: Yes Physician's MSE Comment: Patient was not seen or examined by myself Case reviewed; plan agreed upon as documented in EMR&OBIX.: Yes Diagnosis: PAIN, UNSPECIFIED
== END 2020-10-14 01:45 | disposition home or self-care (01) ==
LOC: FBPOP 00:40
PROVIDERS: ATTEND Obstetrics & Gynecology Obstetrics
DX: O99.891 Other specified diseases and conditions complicating pregnancy (principal); M54.9 Dorsalgia, unspecified; O26.892 Other specified pregnancy related conditions, second trimester; R10.10 Upper abdominal pain, unspecified; Z3A.27 27 weeks gestation of pregnancy
CPT/HCPCS: 99213

== ENCOUNTER 2020-12-03 10:03 | Outpatient (CLI) | payer OTHER ==
[2020-12-03] MEDS: LACTATED RINGERS 1,000 ML IV SCH ×2 (10:33→11:00)
[2020-12-03 10:53] LABS: Glucose,Whole Blood 83 mg/dL (75-99)
[2020-12-03] MEDS: TERBUTALINE 1 MG/ML VIAL SQ PRN ×3 (11:31→12:07)
[2020-12-03 12:15] VITALS: BP 123/69; PULSE 101; RESP 18; TEMP 97.2
--- NOTE | 2020-12-08 17:41 | P.MSEPDOC ---
Presenting Problems - Arrival Data Date of Arrival on Unit: 12/03/20 Time of Arrival on Unit: 09:55 Mode of Transport: Ambulatory - Complaint OB-Reason for Admission/Chief Complaint: Pain Comment: pelvic pressure, back pain, nausea & dizziness Medical History - Information : 2 Para: 1 Term: 1 : 0 Abortions: Spontaneous or Elective: 0 Number of Living Children: 1 - Gestational Age Gestational Age by NEHEMIAH (wks/days): 34 Weeks and 2 Days Review of Systems - Review of Systems Constitutional: No problems Breast: No problems ENT: No problems Cardiovascular: No problems Respiratory: No problems Gastrointestinal: No problems Genitourinary: No problems Musculoskeletal: No problems Neurological: No problems Skin: No problems Vital Signs - Temperature Temperature: 97.2 F Temperature Source: Temporal Artery Scan - Pulse Right Sitting Brachial Pulse Rate: 101 Pulse Assessment Method: Automatic Cuff - Respirations Respiratory Rate: 18 Oxygen Delivery Method: Room Air O2 Sat by Pulse Oximetry: 98 - Blood Pressure Right Arm Sitting Blood Pressure: 123/69 Blood Pressure Mean: 87 Blood Pressure Source: Automatic Cuff Medical Screen Scoring (Pre) - Cervical Exam Dilation: 1-3 cm = 1 - Uterine Contractions Frequency: < 36 weeks = 6 Duration: > 40 seconds = 2 Intensity: N/A - Maternal Vital Signs Maternal Temperature: N/A Maternal Blood Pressure: N/A Signs of Preeclampsia: Nausea/Vomiting = 1 Maternal Respirations: N/A - Maternal Trauma Maternal Trauma: N/A - Assessment - Baby A Baseline FHR: 135 Heart Rate - NICHD Category: Category I (Normal) = 0 NST: Reactive Position: N/A - Total Score - Baby A Total Score - Baby A: 10 - Total Score - Baby B Total Score - Baby B: 10 - Total Score - Baby C Total Score - Baby C: 10 - Level of Risk - Baby A Level of Risk - Baby A: High (10+) - Level of Risk - Baby B Level of Risk - Baby B: High (10+) - Level of Risk - Baby C Level of Risk - Baby C: High (10+) Physician Notification (Pre) - Physician Notified Physician Notified Date: 12/03/20 Physician Notified Time: 11:00 New Order Received: Yes - Notification Comment Comment: IV fluids, FFN, repeat sterile vaginal exam, Terb protocol Medical Screen Scoring (Post) - Cervical Exam Dilation: 1-3 cm = 1 - Uterine Contractions Frequency: > 5 minutes apart = 1 Duration: > 40 seconds = 2 Intensity: N/A - Maternal Vital Signs Maternal Temperature: N/A Maternal Blood Pressure: N/A Signs of Preeclampsia: N/A Maternal Respirations: N/A - Pain Assessment Pain Scale Used: Numeric (1 - 10) Pain Intensity: 0 Pain Management Goal: 3 - Maternal Trauma Maternal Trauma: N/A - Assessment - Baby A Heart Rate: 135 Heart Rate - NICHD Category: Category I (Normal) = 0 - Total Score Total Score - Baby A: 4 Total Score - Baby B: 4 Total Score - Baby C: 4 - Post Treatment Level of Risk Post Treatment Level of Risk - Baby A: Low (0-5) Post Treatment Level of Risk - Baby B: Low (0-5) Post Treatment Level of Risk - Baby C: Low (0-5) Physician Notification (Post) - Physician Notified Physician Notified Date: 12/03/20 Physician Notified Time: 12:45 Physician/Practitioner Notified:: dahlia New Order Received: Yes - Notification Comment Comment: PT denies pain or contractions. FFN & covid neg. Terb x3. Dc home, pelvic rest and off work until seen in the office next week. Disposition - Disposition OB Disposition: Discharge to home Discharge Date: 12/03/20 Discharge Time: 12:50 I agree with the RN Medical Screening Exam: Yes Case reviewed; plan agreed upon as documented in EMR&OBIX.: Yes Diagnosis: FALSE LABOR BEFORE 37 COMPLETED WEEKS OF GEST, THIRD TRI
== END 2020-12-03 12:50 | disposition home or self-care (01) ==
LOC: FBPOP 10:03
PROVIDERS: ATTEND Obstetrics & Gynecology Obstetrics
DX: O47.03 False labor before 37 completed weeks of gestation, third trimester (principal); Z3A.34 34 weeks gestation of pregnancy
CPT/HCPCS: 59025; 96360; 96361; 96372; 82731; 87635; G0463; J3105; 99214

== ENCOUNTER 2021-01-05 06:05 | Inpatient (IN) | payer OTHER ==
[~2021-01-05 06:05] MED LIST changes: +ROPIVACAINE 5MG/ML 20ML VIAL ONE; -SODIUM CHLORIDE 0.9% 1,000 ML IV SCH; +SODIUM CHLORIDE 0.9% 100 ML BAG ONE; +fentaNYL (PF) 50 MCG/ML 5 ML AMP ONE
[2021-01-05] MEDS ORDERED: LIDOCAINE 0.5% (PF) 5 MG/ML (50 ML SDV) SQ PRN (06:37)
[2021-01-05] MEDS ORDERED: TERBUTALINE 1 MG/ML VIAL SQ PRN (06:37)
[2021-01-05] MEDS ORDERED: AMPICILLIN 2,000 MG in SODIUM CHLORIDE 0.9% 100 ML IVPB STA (06:37)
[2021-01-05] MEDS ORDERED: CARBOPROST TROMETHAMINE 250 MCG/ML 1 ML AMP IM PRN (06:37)
[2021-01-05] MEDS ORDERED: METHYLERGONOVINE 0.2 MG/ML 1 ML AMP IM PRN (06:37)
[2021-01-05] MEDS ORDERED: OXYTOCIN 10 UNIT/ML 1 ML VIAL IM PRN (06:37)
[2021-01-05] MEDS ORDERED: OXYTOCIN 30 UNITS/500 ML NS 30 UNIT in SALINE 1 500ML.BAG IV SCH ×2 (06:45→15:00)
[2021-01-05] MEDS: LACTATED RINGERS 1,000 ML IV SCH ×3 (06:54→11:12)
[2021-01-05 07:36] LABS: Basophils % (A) 0 %; Eosinophils # (A) 0.1 k/uL (0-0.7); Eosinophils % (A) 1 %; HCT 36.5 % (34.0-46.0); HGB 12.4 gm/dL (11.4-16.0); Lymphocytes # (A) 2.3 k/uL (1.0-4.8); Lymphocytes % (A) 21 %; MCH 30.2 pg (25.0-35.0); MCHC 33.9 g/dL (31.0-37.0); MCV 89.1 fL (80.0-100.0); Mean Platelet Volume 8.1; Monocytes # (A) 0.7 k/uL (0-1.0); Monocytes % (A) 7 %; Neutrophils # (A) 7.5 k/uL (1.3-7.7); Neutrophils % (A) 69 %; Platelet Count 259 k/uL (150-450); RDW 13.4 % (11.5-15.5); WBC 10.9 k/uL (3.8-10.6)
[2021-01-05] MEDS ORDERED: BUTORPHANOL 1 MG/ML 1 ML VIAL IV PRN (08:38)
--- NOTE | 2021-01-05 08:38 | P.HPOB ---
History of Present Illness H&P Date: 01/05/21 Chief Complaint: IUP at 39 0/7 weeks This is a 25-year-old 011 at 39 0/7 weeks with an estimated due date of 01/12 that presents for elective induction of labor. Patient has been receiving routine care which has been essentially uncomplicated. Patient doesn't have a history of HSV for which she has been taking Valtrex since weeks. This morning patient does note good movement and occasional contractions but denies loss of fluid or vaginal bleeding. On bloodwork this patient has a blood type of O+, rubella status immune, hepatitis B surface antigen negative, HIV negative, RPR nonreactive, GBS is positive. Review of Systems Constitutional: Denies chills, Denies fatigue, Denies fever Ears, nose, mouth and throat: Denies headache Cardiovascular: Reports leg edema Respiratory: Denies dyspnea Gastrointestinal: Denies constipation, Denies diarrhea, Denies nausea, Denies vomiting Genitourinary: Reports Past Medical History Past Medical History: Asthma Additional Past Medical History / Comment(s): syncope, IBS, tachycardia during , hypoglycemia History of Any Multi-Drug Resistant Organisms: None Reported Past Surgical History: Adenoidectomy, Tonsillectomy Additional Past Surgical History / Comment(s): childhood Past Anesthesia/Blood Transfusion Reactions: No Reported Reaction Past Psychological History: Anxiety, Depression Additional Psychological History / Comment(s): NOT ON ANY RX Smoking Status: Never smoker Past Alcohol Use History: None Reported Past Drug Use History: None Reported - Past Family History Mother Family Medical History: Diabetes Mellitus, Hypertension, Vascular Disorder Additional Family Medical History / Comment(s): crohns, hernia, neuropathy Medications and Allergies Home Medications Medication Instructions Recorded Confirmed Type Pnv No.95/Ferrous Fum/Folic AC 1 tab PO DAILY 11/14/19 01/05/21 History [ Multivitamin Tablet] Albuterol Inhaler [Ventolin Hfa 2 puff INHALATION ONCE 12/03/20 01/05/21 History Inhaler] valACYclovir [Valtrex] 500 mg PO DAILY 01/05/21 01/05/21 History Allergies Allergy/AdvReac Type Severity Reaction Status Date / Time No Known Allergies Allergy Verified 01/05/21 06:19 Exam Osteopathic Statement: *. No significant issues noted on an osteopathic structural exam other than those noted in the History and Physical/Consult. Vital Signs Temp Pulse Resp BP Pulse Ox 01/05/21 06:19 97.2 F L 120 H 18 131/76 97 Intake and Output 01/04/21 01/05/21 01/05/21 22:59 06:59 14:59 Other: Weight 90.718 kg Targeted physical exam is performed in this date and negative retoucher a well-nourished well-developed female in no acute distress, breathing is noted to be nonlabored, heart has a regular rate and rhythm, abdomen is gravid and appropriate for gestational age, on cervical exam she is 2/70 and -2 station amniotomy is performed and clear fluid was obtained. Results Result Diagrams: 01/05/21 06:30 Abnormal Lab Results - Last 24 Hours (Table) 01/05/21 Range/Units 06:30 WBC 10.9 H (3.8-10.6) k/uL Assessment and Plan (1) Term Current Visit: No Status: Acute Code(s): Z34.80 - ENCOUNTER FOR SUPRVSN OF NORMAL , UNSP TRIMESTER SNOMED Code(s): 69128120 (2) Positive GBS test Current Visit: Yes Status: Acute Code(s): B95.1 - STREPTOCOCCUS, GROUP B, C AUSING DISEASES CLASSD ELSR SNOMED Code(s): 205968380 Plan: This 3 para 1011 at 39-0/7 weeks presents to labor and delivery for elec tive induction of labor, Pitocin induction of labor is begun per hospital protocol. Patient is offered Stadol versus epidural and she will consider both. Anticipate spontaneous vaginal delivery later today.
[2021-01-05] MEDS ORDERED: SODIUM CHLORIDE 0.9% 100 ML BAG ONE (09:28)
[2021-01-05] MEDS ORDERED: fentaNYL (PF) 50 MCG/ML 5 ML AMP ONE (09:28)
[2021-01-05] MEDS ORDERED: ROPIVACAINE 5MG/ML 20ML VIAL ONE (09:28)
[2021-01-05] MEDS: AMPICILLIN 1,000 MG in SODIUM CHLORIDE 0.9% 50 ML IVPB SCH (11:12)
[2021-01-05] MEDS ORDERED: BENZOCAINE/MENTHOL SPRAY 1 GM/SPRAY AEROSOL TOPICAL PRN (14:52)
[2021-01-05] MEDS ORDERED: SIMETHICONE 80 MG CHEWABLE PO PRN (14:52)
[2021-01-05] MEDS ORDERED: ZOLPIDEM 5 MG TAB PO PRN (14:52)
[2021-01-05] MEDS ORDERED: diphenhydrAMINE 50 MG/ML 1 ML VIAL IVP PRN ×2 (14:52)
[2021-01-05] MEDS ORDERED: diphenhydrAMINE 25 MG CAP PO PRN (14:52)
[2021-01-05] MEDS ORDERED: LANOLIN CREAM 5 GM TUBE TOPICAL PRN (14:52)
[2021-01-05] MEDS ORDERED: HYDROCORTISONE 2.5% RECTAL CREAM 30 GM TUBE RECTAL PRN (14:52)
[2021-01-05] MEDS ORDERED: diphenhydrAMINE 50 MG CAP PO PRN (14:52)
--- NOTE | 2021-01-05 14:54 | P.PROBDLV ---
Vaginal Delivery Note - . Vaginal Delivery Note: This is a 25-year-old 011 at 39-0/7 weeks that presented to labor and delivery this morning for elective induction of labor. Patient had been receiving routine care for further details on this patient please see the dictated history and physical. Patient was admitted to labor and delivery Pitocin induction of labor was begun per hospital protocol. Amniotomy was performed and clear fluid was obtained. Patient progressed through labor eventually becoming uncomfortable and requesting epidural placement. Epidural was placed without difficulty by the anesthesia department. Patient progressed to complete began pushing and had a normal spontaneous vaginal delivery of a viable female at 1444, weight of 7 lbs. 15 oz. with Apgars of 9 and 9 at one and 5 minutes respectively. After two-minute delayed the umbo cord was doubly clamped and cut and the placenta was delivered spontaneously intact with three-vessel cord being noted. The uterus is noted to be firm and below the umbilicus. Estimated blood loss 200 mL, the bladder was then drained for 100 mL of clear yellow urine. Inspection the patient's vaginal vault no lacerations were appreciated. All counts were noted to be correct times through the end of the delivery. Patient and tolerated delivery well and are resting comfortably.
[2021-01-05] MEDS: IBUPROFEN 600 MG TAB PO SCH ×2 (16:06→23:30)
[2021-01-05 20:51] VITALS: RESP 16
[2021-01-05] MEDS: ACETAMINOPHEN TAB 325 MG TAB PO PRN (21:04)
[2021-01-06] MEDS: SENNOSIDES-DOCUSATE SODIUM 1 EACH TAB PO SCH ×2 (00:18→08:48)
[2021-01-06] MEDS: ACETAMINOPHEN TAB 325 MG TAB PO PRN (06:03)
[2021-01-06] MEDS: IBUPROFEN 600 MG TAB PO SCH ×2 (07:14→09:36)
[2021-01-06 09:36] VITALS: BP 140/78; PULSE 112; TEMP 98.2
[2021-01-06] MEDS: AMPICILLIN 1,000 MG in SODIUM CHLORIDE 0.9% 50 ML IVPB SCH (09:36)
--- NOTE | 2021-01-06 09:37 | P.DS ---
Providers Date of admission: 01/05/21 06:05 Expected date of discharge: 01/06/21 Attending physician: Emiliana Herrera Primary care physician: Stated None - Discharge Diagnosis(es) (1) Term Current Visit: No Status: Acute (2) Positive GBS test Current Visit: Yes Status: Acute (3) Status post vaginal delivery Current Visit: No Status: Acute Hospital Course: This is a 25-year-old 011 at 39 0/7 weeks that presented to labor and delivery yesterday for scheduled induction of labor, elective. Patient had been receiving routine care which had been essentially uncomplicated. 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 For further details on this patient please see the dictated history and physical. Patient was admitted to labor and delivery and Pitocin induction of labor was begun. Once regular contractions were noted amniotomy is performed and clear fluid was obtained. Patient became uncomfortable and did request epidural placement. Epidural was placed without difficulty by the anesthesia department. Patient progressed to complete began pushing and had a normal spontaneous vaginal delivery of a viable female infant at 1444, weight of 7 lbs. 15 oz. Apgars were 9 and 9 at one and 5 metastases respectively. Patient's course has been essentially uneventful. This post day #1 she is a billing and voiding without difficulty. She is tolerating a regular diet without nausea or vomiting. She states her pain is well- controlled. She is bottle feeding. She would like discharge home at 24 hours. Patient Condition at Discharge: Good Plan - Discharge Summary New Discharge Prescriptions: No Action Pnv No.95/Ferrous Fum/Folic AC [ Multivitamin Tablet] 1 tab PO DAILY Albuterol Inhaler [Ventolin Hfa Inhaler] 2 puff INHALATION ONCE valACYclovir [Valtrex] 500 mg PO DAILY Discharge Medication List Pnv No.95/Ferrous Fum/Folic AC [ Multivitamin Tablet] 1 tab PO DAILY 11/14/19 [History] Albuterol Inhaler [Ventolin Hfa Inhaler] 2 puff INHALATION ONCE 12/03/20 [History] valACYclovir [Valtrex] 500 mg PO DAILY 01/05/21 [History] Follow up Appointment(s)/Referral(s): Emiliana Herrera DO [Doctor of Osteopathic Medicine] - 4 Weeks Patient Instructions/Handouts: Vaginal Delivery (GEN), Vaginal Delivery (DC)
== END 2021-01-06 15:30 | disposition home or self-care (01) | DRG 807 ==
LOC: 4FBP 06:05
PROVIDERS: ADMIT Obstetrics & Gynecology Obstetrics; ATTEND Obstetrics & Gynecology Obstetrics
PROC: 10E0XZZ Delivery of Products of Conception, External Approach (ICD-10-PCS; principal; 2021-01-05)
DX: O99.824 Streptococcus B carrier state complicating childbirth (principal); Z37.0 Single live birth; O99.52 Diseases of the respiratory system complicating childbirth; J45.909 Unspecified asthma, uncomplicated; Z3A.39 39 weeks gestation of pregnancy; Z79.899 Other long term (current) drug therapy; Z82.49 Family history of ischemic heart disease and other diseases of the circulatory system; Z83.3 Family history of diabetes mellitus
CPT/HCPCS: 85025; 86850; 86900; 86901

== ENCOUNTER 2021-01-08 10:42 | Emergency (ER) | payer OTHER ==
[2021-01-08 10:56] VITALS: RESP 18; TEMP 98.5
[2021-01-08] MEDS ORDERED: ONDANSETRON 4 MG/2 ML VIAL IVP STA (11:13)
[2021-01-08] MEDS ORDERED: SODIUM CHLORIDE 0.9% 2,000 ML IV STA (11:13)
--- NOTE | 2021-01-08 11:32 | ED ---
General Adult HPI - General Chief complaint: Nausea/Vomiting/Diarrhea Stated complaint: Covid Symptoms, NVD, Fever Time Seen by Provider: 01/08/21 10:57 Source: patient, RN notes reviewed Mode of arrival: ambulatory Limitations: no limitations - History of Present Illness Initial comments: 25-year-old female presents emergency Department with chief complaint of abdominal pain, nausea vomiting diarrhea. Patient states started overnight has been severe complaint of body aches. Patient states her has similar symptoms. No reported fever patient states that she did have vaginal delivery uncomplicated 3 days ago. She states she has mild vaginal bleeding which is not worsening no dysuria no hematuria no cough or cold-like symptoms - Related Data Home Medications Medication Instructions Recorded Confirmed Pnv No.95/Ferrous Fum/Folic AC 1 tab PO DAILY 11/14/19 01/05/21 [ Multivitamin Tablet] Albuterol Inhaler [Ventolin Hfa 2 puff INHALATION ONCE 12/03/20 01/05/21 Inhaler] valACYclovir [Valtrex] 500 mg PO DAILY 01/05/21 01/05/21 Previous Rx's Medication Instructions Recorded Ondansetron Odt [Zofran Odt] 4 mg PO Q8HR PRN #10 tab 01/08/21 Allergies Allergy/AdvReac Type Severity Reaction Status Date / Time No Known Allergies Allergy Verified 01/08/21 10:56 Review of Systems ROS Statement: Those systems with pertinent positive or pertinent negative responses have been documented in the HPI. ROS Other: All systems not noted in ROS Statement are negative. Past Medical History Past Medical History: Asthma Additional Past Medical History / Comment(s): syncope, IBS, tachycardia during , hypoglycemia History of Any Multi-Drug Resistant Organisms: None Reported Past Surgical History: Adenoidectomy, Tonsillectomy Additional Past Surgical History / Comment(s): childhood Past Anesthesia/Blood Transfusion Reactions: No Reported Reaction Past Psychological History: Anxiety, Depression Smoking Status: Never smoker Past Alcohol Use History: None Reported Past Drug Use History: None Reported - Past Family History Mother Family Medical History: Diabetes Mellitus, Hypertension, Vascular Disorder Additional Family Medical History / Comment(s): crohns, hernia, neuropathy General Exam Limitations: no limitations General appearance: alert, in no apparent distress Head exam: Present: atraumatic, normocephalic, normal inspection Eye exam: Present: normal appearance, PERRL, EOMI. Absent: scleral icterus, conjunctival injection, periorbital swelling Neck exam: Present: normal inspection, full ROM. Absent: tenderness, meningismus, lymphadenopathy Respiratory exam: Present: normal lung sounds bilaterally. Absent: respiratory distress, wheezes, rales, rhonchi, stridor Cardiovascular Exam: Present: normal rhythm, tachycardia, normal heart sounds. Absent: systolic murmur, diastolic murmur, rubs, gallop, clicks GI/Abdominal exam: Present: soft, tenderness, normal bowel sounds. Absent: distended, guarding, rebound, rigid Back exam: Absent: CVA tenderness (R), CVA tenderness (L) Neurological exam: Present: alert Skin exam: Present: warm, dry, intact, normal color. Absent: rash Course Vital Signs 01/08/21 01/08/21 01/08/21 10:51 11:34 12:26 Temperature 98.5 F Pulse Rate 147 H 127 H 120 H Respiratory 18 18 18 Rate Blood Pressure 106/61 110/69 112/63 O2 Sat by Pulse 96 97 99 Oximetry EKG Findings - EKG Comments: EKG Findings:: EKG performed at 11:47 sinus tachycardia with a rate of 106 ND 134 QRS 84 QT/QTC 342/454 - EKG Results: EKG: interpreted by SAAD Medical Decision Making - Medical Decision Making 25-year-old female presented for nausea vomiting diarrhea. Symptoms started late last night is some her symptoms she is improved after IV fluids are rate of EKG is improved after IV fluids patient currently states she feels better over discharged in stable condition. - Lab Data Result diagrams: 01/08/21 11:20 01/08/21 11:20 Lab Results 01/08/21 01/08/21 01/08/21 Range/Units 11:20 11:20 12:34 WBC 9.6 (3.8-10.6) k/uL RBC 4.42 (3.80-5.40) m/uL Hgb 13.3 (11.4-16.0) gm/dL Hct 39.2 (34.0-46.0) % MCV 88.7 (80.0-100.0) fL MCH 30.1 (25.0-35.0) pg MCHC 33.9 (31.0-37.0) g/dL RDW 13.5 (11.5-15.5) % Plt Count 300 (150-450) k/uL MPV 7.8 Neutrophils % 87 % Lymphocytes % 6 % Monocytes % 5 % Eosinophils % 1 % Basophils % 0 % Neutrophils # 8.3 H (1.3-7.7) k/uL Lymphocytes # 0.6 L (1.0-4.8) k/uL Monocytes # 0.5 (0-1.0) k/uL Eosinophils # 0.1 (0-0.7) k/uL Basophils # 0.0 (0-0.2) k/uL Sodium 140 (137-145) mmol/L Potassium 4.1 (3.5-5.1) mmol/L Chloride 111 H (98-107) mmol/L Carbon Dioxide 19 L (22-30) mmol/L Anion Gap 10 mmol/L BUN 11 (7-17) mg/dL Creatinine 0.58 (0.52-1.04) mg/dL Est GFR (CKD-EPI)AfAm >90 (>60 ml/min/1.73 sqM) Est GFR (CKD-EPI)NonAf >90 (>60 ml/min/1.73 sqM) Glucose 112 H (74-99) mg/dL Calcium 8.6 (8.4-10.2) mg/dL Total Bilirubin 0.6 (0.2-1.3) mg/dL AST 22 (14-36) U/L ALT 8 (4-34) U/L Alkaline Phosphatase 139 H (38-126) U/L Total Protein 6.2 L (6.3-8.2) g/dL Albumin 3.6 (3.5-5.0) g/dL Amylase 58 (30-110) U/L Lipase 43 (23-300) U/L Urine Color Yellow Urine Appearance Cloudy H (Clear) Urine pH 6.0 (5.0-8.0) Ur Specific Kimball 1.043 H (1.001-1.035) Urine Protein 1+ H (Negative) Urine Glucose (UA) Negative (Negative) Urine Ketones Trace H (Negative) Urine Blood Large H (Negative) Urine Nitrite Negative (Negative) Urine Bilirubin Negative (Negative) Urine Urobilinogen <2.0 (<2.0) mg/dL Ur Leukocyte Esterase Trace H (Negative) Urine RBC 113 H (0-5) /hpf Urine WBC 11 H (0-5) /hpf Ur Squamous Epith Cells 11 H (0-4) /hpf Urine Mucus Moderate H (None) /hpf Disposition Clinical Impression: Gastroenteritis Disposition: HOME SELF-CARE Condition: Stable Instructions (If sedation given, give patient instructions): Gastroenteritis (ED) Additional Instructions: Please return to the Emergency Department if symptoms worsen or any other concerns. Prescriptions: Ondansetron Odt [Zofran Odt] 4 mg PO Q8HR PRN #10 tab PRN Reason: Nausea Is patient prescribed a controlled substance at d/c from ED?: No Referrals: Lynn Clemens MD [Primary Care Provider] - 1-2 days Time of Disposition: 13:03
[2021-01-08 11:46] LABS: Basophils % (A) 0 %; Eosinophils # (A) 0.1 k/uL (0-0.7); Eosinophils % (A) 1 %; HCT 39.2 % (34.0-46.0); HGB 13.3 gm/dL (11.4-16.0); Lymphocytes # (A) 0.6 k/uL (1.0-4.8); Lymphocytes % (A) 6 %; MCH 30.1 pg (25.0-35.0); MCHC 33.9 g/dL (31.0-37.0); MCV 88.7 fL (80.0-100.0); Mean Platelet Volume 7.8; Monocytes # (A) 0.5 k/uL (0-1.0); Monocytes % (A) 5 %; Neutrophils # (A) 8.3 k/uL (1.3-7.7); Neutrophils % (A) 87 %; Platelet Count 300 k/uL (150-450); RBC 4.42 m/uL (3.80-5.40); RDW 13.5 % (11.5-15.5); WBC 9.6 k/uL (3.8-10.6)
[2021-01-08 11:55] LABS: ALT 8 U/L (4-34); AST 22 U/L (14-36); African American GFR (CKD) >90 (>60 ml/min/1.73 sqM); Albumin 3.6 g/dL (3.5-5.0); Alkaline Phosphatase 139 U/L (38-126); Amylase 58 U/L (30-110); Anion Gap 10 mmol/L; Blood Urea Nitrogen 11 mg/dL (7-17); Calcium 8.6 mg/dL (8.4-10.2); Carbon Dioxide 19 mmol/L (22-30); Chloride 111 mmol/L (98-107); Glucose 112 mg/dL (74-99); Lipase 43 U/L (23-300); Non-African American GFR(CKD) >90 (>60 ml/min/1.73 sqM); Potassium 4.1 mmol/L (3.5-5.1); Sodium 140 mmol/L (137-145); Total Bilirubin 0.6 mg/dL (0.2-1.3); Total Protein 6.2 g/dL (6.3-8.2)
[2021-01-08 12:48] LABS: Appearance,Urine Cloudy (Clear); Bilirubin,Urine Negative (Negative); Blood,Urine Large (Negative); Color,Urine Yellow; Glucose,Urine (UA) Negative (Negative); Ketones,Urine Trace (Negative); Leukocyte Esterase,Urine Trace (Negative); Mucus,Urine Moderate /hpf; Nitrite,Urine Negative (Negative); Protein,Urine 1+ (Negative); RBC,Urine 113 /hpf (0-5); Specific Gravity,Urine 1.043 (1.001-1.035); Squamous Epithelial Cell,Urine 11 /hpf (0-4); Urobilinogen,Urine <2.0 mg/dL (<2.0); WBC,Urine 11 /hpf (0-5)
[2021-01-08 13:29] VITALS: BP 103/68; PULSE 119
== END 2021-01-08 13:29 | disposition home or self-care (01) ==
LOC: EC 10:42
DX: K52.9 Noninfective gastroenteritis and colitis, unspecified (principal); J45.909 Unspecified asthma, uncomplicated; F32.9 Major depressive disorder, single episode, unspecified; Z90.09 Acquired absence of other part of head and neck
CPT/HCPCS: 36415; 93005; 80053; 82150; 83690; 85025; 81001; 87086; 99284; 96374; J2405

== ENCOUNTER 2021-06-21 08:53 | Emergency (ER) | payer OTHER ==
[2021-06-21 09:07] VITALS: BP 111/74; PULSE 100; RESP 18; TEMP 98.4
--- NOTE | 2021-06-21 10:12 | ED ---
General Adult HPI - General Source: patient, RN notes reviewed Mode of arrival: ambulatory Limitations: no limitations <Rian Turk - Last Filed: 06/21/21 10:09> <Monica Florez - Last Filed: 07/02/21 13:42> - General Chief complaint: Upper Respiratory Infection Stated complaint: cough/diarrhea Time Seen by Provider: 06/21/21 09:09 - History of Present Illness Initial comments: 26-year-old female presents to the emergency room for a chief complaint of covid symptoms. States that she has not felt well for 6 days now. States that she initially had a fever cough and congestion as well as diarrhea. Fevers have resolved and her symptoms have been improving. However her came to the ER today and was diagnosed with coronavirus the patient wanted to be tested. Patient denies any shortness of breath or chest pain.Patient has no other complaints at this time including shortness of breath, chest pain, abdominal pain, nausea or vomiting, headache, or visual changes. (Rian Turk) - Related Data Home Medications Medication Instructions Recorded Confirmed Pnv No.95/Ferrous Fum/Folic AC 1 tab PO DAILY 11/14/19 01/05/21 [ Multivitamin Tablet] Albuterol Inhaler [Ventolin Hfa 2 puff INHALATION ONCE 12/03/20 01/05/21 Inhaler] valACYclovir [Valtrex] 500 mg PO DAILY 01/05/21 01/05/21 Previous Rx's Medication Instructions Recorded Ondansetron Odt [Zofran Odt] 4 mg PO Q8HR PRN #10 tab 01/08/21 Allergies Allergy/AdvReac Type Severity Reaction Status Date / Time No Known Allergies Allergy Verified 06/21/21 09:04 Review of Systems ROS Other: All systems not noted in ROS Statement are negative. <Rian Turk - Last Filed: 06/21/21 10:09> ROS Other: All systems not noted in ROS Statement are negative. <Monica Florez - Last Filed: 07/02/21 13:42> ROS Statement: Those systems with pertinent positive or pertinent negative responses have been documented in the HPI. Past Medical History Past Medical History: Asthma Additional Past Medical History / Comment(s): syncope, IBS, tachycardia during , hypoglycemia History of Any Multi-Drug Resistant Organisms: None Reported Past Surgical History: Adenoidectomy, Tonsillectomy Additional Past Surgical History / Comment(s): childhood Past Anesthesia/Blood Transfusion Reactions: No Reported Reaction Past Psychological History: Anxiety, Depression Smoking Status: Never smoker Past Alcohol Use History: None Reported Past Drug Use History: None Reported - Past Family History Mother Family Medical History: Diabetes Mellitus, Hypertension, Vascular Disorder Additional Family Medical History / Comment(s): crohns, hernia, neuropathy <Rian Turk - Last Filed: 06/21/21 10:09> General Exam Limitations: no limitations General appearance: alert, in no apparent distress Head exam: Present: atraumatic Eye exam: Present: normal appearance, PERRL, EOMI ENT exam: Present: normal exam, mucous membranes moist Neck exam: Present: normal inspection, full ROM Respiratory exam: Present: normal lung sounds bilaterally. Absent: respiratory distress, wheezes Cardiovascular Exam: Present: regular rate, normal rhythm, normal heart sounds GI/Abdominal exam: Present: soft. Absent: distended, tenderness <Rian Turk - Last Filed: 06/21/21 10:09> Course Vital Signs 06/21/21 09:04 Temperature 98.4 F Pulse Rate 100 Respiratory 18 Rate Blood Pressure 111/74 O2 Sat by Pulse 97 Oximetry Medical Decision Making <Rian Turk - Last Filed: 06/21/21 10:09> <Monica Florez - Last Filed: 07/02/21 13:42> - Medical Decision Making Vitals are stable. Patient well-appearing. No SOB. Patient did test positive today. Patient refuses antibodies stating she does not feel like she needs them and is aware that it is a time sensitive infusion. Patient can be discharged home to follow up with primary care. Will return here for any worsening symptoms or shortness of breath. (Rian Turk) I was available for consultation in the emergency department. The history and physical exam were done by the midlevel provider. I was consulted for this patients care. I reviewed the case with the midlevel provider and based on their presentation of the patient, I agree with the assessment, medical decision making and plan of care as documented. Chart was dictated using [employer] dictation software. Attempts were made to correct any dictation errors however some typographical errors may persist. (Monica Florez) - Lab Data Lab Results 06/21/21 Range/Units 09:15 Coronavirus (PCR) Detected A (Not Detectd) Disposition Is patient prescribed a controlled substance at d/c from ED?: No Time of Disposition: 10:10 <Rian Turk - Last Filed: 06/21/21 10:09> <Monica Florez - Last Filed: 07/02/21 13:42> Clinical Impression: COVID Disposition: HOME SELF-CARE Condition: Good Instructions (If sedation given, give patient instructions): Coronavirus Disease 2019 (COVID-19) Additional Instructions: Take vitamin C D and zinc. Take Tylenol or Motrin as needed for fever. Please follow-up with your doctor in one to 2 days. Return to the emergency room for any worsening symptoms. Referrals: Lynn Clemens MD [Primary Care Provider] - 1-2 days
== END 2021-06-21 10:34 | disposition home or self-care (01) ==
LOC: EC 08:53
DX: U07.1 COVID-19 (principal); J45.909 Unspecified asthma, uncomplicated
CPT/HCPCS: 87635; 99284

== ENCOUNTER 2022-07-28 12:49 | Emergency (ER) | payer OTHER ==
[2022-07-28 12:58] VITALS: RESP 18; TEMP 98
--- NOTE | 2022-07-28 13:36 | ED ---
URI HPI - General Chief Complaint: Upper Respiratory Infection Stated Complaint: nausea, body aches Time Seen by Provider: 07/28/22 13:31 Source: patient, RN notes reviewed Mode of arrival: ambulatory Limitations: no limitations - History of Present Illness Initial Comments: 27-year-old female presents emergency from chief complaint of fever chills cough congestion. Patient states symptoms started smoking. Patient significant other had symptoms started yesterday patient's another tested positive for influenza. Patient does not that the recent traveling back from for her. Patient offers no complaints. - Related Data Home Medications Medication Instructions Recorded Confirmed Pnv No.95/Ferrous Fum/Folic AC 1 tab PO DAILY 11/14/19 01/05/21 [ Multivitamin Tablet] Albuterol Inhaler [Ventolin Hfa 2 puff INHALATION ONCE 12/03/20 01/05/21 Inhaler] valACYclovir HCL [Valtrex] 500 mg PO DAILY 01/05/21 01/05/21 Previous Rx's Medication Instructions Recorded Ondansetron Odt [Zofran Odt] 4 mg PO Q8HR PRN #10 tab 01/08/21 Oseltamivir [Tamiflu] 75 mg PO Q12HR #10 cap 07/28/22 Allergies Allergy/AdvReac Type Severity Reaction Status Date / Time No Known Allergies Allergy Verified 07/28/22 12:58 Review of Systems ROS Statement: Those systems with pertinent positive or pertinent negative responses have been documented in the HPI. ROS Other: All systems not noted in ROS Statement are negative. Past Medical History Past Medical History: Asthma Additional Past Medical History / Comment(s): syncope, IBS, tachycardia during , hypoglycemia History of Any Multi-Drug Resistant Organisms: None Reported Past Surgical History: Adenoidectomy, Tonsillectomy Additional Past Surgical History / Comment(s): childhood Past Anesthesia/Blood Transfusion Reactions: No Reported Reaction Past Psychological History: Anxiety, Depression Smoking Status: Never smoker Past Alcohol Use History: None Reported Past Drug Use History: None Reported - Past Family History Mother Family Medical History: Diabetes Mellitus, Hypertension, Vascular Disorder Additional Family Medical History / Comment(s): crohns, hernia, neuropathy General Exam Limitations: no limitations General appearance: alert, in no apparent distress Head exam: Present: atraumatic, normocephalic, normal inspection Eye exam: Present: normal appearance, PERRL, EOMI. Absent: scleral icterus, conjunctival injection, periorbital swelling ENT exam: Present: normal exam, mucous membranes moist Neck exam: Present: normal inspection. Absent: tenderness, meningismus, lymphadenopathy Respiratory exam: Present: normal lung sounds bilaterally. Absent: respiratory distress, wheezes, rales, rhonchi, stridor Cardiovascular Exam: Present: regular rate, normal rhythm, normal heart sounds. Absent: systolic murmur, diastolic murmur, rubs, gallop, clicks GI/Abdominal exam: Present: soft, normal bowel sounds. Absent: distended, tenderness, guarding, rebound, rigid Course Vital Signs 07/28/22 07/28/22 12:56 13:46 Temperature 98 F Pulse Rate 102 H 97 Respiratory 18 18 Rate Blood Pressure 126/78 118/74 O2 Sat by Pulse 99 99 Oximetry Medical Decision Making - Medical Decision Making Patient cellulitis positive for influenza. Patient's symptoms started this morning she is making at this time though she is symptomatic. Patient we discharged in stable condition return parameters were discussed. - Lab Data Lab Results 07/28/22 07/28/22 Range/Units 13:00 13:00 Coronavirus (PCR) Not Detected (Not Detectd) Influenza Type A RNA Not Detected (Not Detectd) Influenza Type B (PCR) Not Detected (Not Detectd) Disposition Clinical Impression: Influenza Disposition: HOME SELF-CARE Condition: Stable Instructions (If sedation given, give patient instructions): Influenza (ED) Additional Instructions: Please return to the Emergency Department if symptoms worsen or any other concerns. Prescriptions: Oseltamivir [Tamiflu] 75 mg PO Q12HR #10 cap Is patient prescribed a controlled substance at d/c from ED?: No Referrals: Lynn Clemens MD [STAFF PHYSICIAN] - 1-2 days Time of Disposition: 13:36
[2022-07-28 13:48] VITALS: BP 118/74; PULSE 97
== END 2022-07-28 13:47 | disposition home or self-care (01) ==
LOC: EC 12:49
DX: J11.1 Influenza due to unidentified influenza virus with other respiratory manifestations (principal); J45.909 Unspecified asthma, uncomplicated; F41.9 Anxiety disorder, unspecified; F32.A Depression, unspecified; Z20.822 Contact with and (suspected) exposure to COVID-19
CPT/HCPCS: 87502; 87635; 99283

== ENCOUNTER 2024-04-23 11:42 | Emergency (ER) | payer OTHER ==
[2024-04-23 11:54] VITALS: RESP 18
--- NOTE | 2024-04-23 13:41 | ED ---
General Adult HPI - General Chief complaint: Recheck/Abnormal Lab/Rx Stated complaint: poss eptopic preg Time Seen by Provider: 04/23/24 12:01 Source: patient, RN notes reviewed Mode of arrival: ambulatory Limitations: no limitations - History of Present Illness Initial comments: 29-year-old female presents emergency department with chief complaint of po ssible ectopic. Patient states she is between 5 and 7 weeks currently she is G4, states that she had an ultrasound at [facility] showing concerns for ectopic patient states she has been having low back pain has been present for over a week. She denies any vaginal bleeding no significant lower abdominal cramping. Patient denies any prior ectopic - Related Data Home Medications Medication Instructions Recorded Confirmed Pnv No.95/Ferrous Fum/Folic AC 1 tab PO DAILY 11/14/19 01/05/21 [ Multivitamin Tablet] Albuterol Inhaler [Ventolin Hfa 2 puff INHALATION ONCE 12/03/20 01/05/21 Inhaler] valACYclovir HCL [Valtrex] 500 mg PO DAILY 01/05/21 01/05/21 Previous Rx's Medication Instructions Recorded Ondansetron Odt [Zofran Odt] 4 mg PO Q8HR PRN #10 tab 01/08/21 Oseltamivir [Tamiflu] 75 mg PO Q12HR #10 cap 07/28/22 Allergies Allergy/AdvReac Type Severity Reaction Status Date / Time No Known Allergies Allergy Verified 04/23/24 11:54 Review of Systems ROS Statement: Those systems with pertinent positive or pertinent negative responses have been documented in the HPI. ROS Other: All systems not noted in ROS Statement are negative. Past Medical History Past Medical History: Asthma Additional Past Medical History / Comment(s): syncope, IBS, tachycardia during , hypoglycemia History of Any Multi-Drug Resistant Organisms: None Reported Past Surgical History: Adenoidectomy, Tonsillectomy Additional Past Surgical History / Comment(s): childhood Past Anesthesia/Blood Transfusion Reactions: No Reported Reaction Past Psychological History: Anxiety, Depression Smoking Status: Never smoker Past Alcohol Use History: None Reported Past Drug Use History: None Reported - Past Family History Mother Family Medical History: Diabetes Mellitus, Hypertension, Vascular Disorder Additional Family Medical History / Comment(s): crohns, hernia, neuropathy General Exam Limitations: no limitations General appearance: alert, in no apparent distress Head exam: Present: atraumatic, normocephalic, normal inspection Eye exam: Present: normal appearance, PERRL, EOMI. Absent: scleral icterus, conjunctival injection, periorbital swelling Respiratory exam: Present: normal lung sounds bilaterally. Absent: respiratory distress, wheezes, rales, rhonchi, stridor Cardiovascular Exam: Present: regular rate, normal rhythm, normal heart sounds. Absent: systolic murmur, diastolic murmur, rubs, gallop, clicks GI/Abdominal exam: Present: soft, normal bowel sounds. Absent: distended, tenderness, guarding, rebound, rigid Back exam: Absent: CVA tenderness (R), CVA tenderness (L) Neurological exam: Present: alert, oriented X3, CN II-XII intact Course Vital Signs 04/23/24 11:51 Temperature 98.3 F Pulse Rate 86 Respiratory 18 Rate Blood Pressure 115/69 O2 Sat by Pulse 98 Oximetry Medical Decision Making - Medical Decision Making Was pt. sent in by a medical professional or institution (, PA, BUSINESS ATTORNEY, urgent care, hospital, or detention...) When possible be specific @ -[facility] clinic Did you speak to anyone other than the patient for history (EMS, parent, family, police, friend...)? What history was obtained from this source @ -No Did you review nursing and triage notes (agree or disagree)? Why? @ -I reviewed and agree with nursing and triage notes Were old charts reviewed (outside hosp., previous admission, EMS record, old EKG, old radiological studies, urgent care reports/EKG's, detention records)? Report findings @ -No old charts were reviewed Differential Diagnosis (chest pain, altered mental status, abdominal pain women, abdominal pain men, vaginal bleeding, weakness, fever, dyspnea, syncope, headache, dizziness, GI bleed, back pain, seizure, CVA, palpatations, mental health, musculoskeletal)? @ -Threatened miscarriage, miscarriage, early , ectopic EKG interpreted by me (3pts min.). @ -[None X-rays interpreted by me (1pt min.). @ -None done CT interpreted by me (1pt min.). @ -None done U/S interpreted by me (1pt. min.). @ -All [employer] transvaginal OB showing possible early versus miscarriage versus less likely ectopic What testing was considered but not performed or refused? (CT, X-rays, U/S, labs)? Why? @ -None What meds were considered but not given or refused? Why? @ -None Did you discuss the management of the patient with other professionals (professionals i.e. , PA, BUSINESS ATTORNEY, lab, RT, psych nurse, social media designer, loom fixer supervisor, teacher, aoc director combat plans officer, case fitter)? Give summary @ -No Was smoking cessation discussed for >3mins.? @ -No Was critical care preformed (if so, how long)? @ -No Were there social determinants of health that impacted care today? How? (Homelessness, low income, unemployed, alcoholism, drug addiction, transportation, low edu. Level, literacy, decrease access to med. care, mcc, rehab)? @ -No Was there de-escalation of care discussed even if they declined (Discuss DNR or withdrawal of care, Hospice)? DNR status @ -No What co-morbidities impacted this encounter? (DM, HTN, Smoking, COPD, CAD, Cancer, CVA, ARF, Chemo, Hep., AIDS, mental health diagnosis, sleep apnea, morbid obesity)? @ -None Was patient admitted / discharged? Hospital course, mention meds given and route, prescriptions, significant lab abnormalities, going to OR and other pertinent info. @ -Charge patient has no abdominal pain she has been complaining of back pain which urinalysis and laboratory studies revealed no specific findings. Ultrasound is concerning for early versus miscarriage she will have repeat hCG in 2 days and return parameters jordy. She has no adnexal tenderness. Undiagnosed new problem with uncertain prognosis? @ -No Drug Therapy requiring intensive monitoring for toxicity (Heparin, Nitro, Insulin, Cardizem)? @ -No Were any procedures done? @ -No Diagnosis/symptom? @ -Early Acute, or Chronic, or Acute on Chronic? @ -Acute Uncomplicated (without systemic symptoms) or Complicated (systemic symptoms)? @ -Uncomplicated Side effects of treatment? @ -No Exacerbation, Progression, or Severe Exacerbation? @ -No Poses a threat to life or bodily function? How? (Chest pain, [place], [place], pneumonia, PE, COPD, DKA, ARF, appy, cholecystitis, CVA, Diverticulitis, Homicidal, Suicidal, threat to staff... and all critical care pts) @ -No - Lab Data Result diagrams: 04/23/24 13:14 04/23/24 13:14 Lab Results 04/23/24 04/23/24 04/23/24 Range/Units 13:14 13:14 13:14 WBC 10.1 (3.8-10.6) k/uL RBC 4.41 (3.80-5.40) m/uL Hgb 13.4 (11.4-16.0) gm/dL Hct 40.1 (34.0-46.0) % MCV 90.9 (80.0-100.0) fL MCH 30.5 (25.0-35.0) pg MCHC 33.5 (31.0-37.0) g/dL RDW 12.3 (11.5-15.5) % Plt Count 276 (150-450) k/uL MPV 8.0 Neutrophils % 77 % Lymphocytes % 17 % Monocytes % 4 % Eosinophils % 1 % Basophils % 0 % Neutrophils # 7.8 H (1.3-7.7) k/uL Lymphocytes # 1.7 (1.0-4.8) k/uL Monocytes # 0.4 (0-1.0) k/uL Eosinophils # 0.1 (0-0.7) k/uL Basophils # 0.0 (0-0.2) k/uL PT 10.6 (10.0-12.5) sec INR 1.0 (<1.2) APTT 27.7 (22.0-30.0) sec Sodium 136 L (137-145) mmol/L Potassium 4.9 (3.5-5.1) mmol/L Chloride 106 (98-107) mmol/L Carbon Dioxide 22 (22-30) mmol/L Anion Gap 8 mmol/L BUN 12 (7-17) mg/dL Creatinine 0.51 L (0.52-1.04) mg/dL Est GFR (CKD-EPI)AfAm >90 (>60 ml/min/1.73 sqM) Est GFR (CKD-EPI)NonAf >90 (>60 ml/min/1.73 sqM) Glucose 89 (74-99) mg/dL Calcium 9.7 (8.4-10.2) mg/dL Total Bilirubin 0.9 (0.2-1.3) mg/dL AST 24 (14-36) U/L ALT 7 (4-34) U/L Alkaline Phosphatase 68 (38-126) U/L Total Protein 7.4 (6.3-8.2) g/dL Albumin 4.8 (3.5-5.0) g/dL HCG, Quant 4513.0 mIU/mL Urine Color Urine Appearance (Clear) Urine pH (5.0-8.0) Ur Specific [place] (1.001-1.035) Urine Protein (Negative) Urine Glucose (UA) (Negative) Urine Ketones (Negative) Urine Blood (Negative) Urine Nitrite (Negative) Urine Bilirubin (Negative) Urine Urobilinogen (<2.0) mg/dL Ur Leukocyte Esterase (Negative) Urine RBC (0-5) /hpf Urine WBC (0-5) /hpf Ur Squamous Epith Cells (0-4) /hpf Hyaline Casts (0-2) /lpf Urine Mucus (None) /hpf Blood Type Blood Type Recheck Bld Type Recheck Status 04/23/24 04/23/24 Range/Units 13:14 13:45 WBC (3.8-10.6) k/uL RBC (3.80-5.40) m/uL Hgb (11.4-16.0) gm/dL Hct (34.0-46.0) % MCV (80.0-100.0) fL MCH (25.0-35.0) pg MCHC (31.0-37.0) g/dL RDW (11.5-15.5) % Plt Count (150-450) k/uL MPV Neutrophils % % Lymphocytes % % Monocytes % % Eosinophils % % Basophils % % Neutrophils # (1.3-7.7) k/uL Lymphocytes # (1.0-4.8) k/uL Monocytes # (0-1.0) k/uL Eosinophils # (0-0.7) k/uL Basophils # (0-0.2) k/uL PT (10.0-12.5) sec INR (<1.2) APTT (22.0-30.0) sec Sodium (137-145) mmol/L Potassium (3.5-5.1) mmol/L Chloride (98-107) mmol/L Carbon Dioxide (22-30) mmol/L Anion Gap mmol/L BUN (7-17) mg/dL Creatinine (0.52-1.04) mg/dL Est GFR (CKD-EPI)AfAm (>60 ml/min/1.73 sqM) Est GFR (CKD-EPI)NonAf (>60 ml/min/1.73 sqM) Glucose (74-99) mg/dL Calcium (8.4-10.2) mg/dL Total Bilirubin (0.2-1.3) mg/dL AST (14-36) U/L ALT (4-34) U/L Alkaline Phosphatase (38-126) U/L Total Protein (6.3-8.2) g/dL Albumin (3.5-5.0) g/dL HCG, Quant mIU/mL Urine Color Colorless Urine Appearance Cloudy H (Clear) Urine pH 5.5 (5.0-8.0) Ur Specific [place] 1.012 (1.001-1.035) Urine Protein Negative (Negative) Urine Glucose (UA) Negative (Negative) Urine Ketones 1+ H (Negative) Urine Blood Negative (Negative) Urine Nitrite Negative (Negative) Urine Bilirubin Negative (Negative) Urine Urobilinogen <2.0 (<2.0) mg/dL Ur Leukocyte Esterase Small H (Negative) Urine RBC <1 (0-5) /hpf Urine WBC 1 (0-5) /hpf Ur Squamous Epith Cells 1 (0-4) /hpf Hyaline Casts 1 (0-2) /lpf Urine Mucus Rare H (None) /hpf Blood Type O Positive Blood Type Recheck O Pos Bld Type Recheck Status No Disposition Clinical Impression: Disposition: HOME SELF-CARE Condition: Stable Instructions (If sedation given, give patient instructions): (ED) Additional Instructions: Please return to the Emergency Department if symptoms worsen or any other concerns. Is patient prescribed a controlled substance at d/c from ED?: No Referrals: Lynn Clemens MD [Primary Care Provider] - 1-2 days Time of Disposition: 15:11
--- NOTE | 2024-04-23 13:46 | US ---
EXAMINATION TYPE: Transabdominal DATE OF EXAM: 04/23/2024 1:27 PM COMPARISON: NONE CLINICAL INDICATION: Female, 29 years old with history of pain; back pain x 2 weeks, went to [facility] to day and they thought they saw yolk sac within right ovary so sent to for possible ectopic EXAM PERFORMED: OBTA/OBTV EXAM MEASUREMENTS: GESTATIONAL AGE / DATING Physician Established: Not yet established Dates by LMP: (6 weeks/6 days) EDC: 12/11/2024 Dates by First Scan: No previous this is first scan Dates by Current Scan for: (5 weeks/0 days) EDC: 12/24/2024 MATERNAL ANATOMY Uterus: 8.7 x 5.2 x 4.7cm Right Ovary: 2.7 x 2.9 x 2.0cm -1.8 x 1.2 x 1.2cm simple cyst Left Ovary: 3.1 x 2.2 x 2.4cm Post CDS / Adnexa: wnl Presence of free fluid: no Presence of corpus luteal cyst: yes - lt ovary = 2.0 x 1.7 x 1.7cm Presence of subchorionic bleed: no GESTATION / SURVEY CRL: not seen MSD: 0.5cm (5 weeks/0 days) = seen within JUDAH Yolk Sac (normal less than 6mm): not seen Heart Rate: 0 bpm IUP: No cardiac activity noted on today's scan. Question demise. Date of LMP: 03/06/2024 Beta HcG (if available): not drawn yet IMPRESSION: 1. There is no evidence of pole. Small fluid-filled sac in the endometrium can be associated wi th normal too early to detect. Spontaneous and sagittal gestational sac of ectopic also in the differential diagnosis. Correlate with serial beta hCG and pelvic ultrasound.
[2024-04-23 13:58] LABS: Basophils % (A) 0 %; Eosinophils # (A) 0.1 k/uL (0-0.7); Eosinophils % (A) 1 %; HCT 40.1 % (34.0-46.0); HGB 13.4 gm/dL (11.4-16.0); Lymphocytes # (A) 1.7 k/uL (1.0-4.8); Lymphocytes % (A) 17 %; MCH 30.5 pg (25.0-35.0); MCHC 33.5 g/dL (31.0-37.0); MCV 90.9 fL (80.0-100.0); Monocytes # (A) 0.4 k/uL (0-1.0); Monocytes % (A) 4 %; Neutrophils # (A) 7.8 k/uL (1.3-7.7); Neutrophils % (A) 77 %; Platelet Count 276 k/uL (150-450); RBC 4.41 m/uL (3.80-5.40); RDW 12.3 % (11.5-15.5); WBC 10.1 k/uL (3.8-10.6)
[2024-04-23 14:07] LABS: Partial Thromboplastin Time 27.7 sec (22.0-30.0); Prothrombin Time 10.6 sec (10.0-12.5)
[2024-04-23 14:19] LABS: Appearance,Urine Cloudy (Clear); Bilirubin,Urine Negative (Negative); Blood,Urine Negative (Negative); Color,Urine Colorless; Glucose,Urine (UA) Negative (Negative); Hyaline Casts,Urine 1 /lpf (0-2); Ketones,Urine 1+ (Negative); Leukocyte Esterase,Urine Small (Negative); Mucus,Urine Rare /hpf; Nitrite,Urine Negative (Negative); PH, Urine 5.5 (5.0-8.0); Protein,Urine Negative (Negative); RBC,Urine <1 /hpf (0-5); Specific Gravity,Urine 1.012 (1.001-1.035); Squamous Epithelial Cell,Urine 1 /hpf (0-4); Urobilinogen,Urine <2.0 mg/dL (<2.0); WBC,Urine 1 /hpf (0-5)
[2024-04-23 14:38] LABS: ALT 7 U/L (4-34); African American GFR (CKD) >90 (>60 ml/min/1.73 sqM); Albumin 4.8 g/dL (3.5-5.0); Anion Gap 8 mmol/L; Blood Urea Nitrogen 12 mg/dL (7-17); Calcium 9.7 mg/dL (8.4-10.2); Carbon Dioxide 22 mmol/L (22-30); Chloride 106 mmol/L (98-107); Glucose 89 mg/dL (74-99); Non-African American GFR(CKD) >90 (>60 ml/min/1.73 sqM); Sodium 136 mmol/L (137-145); Total Bilirubin 0.9 mg/dL (0.2-1.3); Total Protein 7.4 g/dL (6.3-8.2)
[2024-04-23 14:52] LABS: AST 24 U/L (14-36); Alkaline Phosphatase 68 U/L (38-126); Potassium 4.9 mmol/L (3.5-5.1)
[2024-04-23] MEDS: ACETAMINOPHEN TAB 500 MG TAB PO STA (15:14)
[2024-04-23 15:35] VITALS: BP 118/79; PULSE 76; TEMP 98.1
== END 2024-04-23 16:48 | disposition home or self-care (01) ==
LOC: EC 11:42
CPT/HCPCS: 36415; 76801; 76817; 80053; 81001; 84702; 85025; 85610; 85730; 86900; 86901; 99284

== ENCOUNTER → 2024-04-25 | Outpatient (CLI) | payer OTHER | END | disposition home or self-care (01) | LOC: LABWHC1 09:52 | PROVIDERS: ATTEND Physician Assistant | DX: O20.0 Threatened abortion | CPT/HCPCS: 36415; 84702 ==

== ENCOUNTER 2024-06-28 13:23 | Emergency (ER) | payer OTHER ==
--- NOTE | 2024-06-28 14:10 | ED ---
General Adult HPI - General Chief complaint: Headache Stated complaint: Headache-14 weeks preg Time Seen by Provider: 06/28/24 13:33 Source: patient, RN notes reviewed Mode of arrival: ambulatory Limitations: no limitations - History of Present Illness Initial comments: 29-year-old G3, P2 female at 14 weeks gestation presents to the emergency department for evaluation of headache. Patient reports that this started around 1700 yesterday. She reports that the pain came on after she ate dinner. She reports that the pain is mostly in her frontal head. Denies any radiation of the pain. She does report taking Tylenol but states that this did not help and she does not like taking medications while she is . Patient does admit to recent sick contacts. Denies fever but admits to chills. Denies neck stiffness. - Related Data Home Medications Medication Instructions Recorded Confirmed Pnv No.95/Ferrous Fum/Folic AC 1 tab PO DAILY 11/14/19 01/05/21 [ Multivitamin Tablet] Albuterol Inhaler [Ventolin Hfa 2 puff INHALATION ONCE 12/03/20 01/05/21 Inhaler] valACYclovir HCL [Valtrex] 500 mg PO DAILY 01/05/21 01/05/21 Previous Rx's Medication Instructions Recorded Ondansetron Odt [Zofran Odt] 4 mg PO Q8HR PRN #10 tab 01/08/21 Oseltamivir [Tamiflu] 75 mg PO Q12HR #10 cap 07/28/22 Allergies Allergy/AdvReac Type Severity Reaction Status Date / Time No Known Allergies Allergy Verified 06/28/24 13:28 Review of Systems ROS Statement: Those systems with pertinent positive or pertinent negative responses have been documented in the HPI. ROS Other: All systems not noted in ROS Statement are negative. Past Medical History Past Medical History: Asthma Additional Past Medical History / Comment(s): syncope, IBS, tachycardia during , hypoglycemia History of Any Multi-Drug Resistant Organisms: None Reported Past Surgical History: Adenoidectomy, Tonsillectomy Additional Past Surgical History / Comment(s): childhood Past Anesthesia/Blood Transfusion Reactions: No Reported Reaction Past Psychological History: Anxiety, Depression Smoking Status: Never smoker Past Alcohol Use History: None Reported Past Drug Use History: None Reported - Past Family History Mother Family Medical History: Diabetes Mellitus, Hypertension, Vascular Disorder Additional Family Medical History / Comment(s): crohns, hernia, neuropathy General Exam Limitations: no limitations General appearance: alert, in no apparent distress Head exam: Present: atraumatic, normocephalic, normal inspection Eye exam: Present: normal appearance, PERRL, EOMI. Absent: scleral icterus, conjunctival injection, periorbital swelling ENT exam: Present: normal exam, mucous membranes moist Neck exam: Present: normal inspection. Absent: tenderness, meningismus, lymphadenopathy Respiratory exam: Present: normal lung sounds bilaterally. Absent: respiratory distress, wheezes, rales, rhonchi, stridor Cardiovascular Exam: Present: regular rate, normal rhythm, normal heart sounds. Absent: systolic murmur, diastolic murmur, rubs, gallop, clicks GI/Abdominal exam: Present: soft. Absent: distended, tenderness, guarding, rebound, rigid Extremities exam: Present: normal inspection, full ROM, normal capillary refill. Absent: tenderness, pedal edema, joint swelling, calf tenderness Back exam: Present: normal inspection Neurological exam: Present: alert, oriented X3, CN II-XII intact Psychiatric exam: Present: normal affect, normal mood Skin exam: Present: warm, dry, intact, normal color. Absent: rash Course Vital Signs 06/28/24 06/28/24 13:26 16:17 Temperature 98 F 98.0 F Pulse Rate 95 72 Respiratory 16 20 Rate Blood Pressure 129/71 115/73 O2 Sat by Pulse 100 99 Oximetry Medical Decision Making - Medical Decision Making Was pt. sent in by a medical professional or institution (, PA, PAPIER MACHE' MOLDER, urgent care, hospital, or halfway...) When possible be specific @ -No Did you speak to anyone other than the patient for history (EMS, parent, family, police, friend...)? What history was obtained from this source @ -No Did you review nursing and triage notes (agree or disagree)? Why? @ -I reviewed and agree with nursing and triage notes Were old charts reviewed (outside hosp., previous admission, EMS record, old EKG, old radiological studies, urgent care reports/EKG's, halfway records)? Report findings @ -No old charts were reviewed Differential Diagnosis (chest pain, altered mental status, abdominal pain women, abdominal pain men, vaginal bleeding, weakness, fever, dyspnea, syncope, headache, dizziness, GI bleed, back pain, seizure, CVA, palpatations, mental health, musculoskeletal)? @ -Differential Headache: Migraine, tension, cluster, carbon monoxide, central venous thrombosis, pension karma temporal arteritis, acute closure glaucoma, intercranial hemorrhage, mastoiditis, sinusitis, head injury, this is not meant to be an all-inclusive list. EKG interpreted by me (3pts min.). @ -None X-rays interpreted by me (1pt min.). @ -None done CT interpreted by me (1pt min.). @ -None done U/S interpreted by me (1pt. min.). @ -None done What testing was considered but not performed or refused? (CT, X-rays, U/S, labs)? Why? @ -None What meds were considered but not given or refused? Why? @ -None Did you discuss the management of the patient with other professionals (professionals i.e. , PA, PAPIER MACHE' MOLDER, lab, RT, psych nurse, social media manager, cover stitch machine operator, teacher, credit risk review officer, skilled nursing case manager)? Give summary @ -No Was smoking cessation discussed for >3mins.? @ -No Was critical care preformed (if so, how long)? @ -No Were there social determinants of health that impacted care today? How? (Homelessness, low income, unemployed, alcoholism, drug addiction, transportation, low edu. Level, literacy, decrease access to med. care, usp, rehab)? @ -No Was there de-escalation of care discussed even if they declined (Discuss DNR or withdrawal of care, Hospice)? DNR status @ -No What co-morbidities impacted this encounter? (DM, HTN, Smoking, COPD, CAD, Cancer, CVA, ARF, Chemo, Hep., AIDS, mental health diagnosis, sleep apnea, morbid obesity)? @ -None Was patient admitted / discharged? Hospital course, mention meds given and route, prescriptions, significant lab abnormalities, going to OR and other pertinent info. @ -Discharge. Patient presented to the emergency department for evaluation of headache in . Laboratory studies were obtained revealing No significant leukocytosis, hemoglobin stable; normal electrolytes; UA shows no evidence of infectious process; patient negative for COVID, influenza, RSV. Discussed the potential for CT scan of the brain, shared decision making utiliz ed and decided against at this time because of patients gravid status. Patient was reluctant for medical analgesia as she is worried about the fetus. Discussed category ratings of medications and patient was then administered Reglan and Benadryl. Patient noted significant improvement in her headache following this. Patient will be discharged home. Strict return precautions discussed. She is understanding agreeable with this plan. Patient stable at time of discharge. Case discussed with Dr. Herzog Undiagnosed new problem with uncertain prognosis? @ -No Drug Therapy requiring intensive monitoring for toxicity (Heparin, Nitro, Insulin, Cardizem)? @ -No Were any procedures done? @ -No Diagnosis/symptom? @ -Headache Acute, or Chronic, or Acute on Chronic? @ -Acute Uncomplicated (without systemic symptoms) or Complicated (systemic symptoms)? @ -Uncomplicated Side effects of treatment? @ -No Exacerbation, Progression, or Severe Exacerbation? @ -No Poses a threat to life or bodily function? How? (Chest pain, [place], [place], pneumonia, PE, COPD, DKA, ARF, appy, cholecystitis, CVA, Diverticulitis, Homicidal, Suicidal, threat to staff... and all critical care pts) @ -No - Lab Data Result diagrams: 06/28/24 14:11 06/28/24 14:11 Lab Results 06/28/24 06/28/24 06/28/24 Range/Units 14:11 14:11 14:11 WBC 6.4 (3.8-10.6) k/uL RBC 4.15 (3.80-5.40) m/uL Hgb 12.5 (11.4-16.0) gm/dL Hct 37.9 (34.0-46.0) % MCV 91.2 (80.0-100.0) fL MCH 30.0 (25.0-35.0) pg MCHC 32.9 (31.0-37.0) g/dL RDW 12.3 (11.5-15.5) % Plt Count 219 (150-450) k/uL MPV 7.8 Neutrophils % 73 % Lymphocytes % 19 % Monocytes % 6 % Eosinophils % 1 % Basophils % 0 % Neutrophils # 4.7 (1.3-7.7) k/uL Lymphocytes # 1.2 (1.0-4.8) k/uL Monocytes # 0.4 (0-1.0) k/uL Eosinophils # 0.1 (0-0.7) k/uL Basophils # 0.0 (0-0.2) k/uL Sodium 138 (137-145) mmol/L Potassium 3.6 (3.5-5.1) mmol/L Chloride 109 H (98-107) mmol/L Carbon Dioxide 21 L (22-30) mmol/L Anion Gap 8 mmol/L BUN 6 L (7-17) mg/dL Creatinine 0.39 L (0.52-1.04) mg/dL Est GFR (CKD-EPI)AfAm >90 (>60 ml/min/1.73 sqM) Est GFR (CKD-EPI)NonAf >90 (>60 ml/min/1.73 sqM) Glucose 79 (74-99) mg/dL Calcium 9.0 (8.4-10.2) mg/dL Magnesium 1.7 (1.6-2.3) mg/dL Total Bilirubin 0.3 (0.2-1.3) mg/dL AST 19 (14-36) U/L ALT 6 (4-34) U/L Alkaline Phosphatase 63 (38-126) U/L Total Protein 6.4 (6.3-8.2) g/dL Albumin 3.9 (3.5-5.0) g/dL Urine Color Colorless Urine Appearance Clear (Clear) Urine pH 6.0 (5.0-8.0) Ur Specific [place] 1.002 (1.001-1.035) Urine Protein Negative (Negative) Urine Glucose (UA) Negative (Negative) Urine Ketones Negative (Negative) Urine Blood Negative (Negative) Urine Nitrite Negative (Negative) Urine Bilirubin Negative (Negative) Urine Urobilinogen <2.0 (<2.0) mg/dL Ur Leukocyte Esterase Negative (Negative) Influenza Type A (PCR) (Not Detectd) Influenza Type B (PCR) (Not Detectd) RSV (PCR) (Not Detectd) SARS-CoV-2 (PCR) (Not Detectd) 06/28/24 Range/Units 14:11 WBC (3.8-10.6) k/uL RBC (3.80-5.40) m/uL Hgb (11.4-16.0) gm/dL Hct (34.0-46.0) % MCV (80.0-100.0) fL MCH (25.0-35.0) pg MCHC (31.0-37.0) g/dL RDW (11.5-15.5) % Plt Count (150-450) k/uL MPV Neutrophils % % Lymphocytes % % Monocytes % % Eosinophils % % Basophils % % Neutrophils # (1.3-7.7) k/uL Lymphocytes # (1.0-4.8) k/uL Monocytes # (0-1.0) k/uL Eosinophils # (0-0.7) k/uL Basophils # (0-0.2) k/uL Sodium (137-145) mmol/L Potassium (3.5-5.1) mmol/L Chloride (98-107) mmol/L Carbon Dioxide (22-30) mmol/L Anion Gap mmol/L BUN (7-17) mg/dL Creatinine (0.52-1.04) mg/dL Est GFR (CKD-EPI)AfAm (>60 ml/min/1.73 sqM) Est GFR (CKD-EPI)NonAf (>60 ml/min/1.73 sqM) Glucose (74-99) mg/dL Calcium (8.4-10.2) mg/dL Magnesium (1.6-2.3) mg/dL Total Bilirubin (0.2-1.3) mg/dL AST (14-36) U/L ALT (4-34) U/L Alkaline Phosphatase (38-126) U/L Total Protein (6.3-8.2) g/dL Albumin (3.5-5.0) g/dL Urine Color Urine Appearance (Clear) Urine pH (5.0-8.0) Ur Specific [place] (1.001-1.035) Urine Protein (Negative) Urine Glucose (UA) (Negative) Urine Ketones (Negative) Urine Blood (Negative) Urine Nitrite (Negative) Urine Bilirubin (Negative) Urine Urobilinogen (<2.0) mg/dL Ur Leukocyte Esterase (Negative) Influenza Type A (PCR) Not Detected (Not Detectd) Influenza Type B (PCR) Not Detected (Not Detectd) RSV (PCR) Not Detected (Not Detectd) SARS-CoV-2 (PCR) Not Detected (Not Detectd) Disposition Clinical Impression: Headache in Disposition: HOME SELF-CARE Condition: Stable Instructions (If sedation given, give patient instructions): Acute Headache (ED) Additional Instructions: Please follow up with your JAVA DEVELOPMENT MANAGER. Return to the emergency department for new or worsening symptoms. Is patient prescribed a controlled substance at d/c from ED?: No Referrals: Lynn Clemens MD [Primary Care Provider] - 1-2 days
[2024-06-28 14:22] LABS: Basophils % (A) 0 %; Eosinophils # (A) 0.1 k/uL (0-0.7); Eosinophils % (A) 1 %; HCT 37.9 % (34.0-46.0); HGB 12.5 gm/dL (11.4-16.0); Lymphocytes # (A) 1.2 k/uL (1.0-4.8); Lymphocytes % (A) 19 %; MCHC 32.9 g/dL (31.0-37.0); MCV 91.2 fL (80.0-100.0); Mean Platelet Volume 7.8; Monocytes # (A) 0.4 k/uL (0-1.0); Monocytes % (A) 6 %; Neutrophils # (A) 4.7 k/uL (1.3-7.7); Neutrophils % (A) 73 %; Platelet Count 219 k/uL (150-450); RBC 4.15 m/uL (3.80-5.40); RDW 12.3 % (11.5-15.5); WBC 6.4 k/uL (3.8-10.6)
[2024-06-28 14:31] LABS: Appearance,Urine Clear (Clear); Bilirubin,Urine Negative (Negative); Blood,Urine Negative (Negative); Color,Urine Colorless; Glucose,Urine (UA) Negative (Negative); Ketones,Urine Negative (Negative); Leukocyte Esterase,Urine Negative (Negative); Nitrite,Urine Negative (Negative); Protein,Urine Negative (Negative); Specific Gravity,Urine 1.002 (1.001-1.035); Urobilinogen,Urine <2.0 mg/dL (<2.0)
[2024-06-28 14:35] LABS: ALT 6 U/L (4-34); AST 19 U/L (14-36); African American GFR (CKD) >90 (>60 ml/min/1.73 sqM); Albumin 3.9 g/dL (3.5-5.0); Alkaline Phosphatase 63 U/L (38-126); Anion Gap 8 mmol/L; Blood Urea Nitrogen 6 mg/dL (7-17); Carbon Dioxide 21 mmol/L (22-30); Chloride 109 mmol/L (98-107); Glucose 79 mg/dL (74-99); Magnesium 1.7 mg/dL (1.6-2.3); Non-African American GFR(CKD) >90 (>60 ml/min/1.73 sqM); Potassium 3.6 mmol/L (3.5-5.1); Sodium 138 mmol/L (137-145); Total Bilirubin 0.3 mg/dL (0.2-1.3); Total Protein 6.4 g/dL (6.3-8.2)
[2024-06-28] MEDS: METOCLOPRAMIDE 5 MG/ML 2 ML VIAL IVP STA (15:20)
[2024-06-28] MEDS: diphenhydrAMINE 50 MG/ML 1 ML VIAL IVP STA (15:20)
[2024-06-28 16:18] VITALS: BP 115/73; PULSE 72; RESP 20; TEMP 98
== END 2024-06-28 16:18 | disposition home or self-care (01) ==
LOC: EC 13:23
DX: O26.891 Other specified pregnancy related conditions, first trimester (principal); R51.9 Headache, unspecified; Z3A.14 14 weeks gestation of pregnancy
CPT/HCPCS: 36415; 80053; 83735; 85025; 81003; 87636; 99284; 96374; 96375; J1200; J2765

== ENCOUNTER 2024-08-21 10:54 | Outpatient (CLI) | payer OTHER ==
[2024-08-21 11:26] VITALS: BP 122/73; PULSE 105; RESP 16; TEMP 97.8
--- NOTE | 2024-09-25 15:43 | P.MSEPDOC ---
Presenting Problems - Arrival Data Date of Arrival on Unit: 08/21/24 Time of Arrival on Unit: 10:54 Mode of Transport: Ambulatory - Complaint OB-Reason for Admission/Chief Complaint: Other Comment: lost mucus plug 21.6 weeks Medical History - Information : 4 Para: 2 Term: 2 : 0 Abortions: Spontaneous or Elective: 1 Number of Living Children: 2 - Gestational Age Gestational Age by NEHEMIAH (wks/days): 21 Weeks and 6 Days Review of Systems - Review of Systems Constitutional: No problems, Recent weight loss Breast: No problems ENT: No problems Cardiovascular: No problems Respiratory: No problems Gastrointestinal: No problems Genitourinary: No problems Musculoskeletal: No problems Neurological: No problems Skin: No problems Vital Signs - Temperature Temperature: 97.8 F Temperature Source: Temporal Artery Scan - Pulse Right Pulse Rate: 105 Pulse Assessment Method: Automatic Cuff - Respirations Respiratory Rate: 16 Oxygen Delivery Method: Room Air O2 Sat by Pulse Oximetry: 96 - Blood Pressure Right Arm Blood Pressure: 122/73 Blood Pressure Mean: 89 Blood Pressure Source: Automatic Cuff Medical Screen Scoring - Assessment - Baby A Baseline FHR: 140 Heart Rate - NICHD Category: Category I (Normal) Physician Notification - Physician Notified Physician Notified Date: 08/21/24 Physician Notified Time: 11:26 Physician: Brittaney Garrison Order Received: Yes (discharge with instruction) Maternal Triage Index - Maternal Triage Index Presenting for scheduled procedure w/no complaint: No - Stat/Priority 1 Stat Priority 1: No - Urgent/Priority 2 Urgent Priority 2: No - Prompt/Priority 3 Prompt Priority 3: No - Non-Urgent/Priority 4 Non-Urgent Priority 4: Yes Criteria Met for Priority 4: 21.6 weeks, lost mucus plug, denies SROM, denies bleeding, denies contractions Disposition - Disposition OB Disposition: Triage, Discharge to home, Written follow up instructions reviewed Discharge Date: 08/21/24 Discharge Time: 11:35 I agree with the RN Medical Screening Exam: Yes Physician's MSE Comment: I have neither seen nor examined the patient Case reviewed; plan agreed upon as documented in EMR&OBIX.: Yes Diagnosis: OTHER SPECIFIED COMPLICATIONS OF LABOR AND DELIVERY
== END 2024-08-21 11:35 | disposition home or self-care (01) ==
LOC: FBPOP 10:54
PROVIDERS: ATTEND Obstetrics & Gynecology Obstetrics
DX: O75.89 Other specified complications of labor and delivery (principal); Z3A.21 21 weeks gestation of pregnancy
CPT/HCPCS: 99213

== ENCOUNTER 2024-10-24 13:00 | Outpatient (CLI) | payer OTHER ==
[2024-10-24 13:34] VITALS: BP 120/74; PULSE 104; RESP 18; TEMP 98
[2024-10-24 13:42] LABS: Appearance,Urine Clear (Clear); Bilirubin,Urine Negative (Negative); Blood,Urine Negative (Negative); Color,Urine Light Yellow; Glucose,Urine (UA) Negative (Negative); Ketones,Urine Negative (Negative); Leukocyte Esterase,Urine Negative (Negative); Nitrite,Urine Negative (Negative); Protein,Urine Negative (Negative); Urobilinogen,Urine <2.0 mg/dL (<2.0)
[2024-10-24] MEDS: TERBUTALINE 1 MG/ML VIAL SQ PRN (15:02)
[2024-10-24] MEDS ORDERED: BETAMET ACET-BETAMETH SOD PHOS 6 MG/ML MDV IM SCH (15:30)
--- NOTE | 2024-11-20 11:08 | P.MSEPDOC ---
Presenting Problems - Arrival Data Date of Arrival on Unit: 10/24/24 Time of Arrival on Unit: 12:57 Mode of Transport: Wheelchair - Complaint OB-Reason for Admission/Chief Complaint: Pain Comment: Pt is a with NEHEMIAH 12/26/24 here at 31.0 weeks of gestation with c/o lower back pressure and cramping that started this AM but has since become worse. Pt reports she thought she was constipated but took a stool softener and had a BM without relief. 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 Pt denies complications with the . Medical History - Information : 4 Para: 2 Term: 2 : 0 Abortions: Spontaneous or Elective: 1 Number of Living Children: 2 - Gestational Age Gestational Age by NEHEMIAH (wks/days): 31 Weeks and 0 Days Review of Systems - Review of Systems Constitutional: No problems Breast: No problems ENT: No problems Cardiovascular: No problems Respiratory: No problems Gastrointestinal: No problems Genitourinary: No problems Musculoskeletal: No problems Neurological: No problems Skin: No problems Vital Signs - Temperature Temperature: 98.0 F Temperature Source: Oral - Pulse Right Sitting Pulse Oximetery Pulse Rate: 104 Pulse Assessment Method: Pulse Oximetry - Respirations Respiratory Rate: 18 Oxygen Delivery Method: Room Air O2 Sat by Pulse Oximetry: 98 - Blood Pressure Right Arm Sitting Blood Pressure: 120/74 Blood Pressure Mean: 89 Blood Pressure Source: Automatic Cuff Medical Screen Scoring - Cervical Exam Membranes: Intact - Uterine Contractions Frequency From (mins): 2 Frequency To (mins): 3 Duration From (seconds): 60 Duration To (seconds): 80 Intensity: Mild Resting: Soft to palpation - Assessment - Baby A Baseline FHR: 135 Heart Rate - NICHD Category: Category I (Normal) NST: Reactive Physician Notification - Physician Notified Physician Notified Date: 10/24/24 Physician Notified Time: 13:36 Physician: Sb Fernandes New Order Received: Yes - Notification Comment Comment: Dr. Fernandes notified of pts arrival to triage and her complaints. Report given including hx, maternal status and VS, FHTs and UC pattern. Orders to send the UA, collect an FFN and complete an SVE. Orders read back and confirmed. RN to call back physician with results. Maternal Triage Index - Maternal Triage Index Presenting for scheduled procedure w/no complaint: No - Stat/Priority 1 Stat Priority 1: No - Urgent/Priority 2 Urgent Priority 2: Yes Provider Notified: Sb Fernandes Provider Notified Time: 13:36 Criteria Met for Priority 2: Pt is a with NEHEMIAH 12/26/24 here at 31.0 weeks of gestation with c/o lower back pressure and cramping that started this AM but has since become worse. Pt reports she thought she was constipated but took a stool softener and had a BM without relief. 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 Pt denies complications with the . Disposition - Disposition OB Disposition: Triage, Discharge to home Discharge Date: 10/24/24 Discharge Time: 16:04 I agree with the RN Medical Screening Exam: Yes Physician's MSE Comment: I have neither seen nor examined the patient. Case reviewed; plan agreed upon as documented in EMR&OBIX.: Yes Diagnosis: RELATED CONDITIONS, UNSPECIFIED, THIRD TRIMESTER
== END 2024-10-24 16:04 | disposition home or self-care (01) ==
LOC: FBPOP 13:00
PROVIDERS: ATTEND Obstetrics & Gynecology
DX: O26.93 Pregnancy related conditions, unspecified, third trimester (principal); O26.893 Other specified pregnancy related conditions, third trimester; M54.50 Low back pain, unspecified; Z3A.31 31 weeks gestation of pregnancy
CPT/HCPCS: 59025; 99214; 96372; 82731; 81003; J3105

== ENCOUNTER 2024-11-11 09:36 | Outpatient (CLI) | payer OTHER ==
[2024-11-11 09:53] VITALS: BP 121/78; PULSE 110; TEMP 98
[2024-11-11] MEDS: ONDANSETRON 4 MG/2 ML VIAL IVP STA (10:47)
[2024-11-11] MEDS: LACTATED RINGERS 1,000 ML BAG IV STA (10:47)
[2024-11-11 11:31] VITALS: RESP 17
--- NOTE | 2024-12-03 20:39 | P.MSEPDOC ---
Presenting Problems - Arrival Data Date of Arrival on Unit: 11/11/24 Time of Arrival on Unit: 09:36 Mode of Transport: Ambulatory - Complaint OB-Reason for Admission/Chief Complaint: Pain Comment: pt presents to triage for lower back pain and cramping rating pain at 03/04 Medical History - Gestational Age Gestational Age by NEHEMIAH (wks/days): 33 Weeks and 4 Days Review of Systems - Review of Systems Constitutional: No problems Breast: No problems ENT: No problems Cardiovascular: No problems Respiratory: No problems Gastrointestinal: No problems Genitourinary: No problems Musculoskeletal: No problems Neurological: No problems Skin: No problems Vital Signs - Temperature Temperature: 98.0 F Temperature Source: Temporal Artery Scan - Pulse Pulse Oximetery Pulse Rate: 110 Pulse Assessment Method: Automatic Cuff - Respirations Respiratory Rate: 17 Oxygen Delivery Method: Room Air O2 Sat by Pulse Oximetry: 98 - Blood Pressure Right Arm Blood Pressure: 121/78 Blood Pressure Mean: 92 Blood Pressure Source: Automatic Cuff Medical Screen Scoring - Cervical Exam Dilation (cm): 0 Membranes: Intact - Uterine Contractions Intensity: Mild Resting: Soft to palpation - Assessment - Baby A Baseline FHR: 140 Heart Rate - NICHD Category: Category I (Normal) NST: Reactive Physician Notification - Physician Notified Physician Notified Date: 11/11/24 Physician Notified Time: 11:10 Physician: Emiliana Herrera New Order Received: Yes - Notification Comment Comment: pt given 1 liter of LR and dose of zofran, cervical exam closed and no change, has appt in office tomorrow, pt will be off work till she sees Dr. Herrera Maternal Triage Index - Maternal Triage Index Presenting for scheduled procedure w/no complaint: No - Stat/Priority 1 Stat Priority 1: No - Urgent/Priority 2 Urgent Priority 2: No - Prompt/Priority 3 Prompt Priority 3: No - Non-Urgent/Priority 4 Non-Urgent Priority 4: Yes Criteria Met for Priority 4: pt presents to triage for lower back pain and cramping rating pain at 03/04 Disposition - Disposition OB Disposition: Triage, Discharge to home, Written follow up instructions reviewed Discharge Date: 11/11/24 Discharge Time: 11:25 I agree with the RN Medical Screening Exam: Yes Case reviewed; plan agreed upon as documented in EMR&OBIX.: Yes Diagnosis: FALSE LABOR BEFORE 37 COMPLETED WEEKS OF GEST, THIRD TRI
== END 2024-11-11 11:25 | disposition home or self-care (01) ==
LOC: FBPOP 09:36
PROVIDERS: ATTEND Obstetrics & Gynecology Obstetrics
DX: O47.03 False labor before 37 completed weeks of gestation, third trimester (principal); Z3A.37 37 weeks gestation of pregnancy
CPT/HCPCS: 59025; 99214; 96361; 96374; J2405

== ENCOUNTER 2024-12-02 23:52 | Outpatient (CLI) | payer BC ==
[2024-12-03 01:03] VITALS: BP 125/71; PULSE 92; RESP 18
--- NOTE | 2025-01-02 20:51 | P.MSEPDOC ---
Presenting Problems - Arrival Data Date of Arrival on Unit: 12/02/24 Time of Arrival on Unit: 23:52 Mode of Transport: Ambulatory - Complaint OB-Reason for Admission/Chief Complaint: Rule Out SROM Comment: Pt presents to triage with c/o "pop" and gush of fluid around 2250 and leaking clear fluid since. Pt denies cx and c/o back pain that has been occuring for past few weeks Medical History - Information : 4 Para: 2 Term: 2 : 0 Abortions: Spontaneous or Elective: 1 Number of Living Children: 2 - Gestational Age Gestational Age by NEHEMIAH (wks/days): 36 Weeks and 5 Days Review of Systems - Review of Systems Constitutional: No problems Breast: No problems ENT: No problems Cardiovascular: No problems Respiratory: No problems Gastrointestinal: No problems Genitourinary: No problems Musculoskeletal: No problems Neurological: No problems Skin: No problems Vital Signs - Pulse Pulse Oximetery Pulse Rate: 92 Pulse Assessment Method: Pulse Oximetry - Respirations Respiratory Rate: 18 Oxygen Delivery Method: Room Air O2 Sat by Pulse Oximetry: 96 - Blood Pressure Right Arm Blood Pressure: 125/71 Blood Pressure Mean: 89 Blood Pressure Source: Automatic Cuff Medical Screen Scoring - Cervical Exam Dilation (cm): 1 Effacement (%): 50 Station: -2 Membranes: Intact - Assessment - Baby A Baseline FHR: 140 Heart Rate - NICHD Category: Category I (Normal) NST: Reactive Physician Notification - Physician Notified Physician Notified Date: 12/03/24 Physician Notified Time: 00:21 Physician: Brittaney Garrison New Order Received: Yes - Notification Comment Comment: Spoke with Dr. Garrison, Pt of Dr. Turcios 36 weeks 5 days presents for SROM an hour ago. amnisure negative, SVE 1/thick/-2 which was same in the office. Has apt today with Dr. Herrera. NST reative cat 1 tones. No cx on monitor or per pt, just constant back pain which has beeen going on for a few weeks. Order to d/c home Maternal Triage Index - Maternal Triage Index Presenting for scheduled procedure w/no complaint: No - Stat/Priority 1 Stat Priority 1: No - Urgent/Priority 2 Urgent Priority 2: No - Prompt/Priority 3 Prompt Priority 3: Yes Criteria Met for Priority 3: Pt presents to triage with c/o "pop" and gush of fluid around 2250 and leaking clear fluid since. Pt denies cx and c/o back pain that has been occuring for past few weeks Disposition - Disposition OB Disposition: Discharge to home I agree with the RN Medical Screening Exam: Yes Physician's MSE Comment: I have neither seen nor examined the patient Case reviewed; plan agreed upon as documented in EMR&OBIX.: Yes Diagnosis: FALSE LABOR, UNSPECIFIED
== END 2024-12-03 00:30 | disposition home or self-care (01) ==
LOC: FBPOP 23:52
PROVIDERS: ATTEND Obstetrics & Gynecology
DX: O47.03 False labor before 37 completed weeks of gestation, third trimester (principal); Z3A.36 36 weeks gestation of pregnancy
CPT/HCPCS: 59025; 84112; 99213

== ENCOUNTER 2024-12-21 06:17 | Inpatient (IN) | payer BC, OTHER ==
[2024-12-21] MEDS ORDERED: LIDOCAINE 0.5% (PF) 5 MG/ML (50 ML SDV) SQ PRN (06:47)
[2024-12-21] MEDS ORDERED: miSOPROStoL 200 MCG TAB RECTAL PRN (06:47)
[2024-12-21] MEDS ORDERED: OXYTOCIN 10 UNIT/ML 1 ML VIAL IM PRN (06:47)
[2024-12-21] MEDS ORDERED: miSOPROStoL 200 MCG TAB PO PRN (06:47)
[2024-12-21] MEDS ORDERED: TERBUTALINE 1 MG/ML VIAL SQ PRN (06:47)
[2024-12-21] MEDS ORDERED: METHYLERGONOVINE 0.2 MG/ML 1 ML AMP IM PRN (06:47)
[2024-12-21] MEDS ORDERED: CARBOPROST TROMETHAMINE 250 MCG/ML 1 ML AMP IM PRN (06:47)
[2024-12-21] MEDS ORDERED: TRANEXAMIC 1,000 MG/100ML-NACL 1,000 MG in EMPTY BAG 1 BAG IV PRN (06:47)
[2024-12-21 07:03] LABS: Basophils # (A) 0.05 10*3/uL (0.00-0.10); Basophils % (A) 0.4 %; Eosinophils # (A) 0.07 10*3/uL (0.04-0.35); Eosinophils % (A) 0.6 %; HCT 37.2 % (37.2-46.3); HGB 12.7 g/dL (12.0-15.0); Lymphocytes # (A) 2.47 10*3/uL (0.90-5.00); Lymphocytes % (A) 20.5 %; MCH 30.5 pg (27.0-32.0); MCHC 34.1 g/dL (32.0-37.0); MCV 89.2 fL (80.0-97.0); Monocytes # (A) 0.87 10*3/uL (0.20-1.00); Monocytes % (A) 7.2 %; Neutrophils # (A) 8.45 10*3/uL (1.80-7.70); Neutrophils % (A) 70.1 %; Platelet Count 256 10*3/uL (140-440); RBC 4.17 10*6/uL (4.10-5.20); RDW 12.7 % (11.5-14.5); WBC 12.06 10*3/uL (4.50-10.00)
[2024-12-21] MEDS: LACTATED RINGERS 1,000 ML IV SCH (07:12)
[2024-12-21] MEDS: OXYTOCIN 30 UNITS/500 ML NS 30 UNIT in SALINE 1 500ML.BAG IV SCH (07:13)
[2024-12-21] MEDS ORDERED: SODIUM CHLORIDE 0.9% 250 ML BAG ONE (10:01)
[2024-12-21] MEDS ORDERED: fentaNYL (PF) 50 MCG/ML 5 ML AMP ONE (10:01)
[2024-12-21] MEDS ORDERED: ROPIVACAINE 5 MG/ML 30 ML VIAL ONE (10:01)
[2024-12-21] MEDS ORDERED: diphenhydrAMINE 50 MG CAP PO PRN (14:54)
[2024-12-21] MEDS ORDERED: SIMETHICONE 80 MG CHEWABLE PO PRN (14:54)
[2024-12-21] MEDS ORDERED: diphenhydrAMINE 25 MG CAP PO PRN (14:54)
[2024-12-21] MEDS ORDERED: BENZOCAINE/MENTHOL SPRAY 1 GM/SPRAY AEROSOL TOPICAL PRN (14:54)
[2024-12-21] MEDS ORDERED: ZOLPIDEM 5 MG TAB PO PRN (14:54)
[2024-12-21] MEDS ORDERED: HYDROCORTISONE 2.5% RECTAL CREAM 30 GM TUBE RECTAL PRN (14:54)
[2024-12-21] MEDS ORDERED: LANOLIN CREAM 1 GM TUBE TOPICAL PRN (14:54)
[2024-12-21] MEDS ORDERED: OXYTOCIN 30 UNITS/500 ML NS 30 UNIT in SALINE 1 500ML.BAG IV SCH (15:00)
[2024-12-21] MEDS: IBUPROFEN 800 MG TAB PO SCH (16:09)
--- NOTE | 2024-12-21 16:40 | P.HPOB ---
History of Present Illness H&P Date: 12/21/24 Chief Complaint: IUP at 39-3/7 weeks This is a 29-year-old 4 para 2-0-1-2 that presents to labor and delivery at 39-3/7 weeks for scheduled induction of labor. Patient has been receiving routine care which has been essentially uncomplicated. Patient has be en quite uncomfortable in the third trimester and did request elective induction of labor. Patient notes good movement occasional contractions denies loss of fluid or vaginal bleeding. On blood work this patient is a blood type of O+, rubella status immune, hepatitis B surface engine negative, HIV negative, RPR is nonreactive, hepatitis C nonreactive, grew beta strep culture negative. Review of Systems Constitutional: Denies chills, Denies fatigue, Denies fever Ears, nose, mouth and throat: Denies headache Cardiovascular: Reports leg edema Respiratory: Denies dyspnea Gastrointestinal: Denies constipation, Denies diarrhea, Denies nausea, Denies vomiting Genitourinary: Reports Past Medical History Past Medical History: Asthma Additional Past Medical History / Comment(s): syncope, IBS, tachycardia during , hypoglycemia History of Any Multi-Drug Resistant Organisms: None Reported Past Surgical History: Adenoidectomy, Tonsillectomy Additional Past Surgical History / Comment(s): childhood Past Anesthesia/Blood Transfusion Reactions: No Reported Reaction Past Psychological History: Anxiety, Depression Additional Psychological History / Comment(s): NOT ON ANY RX Smoking Status: Never smoker Past Alcohol Use History: None Reported Past Drug Use History: None Reported - Past Family History Mother History Unknown: Yes Family Medical History: Diabetes Mellitus, Hypertension, Vascular Disorder Additional Family Medical History / Comment(s): crohns, hernia, neuropathy Medications and Allergies Home Medications Medication Instructions Recorded Confirmed Type Pnv No.95/Ferrous Fum/Folic AC 1 tab PO DAILY 11/14/19 12/03/24 History [ Multivitamin Tablet] Allergies Allergy/AdvReac Type Severity Reaction Status Date / Time No Known Allergies Allergy Verified 11/11/24 09:43 Exam Osteopathic Statement: *. No significant issues noted on an osteopathic st ructural exam other than those noted in the History and Physical/Consult. Vital Signs Temp Pulse Resp BP Pulse Ox 12/21/24 16:15 98 16 121/73 12/21/24 16:00 99 16 115/67 12/21/24 15:45 85 16 106/61 12/21/24 15:30 98 16 110/65 12/21/24 15:15 78 16 111/62 12/21/24 15:00 97 16 111/64 12/21/24 14:45 83 16 110/62 12/21/24 14:30 86 16 104/53 99 12/21/24 06:40 97.2 F L 102 H 16 121/73 100 Intake and Output 12/21/24 12/21/24 12/21/24 06:59 14:59 22:59 Output Total 250 Balance -250 Output: Urine 100 Output, Estimated Blood 150 Loss Amount Other: Weight 86.636 kg Targeted physical exam is performed this date in general is a well-nourished well-developed female in no acute distress, breathing is nonlabored, he art has a regular rate and rhythm, abdomen is gravid, on cervical exam she is 2/50/-3 station vertex presentation, heart tones noted Be category 1 and she is govind irregularly. Amniotomy is performed upon examination and copious clear fluid is obtained. Results Result Diagrams: 12/21/24 06:55 Abnormal Lab Results - Last 24 Hours (Table) 12/21/24 Range/Units 06:55 WBC 12.06 H (4.50-10.00) 10*3/uL Immature Gran # 0.15 H (0.00-0.04) 10*3/uL Neutrophils # 8.45 H (1.80-7.70) 10*3/uL Assessment and Plan (1) Term Current Visit: No Status: Acute Code(s): Z34.80 - ENCOUNTER FOR SUPRVSN OF NORMAL , UNSP TRIMESTER SNOMED Code(s): 17678621 Plan: Admit to labor and delivery Pitocin induction of labor per hospital protocol Epidural when appropriate Clear liquids as tolerated Anticipate spontaneous vaginal delivery
--- NOTE | 2024-12-21 16:43 | P.PROBDLV ---
Vaginal Delivery Note - . Vaginal Delivery Note: Date of service 12/21/2024 Findings viable female delivered at 1418, weight of 7 pounds 4 ounces, Apgars of 9 and 9 at 1 and 5 minutes respectively 29-year-old at 39-3/7 weeks that presented to labor and delivery for scheduled induction of labor. Patient is admitted and Pitocin induction of labor has begun. Patient underwent amniotomy and clear fluid was obtained. Patient progressed in labor becoming uncomfortable and requesting epidural. Epidural was placed without difficulty by the anesthesia department. Patient made quick progress toward complete dilation. Once completely dilated patient began pushing and had a normal spontaneous vaginal delivery of a viable female at 1418, weight of 7 pounds 4 ounces, Apgars of 9 and 9 at 1 and 5 minutes respectively. After 2-minute delay the umbilical cord was doubly clamped and cut. Spontaneous cry was noted at . The placenta was delivered spontaneously intact with a three-vessel cord being noted. Upon complete inspection of the vaginal vault no lacerations were appreciated. All counts are correct x 2. Patient and tolerate delivery well and are resting comfortably.
[2024-12-21] MEDS: SENNOSIDES-DOCUSATE SODIUM 1 EACH TAB PO SCH (19:56)
[2024-12-21] MEDS: ACETAMINOPHEN TAB 500 MG TAB PO SCH (19:59)
[2024-12-22 07:03] LABS: Basophils # (A) 0.04 10*3/uL (0.00-0.10); Basophils % (A) 0.3 %; Eosinophils # (A) 0.06 10*3/uL (0.04-0.35); Eosinophils % (A) 0.5 %; HGB 10.6 g/dL (12.0-15.0); Lymphocytes # (A) 2.41 10*3/uL (0.90-5.00); Lymphocytes % (A) 18.7 %; MCH 30.1 pg (27.0-32.0); MCHC 33.1 g/dL (32.0-37.0); MCV 90.9 fL (80.0-97.0); Mean Platelet Volume 10.8 fL (9.5-12.2); Monocytes # (A) 1.02 10*3/uL (0.20-1.00); Monocytes % (A) 7.9 %; Neutrophils % (A) 71.6 %; Platelet Count 199 10*3/uL (140-440); RBC 3.52 10*6/uL (4.10-5.20); RDW 12.9 % (11.5-14.5); WBC 12.86 10*3/uL (4.50-10.00)
[2024-12-22 09:00] VITALS: BP 108/71; PULSE 68; RESP 16; TEMP 97.6
--- NOTE | 2024-12-22 12:04 | P.DS ---
Providers Date of admission: 12/21/24 06:17 Expected date of discharge: 12/22/24 Attending physician: Emiliana Herrera Primary care physician: Stated None - Discharge Diagnosis(es) (1) Term Current Visit: No Status: Acute (2) Status post vaginal delivery Current Visit: No Status: Acute Hospital Course: 29-year-old 4 now para 3-0-1-3 that presented to labor and delivery at 39-3/7 weeks for scheduled induction of labor. Patient had been receiving routine care which had been essentially uncomplicated. For full details in this patient please the dictated history and physical. Patient was admitted to labor and delivery and Pitocin induction of labor was begun. Patient underwent amniotomy and clear fluid was obtained. Patient did request an epidural for analgesia during labor. Patient progressed to complete began pushing at a normal spontaneous vaginal delivery of a viable female infant at 1418, weight of 7 pounds 4 ounces. No vaginal lacerations were appreciated the time of delivery. Patient's course has been uneventful. In this day #1 she is ambulating and voiding without difficulty. She is tolerating a regular diet without nausea or vomiting. States her lochia is minimal. She is planning to pump and bottle feed. Patient Condition at Discharge: Good Plan - Discharge Summary New Discharge Prescriptions: No Action Pnv No.95/Ferrous Fum/Folic AC [ Multivitamin Tablet] 1 tab PO DAILY Discharge Medication List Pnv No.95/Ferrous Fum/Folic AC [ Multivitamin Tablet] 1 tab PO DAILY 11/14/19 [History] Follow up Appointment(s)/Referral(s): Emiliana Herrera DO [Doctor of Osteopathic Medicine] - 02/04/25 1:45 pm Patient Instructions/Handouts: Vaginal Delivery (DC), Vaginal Delivery (GEN) Activity/Diet/Wound Care/Special Instructions: No tub baths or intercourse until 6 weeks . Erzd-[id number] ibuprofen 600 mg or 3 tablets every 6 hours as needed for pain. Routine check to be scheduled at 6 weeks. Should she any concerns prior to this appointment she is urged to call the office. Discharge Disposition: HOME SELF-CARE
== END 2024-12-22 15:25 | disposition home or self-care (01) | DRG 807 ==
LOC: 4FBP 06:17
PROVIDERS: ADMIT Obstetrics & Gynecology Obstetrics; ATTEND Obstetrics & Gynecology Obstetrics
PROC: 10907ZC Drainage of Amniotic Fluid, Therapeutic from Products of Conception, Via Natural or Artificial Opening (ICD-10-PCS; principal; 2024-12-21)
PROC: 10E0XZZ Delivery of Products of Conception, External Approach (ICD-10-PCS; principal; 2024-12-21)
PROC: 3E033VJ Introduction of Other Hormone into Peripheral Vein, Percutaneous Approach (ICD-10-PCS; principal; 2024-12-21)
DX: O80 Encounter for full-term uncomplicated delivery (principal); Z37.0 Single live birth; Z28.21 Immunization not carried out because of patient refusal; Z28.310 Unvaccinated for COVID-19; Z3A.39 39 weeks gestation of pregnancy
CPT/HCPCS: 85025; 86850; 86900; 86901